=== PATIENT | female | born 1985 | race African-American/Black ===

== ENCOUNTER 2016-12-07 23:38 | Inpatient (IN) | payer MEDICAID ==
[~2016-12-07] VITALS: Ht 160 cm; Wt 78.1 kg
[2016-12-07] MEDS ORDERED: FURO40TA6 PO (23:58)
[2016-12-08] VITALS (7 sets, daily range): BP systolic 143–183; BP diastolic 93–117
[2016-12-08] MEDS ORDERED: PROMETHAZINE 25 MG/ML, 1ML IM ONE (00:30)
[2016-12-08] MEDS ORDERED: SODIUM CHLORIDE FLUSH 10ML SYR IVF ONE (00:30)
[2016-12-08] MEDS ORDERED: PROMETHAZINE 25 MG/ML, 1ML ONE (00:45)
[2016-12-08 00:52] LABS: HEMATOCRIT 26.9 % (34.6-47.8); HEMOGLOBIN 8.9 g/dL (11.7-16.4); WHITE BLOOD COUNT 4.7 x10^3/uL (3.4-10)
[2016-12-08 01:02] LABS: ASPARTATE AMINO TRANSFERASE 16 U/L (15-37); BLOOD UREA NITROGEN 96 mg/dL (7-18)
[2016-12-08 01:19] LABS: IS PT STATUS REG ER OR PRE ER? YES
[2016-12-08] MEDS ORDERED: NITROGLYCERIN OINT 2%, 1GM TP ONE ×2 (01:29→01:30)
[2016-12-08] MEDS ORDERED: FUROSEMIDE 40 MG/4 ML ONE (01:39)
[2016-12-08] MEDS ORDERED: FUROSEMIDE 40 MG/4 ML IV ONE (02:00)
[2016-12-08 02:06] LABS: ACETAMINOPHEN < 2 mcg/mL (10-30)
[2016-12-08] MEDS ORDERED: TEMAZEPAM 15 MG CAPSULE PO PRN (02:30)
[2016-12-08] MEDS ORDERED: SODIUM CHLORIDE 0.9% 1,000 ML IV SCH (02:30)
[2016-12-08 03:16] LABS: TOTAL IRON BINDING CAPACITY 158 mcg/dL (250-450)
[2016-12-08 03:20] LABS: IS PT STATUS REG ER OR PRE ER? NO
[2016-12-08 03:22] LABS: HIV 1&2 ANTIBODY SCREEN Nonreactive (Nonreactive); HIV-1 p24 ANTIGEN Nonreactive (Nonreactive)
[2016-12-08] MEDS: LABETALOL 5MG/ML, 20ML IVPush PRN (03:30)
[2016-12-08 03:32] LABS: DAU SCREEN DISCLAIMER
[2016-12-08 04:41] LABS: OCCBLD OBC PASS
[2016-12-08 08:54] LABS: IS PT STATUS REG ER OR PRE ER? NO
[2016-12-08] MEDS: PANTOPRAZOLE 40 MG IV IVPush SCH (09:32)
[2016-12-08] MEDS ORDERED: CEFTRIAXONE 1,000 MG IM SCH (11:00)
[2016-12-08] MEDS: ARANESP 100 MCG/ML **ESRD SQ SCH (11:30)
[2016-12-08] MEDS: ALBUMIN HUMAN 25% 100 ML IV SCH ×2 (11:53→20:00)
[2016-12-08] MEDS: CARVEDILOL 3.125 MG TABLET PO SCH ×2 (11:53→17:19)
[2016-12-08] MEDS: CALCIUM ACETATE 667 MG CAPSULE PO SCH ×2 (12:40→17:19)
[2016-12-08] MEDS: PARICALCITOL 1 MCG CAPSULE PO SCH (12:40)
[2016-12-08] MEDS: SODIUM BICARBONATE 650 MG TABLET PO SCH ×3 (12:40→20:54)
[2016-12-08] MEDS: CEFTRIAXONE PMX 1GM/50ML 50 ML IV SCH (13:37)
[2016-12-08] MEDS: FUROSEMIDE 100 MG/10 ML IV SCH ×2 (13:38→20:53)
[2016-12-08 14:48] LABS: IS PT STATUS REG ER OR PRE ER? NO
[2016-12-08] MEDS ORDERED: MIDAZOLAM 1 MG/ML, 5ML ONE (17:07)
[2016-12-08] MEDS ORDERED: PROPOFOL 10 MG/ML, 20ML ONE (17:07)
[2016-12-08] MEDS ORDERED: VECURONIUM 10 MG ONE (17:07)
[2016-12-08] MEDS: ONDANSETRON 2MG/ML, 2ML IVPush PRN (17:28)
[2016-12-08] MEDS: hydrALAzine 20 MG/ML, 1ML IV PRN (18:30)
[2016-12-09 00:18] VITALS: BP 157/99
[2016-12-09] MEDS: CARVEDILOL 3.125 MG TABLET PO SCH ×2 (05:45→17:48)
[2016-12-09 05:54] LABS: HEMATOCRIT 24.3 % (34.6-47.8); HEMOGLOBIN 8.1 g/dL (11.7-16.4)
[2016-12-09 06:26] LABS: ASPARTATE AMINO TRANSFERASE 15 U/L (15-37); BLOOD UREA NITROGEN 97 mg/dL (7-18)
[2016-12-09 07:00] VITALS: BP 132/92
[2016-12-09] MEDS: PARICALCITOL 1 MCG CAPSULE PO SCH (08:19)
[2016-12-09] MEDS: PANTOPRAZOLE 40 MG IV IVPush SCH (08:19)
[2016-12-09] MEDS: FUROSEMIDE 100 MG/10 ML IV SCH ×4 (08:20→22:52)
[2016-12-09] MEDS: CALCIUM ACETATE 667 MG CAPSULE PO SCH ×3 (08:20→17:00)
[2016-12-09] MEDS: SODIUM BICARBONATE 650 MG TABLET PO SCH ×3 (08:20→21:12)
[2016-12-09] MEDS: ONDANSETRON 2MG/ML, 2ML IVPush PRN ×2 (08:35→23:42)
[2016-12-09] MEDS: ALBUMIN HUMAN 25% 100 ML IV SCH ×2 (09:56→21:12)
[2016-12-09] MEDS: CEFTRIAXONE PMX 1GM/50ML 50 ML IV SCH (11:20)
[2016-12-09 13:41] LABS: ANA SCREEN POSITIVE (Negative)
[2016-12-09] MEDS ORDERED: MIDAZOLAM 1 MG/ML, 5ML ONE (15:43)
[2016-12-09] MEDS ORDERED: FLUMAZENIL 0.1 MG/1 ML, 5ML ONE (15:43)
[2016-12-09] MEDS ORDERED: FENTANYL PF 100 MCG/2ML ONE (15:43)
[2016-12-09] MEDS ORDERED: NALOXONE 1 MG/ML, 2ML ONE (15:43)
[2016-12-09] MEDS ORDERED: LIDOCAINE 2%, 20ML ONE (16:52)
[2016-12-09 21:05] VITALS: BP 147/96
[2016-12-09] MEDS: ATORVASTATIN 20 MG TABLET PO SCH (21:12)
[2016-12-09 22:51] VITALS: BP 139/96
[2016-12-10 02:46] VITALS: BP 156/88
[2016-12-10 05:48] VITALS: BP 134/86
[2016-12-10] MEDS: CARVEDILOL 3.125 MG TABLET PO SCH ×2 (05:49→18:22)
[2016-12-10 06:12] LABS: BLOOD UREA NITROGEN 73 mg/dL (7-18)
[2016-12-10 07:25] VITALS: BP 136/92
[2016-12-10] MEDS: GUAIFENESIN/DM 200-20MG, 10ML UDC PO PRN (07:45)
[2016-12-10] MEDS: PARICALCITOL 1 MCG CAPSULE PO SCH (07:45)
[2016-12-10] MEDS: SODIUM BICARBONATE 650 MG TABLET PO SCH ×3 (07:45→22:29)
[2016-12-10] MEDS: ONDANSETRON 2MG/ML, 2ML IVPush PRN ×3 (07:45→18:28)
[2016-12-10] MEDS: CALCIUM ACETATE 667 MG CAPSULE PO SCH ×3 (07:47→18:21)
[2016-12-10] MEDS: morphine SULFATE 10 MG/ML, 1ML IVPush PRN ×2 (07:47→22:29)
[2016-12-10] MEDS: ALBUMIN HUMAN 25% 100 ML IV SCH ×2 (10:03→20:53)
[2016-12-10 12:07] LABS: A/G RATIO 0.5 (0.7-1.7); ALBUMIN 1.6 g/dL (2.9-4.4); ALPHA-1-GLOBULIN 0.3 g/dL (0.0-0.4); BETA GLOBULIN 0.7 g/dL (0.7-1.3); GAMMA GLOBULIN 1.7 g/dL (0.4-1.8)
[2016-12-10 12:51] VITALS: BP 135/89
[2016-12-10] MEDS: ERGOCALCIFEROL 50,000 UNIT CAPSULE PO SCH (12:59)
[2016-12-10] MEDS: CEFTRIAXONE PMX 1GM/50ML 50 ML IV SCH (12:59)
[2016-12-10] MEDS: FUROSEMIDE 100 MG/10 ML IV SCH ×2 (12:59→22:29)
[2016-12-10] MEDS: ALBUMIN HUMAN 25% 50 ML IV PRN (15:08)
[2016-12-10 21:00] VITALS: BP 144/97
[2016-12-10] MEDS: ATORVASTATIN 20 MG TABLET PO SCH (22:29)
[2016-12-11 01:50] VITALS: BP 125/79
[2016-12-11 03:06] LABS: COMPLEMENT C3 45 mg/dL (82-167); COMPLEMENT C4 9 mg/dL (14-44); COMPLEMENT TOTAL (CH50) 24 U/mL (42-60)
[2016-12-11 05:41] VITALS: BP 144/97
[2016-12-11] MEDS: CARVEDILOL 3.125 MG TABLET PO SCH (05:42)
[2016-12-11 06:16] LABS: BLOOD UREA NITROGEN 45 mg/dL (7-18)
[2016-12-11 07:23] LABS: WHITE BLOOD COUNT 3.8 x10^3/uL (3.4-10)
[2016-12-11 07:24] LABS: HEMATOCRIT 13.7 % (34.6-47.8); HEMOGLOBIN 4.7 g/dL (11.7-16.4)
[2016-12-11 07:43] LABS: HYPOCHROMIA 1+; OVALOCYTES 1+
[2016-12-11 07:59] VITALS: BP 132/90
[2016-12-11] MEDS: CALCIUM ACETATE 667 MG CAPSULE PO SCH ×2 (08:00→14:54)
[2016-12-11] MEDS ORDERED: LIDOCAINE 1%, 20ML ONE ×2 (08:39→10:21)
[2016-12-11] MEDS ORDERED: FENTANYL PF 100 MCG/2ML ONE (08:47)
[2016-12-11] MEDS ORDERED: MIDAZOLAM 1 MG/ML, 5ML ONE ×2 (08:47→08:48)
[2016-12-11] MEDS ORDERED: NALOXONE 1 MG/ML, 2ML ONE (08:48)
[2016-12-11] MEDS ORDERED: FLUMAZENIL 0.1 MG/1 ML, 5ML ONE (08:48)
[2016-12-11] MEDS: PARICALCITOL 1 MCG CAPSULE PO SCH (09:00)
[2016-12-11] MEDS ORDERED: FUROSEMIDE 20 MG/2 ML ONE (10:10)
[2016-12-11] MEDS ORDERED: BENZOCAINE 20% SPRAY 0.5ML ONE (10:21)
[2016-12-11] MEDS ORDERED: PROPOFOL 100 ML IV ONE (11:08)
[2016-12-11] MEDS ORDERED: VECURONIUM 10 MG ONE ×2 (11:09→14:46)
[2016-12-11] MEDS: hydrALAzine 20 MG/ML, 1ML IV PRN (12:04)
[2016-12-11 12:05] LABS: ABG COLLECTION SITE RIGHT RADIAL; COLLATERAL CIRCULATION TESTING NORMAL
[2016-12-11 12:06] LABS: FIO2 100 %
[2016-12-11 12:07] LABS: UR ALBUMIN 48.4 % (.); UR ALPHA-1-GLOBULIN 4.6 % (.); UR ALPHA-2-GLOBULIN 6.4 % (.); UR BETA GLOBULIN 8.6 % (.); UR GAMMA GLOBULIN 31.9 % (.); UR M-SPIKE % Not Observed % (Not Observed)
[2016-12-11] MEDS: LABETALOL 5MG/ML, 20ML IVPush PRN (12:12)
[2016-12-11] MEDS: ACETAMINOPHEN 325 MG TABLET PO PRN ×2 (12:19→19:53)
[2016-12-11 12:43] LABS: HEMOGLOBIN 8.9 g/dL (11.7-16.4)
[2016-12-11] MEDS: PROPOFOL 100 ML IV PRN ×3 (12:51→23:23)
[2016-12-11] MEDS: CEFTRIAXONE PMX 1GM/50ML 50 ML IV SCH (12:57)
[2016-12-11] MEDS ORDERED: ETOMIDATE 20 MG/10 ML ONE (13:00)
[2016-12-11] MEDS ORDERED: SUCCINYLCHOLINE 20 MG/ML, 10ML ONE (13:00)
[2016-12-11] MEDS ORDERED: LIDOCAINE-MPF 1%, 2ML ONE (13:50)
[2016-12-11] MEDS: ALBUTEROL/IPRATROPIUM 2.5MG/0.5MG, 3 ML INLINE SCH ×3 (14:19→22:54)
[2016-12-11] MEDS ORDERED: VECURONIUM 10 MG IVPush ONE (15:00)
[2016-12-11] MEDS ORDERED: PROPOFOL 100 ML IV PRN (15:26)
[2016-12-11] MEDS ORDERED: LACTULOSE 20 GM/30 ML UDC NG PRN (15:30)
[2016-12-11] MEDS ORDERED: PHARMACY MAY ADJ FOR RENAL FX MC SCH (15:30)
[2016-12-11] MEDS ORDERED: SENNOSIDES 8.8 MG/5 ML ORAL SOL NG PRN (15:30)
[2016-12-11] MEDS ORDERED: LIDOCAINE-MPF 1%, 2ML ENDO PRN (15:30)
[2016-12-11] MEDS ORDERED: SENNA/DOCUSATE TABLET NG PRN (15:30)
[2016-12-11] MEDS ORDERED: BISACODYL 10 MG SUPP PR PRN (15:30)
[2016-12-11] MEDS: FENTANYL PF 100 MCG/2ML IVPush PRN ×3 (17:03→18:14)
[2016-12-11] MEDS ORDERED: VECURONIUM 10 MG IVPush PRN (19:30)
[2016-12-11] MEDS: MIDAZOLAM 1 MG/ML, 2ML IVPush PRN (19:53)
[2016-12-11] MEDS: ATORVASTATIN 20 MG TABLET PO SCH (19:53)
[2016-12-12] MEDS: MIDAZOLAM 1 MG/ML, 2ML IVPush PRN ×2 (01:19→03:03)
[2016-12-12] MEDS: ALBUTEROL/IPRATROPIUM 2.5MG/0.5MG, 3 ML INLINE SCH ×4 (03:00→15:00)
[2016-12-12 04:29] LABS: ABG COLLECTION SITE RIGHT RADIAL; COLLATERAL CIRCULATION TESTING NORMAL
[2016-12-12 05:10] LABS: BLOOD UREA NITROGEN 33 mg/dL (7-18)
[2016-12-12 05:11] LABS: HEMATOCRIT 23.9 % (34.6-47.8); HEMOGLOBIN 8.3 g/dL (11.7-16.4); WHITE BLOOD COUNT 7.8 x10^3/uL (3.4-10)
[2016-12-12 05:14] LABS: ASPARTATE AMINO TRANSFERASE 42 U/L (15-37)
[2016-12-12] MEDS: PROPOFOL 100 ML IV PRN ×2 (05:23→10:30)
[2016-12-12] MEDS ORDERED: PANTOPRAZOLE 40 MG IV IV SCH (09:00)
[2016-12-12] MEDS: CALCIUM ACETATE 667 MG CAPSULE PO SCH ×3 (09:28→18:55)
[2016-12-12] MEDS: PARICALCITOL 1 MCG CAPSULE PO SCH ×2 (09:29→14:47)
[2016-12-12] MEDS: CEFTRIAXONE PMX 1GM/50ML 50 ML IV SCH (12:48)
[2016-12-12] MEDS: ATORVASTATIN 20 MG TABLET PO SCH (19:14)
[2016-12-13] VITALS (9 sets, daily range): BP systolic 122–154; BP diastolic 80–106
[2016-12-13] MEDS: ONDANSETRON 2MG/ML, 2ML IVPush PRN ×3 (01:30→18:01)
[2016-12-13 04:26] LABS: ABG COLLECTION SITE LEFT RADIAL; COLLATERAL CIRCULATION TESTING NORMAL
[2016-12-13 04:37] LABS: WHITE BLOOD COUNT 9.8 x10^3/uL (3.4-10)
[2016-12-13 04:43] LABS: BLOOD UREA NITROGEN 31 mg/dL (7-18)
[2016-12-13 04:48] LABS: HEMATOCRIT 20.6 % (34.6-47.8)
[2016-12-13 05:19] LABS: DIFF TOTAL CELLS COUNTED 100 CELL DIFF
[2016-12-13 05:21] LABS: VERIFY COUNTS? YES
[2016-12-13 05:22] LABS: ANISOCYTOSIS 1+; HYPOCHROMIA 1+; OVALOCYTES 1+; POLYCHROMASIA 1+
[2016-12-13] MEDS: CALCIUM ACETATE 667 MG CAPSULE PO SCH ×3 (09:10→17:53)
[2016-12-13] MEDS: CEFTRIAXONE PMX 1GM/50ML 50 ML IV SCH (14:31)
[2016-12-13] MEDS ORDERED: ALBUTEROL SULFATE 2.5 MG/3 ML ONE (16:41)
[2016-12-13] MEDS ORDERED: ALBUTEROL SULFATE 2.5 MG/3 ML NPPB PRN (17:00)
[2016-12-13] MEDS: ATORVASTATIN 20 MG TABLET PO SCH (21:17)
[2016-12-13] MEDS: GUAIFENESIN/DM 200-20MG, 10ML UDC PO PRN (21:18)
[2016-12-13] MEDS: LABETALOL 5MG/ML, 20ML IVPush PRN (21:30)
[2016-12-13 22:35] LABS: ABG COLLECTION SITE RIGHT BRACHIAL
[2016-12-13] MEDS ORDERED: FUROSEMIDE 100 MG/10 ML IV ONE (23:30)
[2016-12-14] MEDS ORDERED: FENTANYL PF 100 MCG/2ML ONE
[2016-12-14] MEDS ORDERED: FENTANYL PF 2,500 MCG in SODIUM CHLORIDE 0.9% 200 ML IV PRN (00:19)
[2016-12-14] MEDS ORDERED: FENTANYL PF 100 MCG/2ML IVPush PRN (00:30)
[2016-12-14] MEDS ORDERED: BISACODYL 10 MG SUPP PR PRN (00:30)
[2016-12-14] MEDS ORDERED: VECURONIUM 10 MG IVPush ONE (00:30)
[2016-12-14] MEDS ORDERED: SENNOSIDES 8.8 MG/5 ML ORAL SOL NG PRN (00:30)
[2016-12-14] MEDS ORDERED: LACTULOSE 20 GM/30 ML UDC NG PRN (00:30)
[2016-12-14] MEDS ORDERED: MIDAZOLAM 1 MG/ML, 5ML IVPush ONE ×2 (00:30)
[2016-12-14] MEDS ORDERED: FENTANYL PF 100 MCG/2ML IV ONE (00:30)
[2016-12-14] MEDS ORDERED: LIDOCAINE-MPF 1%, 2ML ENDO PRN (00:30)
[2016-12-14] MEDS ORDERED: PHARMACY MAY ADJ FOR RENAL FX MC SCH (00:30)
[2016-12-14] MEDS ORDERED: MIDAZOLAM 1 MG/ML, 2ML IVPush PRN (00:30)
[2016-12-14 01:06] LABS: ABG COLLECTION SITE LEFT BRACHIAL
[2016-12-14] MEDS: ALBUTEROL/IPRATROPIUM 2.5MG/0.5MG, 3 ML INLINE SCH ×6 (02:25→21:21)
[2016-12-14] MEDS: PROPOFOL 100 ML IV PRN ×4 (03:48→19:52)
[2016-12-14 04:23] LABS: ABG COLLECTION SITE RIGHT RADIAL; COLLATERAL CIRCULATION TESTING NORMAL
[2016-12-14 04:29] LABS: HEMATOCRIT 29.2 % (34.6-47.8); HEMOGLOBIN 9.9 g/dL (11.7-16.4); WHITE BLOOD COUNT 8.8 x10^3/uL (3.4-10)
[2016-12-14 04:38] LABS: BLOOD UREA NITROGEN 53 mg/dL (7-18)
[2016-12-14 05:00] VITALS: BP 122/85
[2016-12-14] MEDS: PARICALCITOL 1 MCG CAPSULE PO SCH (09:00)
[2016-12-14] MEDS: CALCIUM ACETATE 667 MG CAPSULE PO SCH ×3 (09:44→19:23)
[2016-12-14] MEDS: CARVEDILOL 3.125 MG TABLET PO SCH ×2 (09:44→19:22)
[2016-12-14] MEDS: PANTOPRAZOLE 40 MG IV IVPush SCH (09:45)
[2016-12-14] MEDS ORDERED: ALBUMIN HUMAN 25% 50 ML IV PRN (10:30)
[2016-12-14] MEDS: ALBUMIN HUMAN 25% 50 ML IV PRN ×2 (12:18→13:15)
[2016-12-14] MEDS: LINEZOLID PMX 600MG/300ML 300 ML IV SCH ×2 (15:00→19:44)
[2016-12-14] MEDS: ATORVASTATIN 20 MG TABLET PO SCH (21:11)
[2016-12-15] MEDS: ALBUTEROL/IPRATROPIUM 2.5MG/0.5MG, 3 ML INLINE SCH ×4 (01:40→14:15)
[2016-12-15] MEDS: PROPOFOL 100 ML IV PRN ×2 (01:42→12:03)
[2016-12-15] MEDS ORDERED: DOPAMINE/D5W PMX 250 ML ONE (03:30)
[2016-12-15] MEDS ORDERED: NOREPINEPHRINE 1 MG/ML, 4ML ONE (03:30)
[2016-12-15 04:00] VITALS: BP 120/70
[2016-12-15 04:16] LABS: ABG COLLECTION SITE RIGHT RADIAL; COLLATERAL CIRCULATION TESTING NORMAL
[2016-12-15 05:02] LABS: HEMATOCRIT 24.4 % (34.6-47.8); HEMOGLOBIN 8.2 g/dL (11.7-16.4); WHITE BLOOD COUNT 6.9 x10^3/uL (3.4-10)
[2016-12-15 05:07] LABS: ASPARTATE AMINO TRANSFERASE 24 U/L (15-37); BLOOD UREA NITROGEN 43 mg/dL (7-18)
[2016-12-15] MEDS: CARVEDILOL 3.125 MG TABLET PO SCH ×2 (05:42→17:43)
[2016-12-15] MEDS: LINEZOLID PMX 600MG/300ML 300 ML IV SCH (07:48)
[2016-12-15] MEDS: PANTOPRAZOLE 40 MG IV IVPush SCH (07:48)
[2016-12-15] MEDS: CALCIUM ACETATE 667 MG CAPSULE PO SCH ×3 (08:00→13:29)
[2016-12-15] MEDS ORDERED: predniSONE 50MG TABLET PO SCH (11:00)
[2016-12-15] MEDS: HEPARIN 5,000 UNITS/ML, 1ML SQ SCH ×2 (11:57→19:59)
[2016-12-15] MEDS: PARICALCITOL 1 MCG CAPSULE PO SCH (13:28)
[2016-12-15] MEDS: CEFAZOLIN PMX 1GM/50ML 50 ML IV SCH (13:29)
[2016-12-15] MEDS: ARANESP 100 MCG/ML **ESRD SQ SCH (15:16)
[2016-12-15] MEDS ORDERED: ALBUTEROL/IPRATROPIUM 2.5MG/0.5MG, 3 ML NPPB SCH (19:00)
[2016-12-15] MEDS: ATORVASTATIN 20 MG TABLET PO SCH (20:00)
[2016-12-16 04:25] LABS: ABG COLLECTION SITE RIGHT RADIAL
[2016-12-16 04:26] LABS: COLLATERAL CIRCULATION TESTING NORMAL
[2016-12-16 04:29] LABS: HEMATOCRIT 25.3 % (34.6-47.8); HEMOGLOBIN 8.5 g/dL (11.7-16.4); WHITE BLOOD COUNT 9.7 x10^3/uL (3.4-10)
[2016-12-16 04:41] LABS: BLOOD UREA NITROGEN 41 mg/dL (7-18)
[2016-12-16] MEDS: CARVEDILOL 3.125 MG TABLET PO SCH ×2 (05:15→18:25)
[2016-12-16] MEDS: SENNA/DOCUSATE TABLET NG PRN ×2 (05:15→10:06)
[2016-12-16 05:30] VITALS: BP 130/90
[2016-12-16] MEDS: ONDANSETRON 2MG/ML, 2ML IVPush PRN (08:23)
[2016-12-16] MEDS: GUAIFENESIN/DM 200-20MG, 10ML UDC PO PRN (08:24)
[2016-12-16] MEDS: PANTOPRAZOLE 40 MG IV IVPush SCH (08:24)
[2016-12-16] MEDS: CALCIUM ACETATE 667 MG CAPSULE PO SCH ×3 (10:00→18:26)
[2016-12-16] MEDS: HEPARIN 5,000 UNITS/ML, 1ML SQ SCH ×2 (10:06→21:42)
[2016-12-16] MEDS: PARICALCITOL 1 MCG CAPSULE PO SCH (10:07)
[2016-12-16] MEDS: CEFAZOLIN PMX 1GM/50ML 50 ML IV SCH (15:30)
[2016-12-16 20:00] VITALS: BP 135/81
[2016-12-16] MEDS: ATORVASTATIN 20 MG TABLET PO SCH (21:42)
[2016-12-17 02:00] VITALS: BP 137/86
[2016-12-17] MEDS: CARVEDILOL 3.125 MG TABLET PO SCH ×2 (05:36→17:22)
[2016-12-17 06:31] LABS: ABG COLLECTION SITE RIGHT RADIAL; COLLATERAL CIRCULATION TESTING NORMAL
[2016-12-17 06:38] LABS: HEMATOCRIT 28.2 % (34.6-47.8); HEMOGLOBIN 9.4 g/dL (11.7-16.4); WHITE BLOOD COUNT 7.9 x10^3/uL (3.4-10)
[2016-12-17 06:45] LABS: BLOOD UREA NITROGEN 32 mg/dL (7-18)
[2016-12-17 07:45] VITALS: BP 138/88
[2016-12-17] MEDS: CALCIUM ACETATE 667 MG CAPSULE PO SCH ×3 (09:11→17:22)
[2016-12-17] MEDS: HEPARIN 5,000 UNITS/ML, 1ML SQ SCH ×2 (09:30→21:23)
[2016-12-17] MEDS: PANTOPRAZOLE 40 MG IV IVPush SCH (13:49)
[2016-12-17] MEDS: CEFAZOLIN PMX 1GM/50ML 50 ML IV SCH (13:49)
[2016-12-17] MEDS: ERGOCALCIFEROL 50,000 UNIT CAPSULE PO SCH (13:49)
[2016-12-17] MEDS: PARICALCITOL 1 MCG CAPSULE PO SCH (13:49)
[2016-12-17 14:39] VITALS: BP 141/91
[2016-12-17 20:00] VITALS: BP 130/87
[2016-12-17] MEDS: ATORVASTATIN 20 MG TABLET PO SCH (21:23)
[2016-12-18 02:00] VITALS: BP 146/92
[2016-12-18] MEDS: CARVEDILOL 3.125 MG TABLET PO SCH ×2 (05:29→17:44)
[2016-12-18 05:37] LABS: HEMATOCRIT 28.8 % (34.6-47.8); HEMOGLOBIN 9.6 g/dL (11.7-16.4); WHITE BLOOD COUNT 8.3 x10^3/uL (3.4-10)
[2016-12-18 05:44] LABS: BLOOD UREA NITROGEN 33 mg/dL (7-18)
[2016-12-18 08:46] VITALS: BP 149/92
[2016-12-18] MEDS: PANTOPRAZOLE 40 MG IV IVPush SCH (08:50)
[2016-12-18] MEDS: HEPARIN 5,000 UNITS/ML, 1ML SQ SCH ×2 (08:51→21:13)
[2016-12-18] MEDS: CALCIUM ACETATE 667 MG CAPSULE PO SCH ×3 (08:51→17:43)
[2016-12-18] MEDS: PARICALCITOL 1 MCG CAPSULE PO SCH (13:51)
[2016-12-18] MEDS: CEFAZOLIN PMX 1GM/50ML 50 ML IV SCH (13:51)
[2016-12-18 15:33] VITALS: BP 147/105
[2016-12-18 18:49] VITALS: BP 153/102
[2016-12-18] MEDS: ATORVASTATIN 20 MG TABLET PO SCH (21:13)
[2016-12-19 02:52] VITALS: BP 126/87
[2016-12-19 05:00] LABS: HEMATOCRIT 28.5 % (34.6-47.8); HEMOGLOBIN 9.4 g/dL (11.7-16.4); WHITE BLOOD COUNT 9.6 x10^3/uL (3.4-10)
[2016-12-19 05:16] LABS: BLOOD UREA NITROGEN 60 mg/dL (7-18)
[2016-12-19] MEDS: CARVEDILOL 3.125 MG TABLET PO SCH ×2 (05:45→18:19)
[2016-12-19 06:58] VITALS: BP 150/107
[2016-12-19] MEDS: HEPARIN 5,000 UNITS/ML, 1ML SQ SCH ×2 (09:05→21:19)
[2016-12-19] MEDS: PARICALCITOL 1 MCG CAPSULE PO SCH (09:05)
[2016-12-19] MEDS: CALCIUM ACETATE 667 MG CAPSULE PO SCH ×3 (09:05→18:19)
[2016-12-19] MEDS: PANTOPROZOLE 40MG TABLET PO SCH (12:24)
[2016-12-19] MEDS: CEFAZOLIN PMX 1GM/50ML 50 ML IV SCH (13:19)
[2016-12-19 15:22] VITALS: BP 132/91
[2016-12-19 19:37] VITALS: BP 127/92
[2016-12-19] MEDS: ATORVASTATIN 20 MG TABLET PO SCH (21:19)
[2016-12-20 01:40] VITALS: BP 138/89
[2016-12-20 05:42] LABS: BLOOD UREA NITROGEN 48 mg/dL (7-18)
[2016-12-20] MEDS: CARVEDILOL 3.125 MG TABLET PO SCH ×2 (05:42→17:07)
[2016-12-20 06:01] LABS: HEMATOCRIT 29.5 % (34.6-47.8); HEMOGLOBIN 9.7 g/dL (11.7-16.4); WHITE BLOOD COUNT 11.7 x10^3/uL (3.4-10)
[2016-12-20 06:45] LABS: ANISOCYTOSIS 2+
[2016-12-20 06:46] LABS: LARGE PLATELETS 1+; POLYCHROMASIA 2+
[2016-12-20 06:47] LABS: POIKILOCYTOSIS 1+; SPHEROCYTES 1+
[2016-12-20 08:18] VITALS: BP 148/106
[2016-12-20] MEDS: CALCIUM ACETATE 667 MG CAPSULE PO SCH ×3 (08:47→17:07)
[2016-12-20] MEDS: PANTOPROZOLE 40MG TABLET PO SCH (08:47)
[2016-12-20] MEDS: PARICALCITOL 1 MCG CAPSULE PO SCH (08:48)
[2016-12-20] MEDS: HEPARIN 5,000 UNITS/ML, 1ML SQ SCH ×2 (08:49→21:06)
[2016-12-20 13:16] VITALS: BP 137/88
[2016-12-20 13:58] LABS: BLOOD UREA NITROGEN 57 mg/dL (7-18)
[2016-12-20] MEDS: CEFAZOLIN PMX 1GM/50ML 50 ML IV SCH (14:26)
[2016-12-20 20:00] VITALS: BP 159/101
[2016-12-20] MEDS: ATORVASTATIN 20 MG TABLET PO SCH (21:05)
[2016-12-20 21:10] VITALS: BP 149/106
[2016-12-21 03:59] VITALS: BP 147/96
[2016-12-21] MEDS: CARVEDILOL 3.125 MG TABLET PO SCH ×2 (05:38→17:07)
[2016-12-21 06:06] LABS: HEMATOCRIT 29.1 % (34.6-47.8); HEMOGLOBIN 9.7 g/dL (11.7-16.4); WHITE BLOOD COUNT 12.2 x10^3/uL (3.4-10)
[2016-12-21 06:37] LABS: ASPARTATE AMINO TRANSFERASE 27 U/L (15-37); BLOOD UREA NITROGEN 66 mg/dL (7-18)
[2016-12-21 08:35] VITALS: BP 131/85
[2016-12-21] MEDS: HEPARIN 5,000 UNITS/ML, 1ML SQ SCH ×2 (08:49→21:17)
[2016-12-21] MEDS: PANTOPROZOLE 40MG TABLET PO SCH (08:49)
[2016-12-21] MEDS: PARICALCITOL 1 MCG CAPSULE PO SCH (08:49)
[2016-12-21] MEDS: CALCIUM ACETATE 667 MG CAPSULE PO SCH ×3 (08:50→17:06)
[2016-12-21 12:53] VITALS: BP 147/110
[2016-12-21] MEDS: CEFAZOLIN PMX 1GM/50ML 50 ML IV SCH (14:58)
[2016-12-21 17:07] VITALS: BP 131/97
[2016-12-21] MEDS: ONDANSETRON 2MG/ML, 2ML IVPush PRN (18:49)
[2016-12-21] MEDS ORDERED: TEMAZEPAM 15 MG CAPSULE PO PRN (20:30)
[2016-12-21] MEDS ORDERED: PHARMACY MAY ADJ FOR RENAL FX MC SCH (20:30)
[2016-12-21] MEDS ORDERED: BISACODYL 10 MG SUPP PR PRN ×2 (20:30)
[2016-12-21] MEDS ORDERED: ACETAMINOPHEN 325 MG TABLET PO PRN (20:30)
[2016-12-21] MEDS ORDERED: FENTANYL PF 100 MCG/2ML IVPush PRN (20:30)
[2016-12-21 20:56] VITALS: BP 165/109
[2016-12-21] MEDS: ATORVASTATIN 20 MG TABLET PO SCH (21:00)
[2016-12-22 02:18] VITALS: BP 152/90
[2016-12-22] MEDS: CARVEDILOL 3.125 MG TABLET PO SCH ×2 (05:20→18:45)
[2016-12-22 06:00] LABS: HEMATOCRIT 27.9 % (34.6-47.8); HEMOGLOBIN 9.4 g/dL (11.7-16.4); WHITE BLOOD COUNT 12.9 x10^3/uL (3.4-10)
[2016-12-22 06:06] LABS: BLOOD UREA NITROGEN 86 mg/dL (7-18)
[2016-12-22 07:13] VITALS: BP 148/90
[2016-12-22] MEDS: CALCIUM ACETATE 667 MG CAPSULE PO SCH ×3 (08:30→18:45)
[2016-12-22] MEDS: PANTOPROZOLE 40MG TABLET PO SCH (08:30)
[2016-12-22] MEDS: HEPARIN 5,000 UNITS/ML, 1ML SQ SCH (12:07)
[2016-12-22] MEDS: ARANESP 100 MCG/ML **ESRD SQ SCH (12:07)
[2016-12-22] MEDS: LISINOPRIL 10 MG TABLET PO SCH ×2 (12:08→21:21)
[2016-12-22] MEDS: CALCITRIOL 0.25 MCG CAPSULE PO SCH (12:08)
[2016-12-22 15:00] VITALS: BP 144/92
[2016-12-22] MEDS: CEFAZOLIN PMX 1GM/50ML 50 ML IV SCH (16:24)
[2016-12-22 20:26] VITALS: BP 152/100
[2016-12-22] MEDS: ATORVASTATIN 20 MG TABLET PO SCH (21:21)
[2016-12-23] MEDS: HEPARIN 5,000 UNITS/ML, 1ML SQ SCH ×2 (00:33→12:27)
[2016-12-23 01:34] VITALS: BP 149/93
[2016-12-23] MEDS: CARVEDILOL 3.125 MG TABLET PO SCH ×2 (05:31→17:28)
[2016-12-23 07:33] VITALS: BP 143/91
[2016-12-23 07:45] LABS: ASPARTATE AMINO TRANSFERASE 23 U/L (15-37); BLOOD UREA NITROGEN 49 mg/dL (7-18)
[2016-12-23 08:23] LABS: HEMATOCRIT 28.9 % (34.6-47.8); HEMOGLOBIN 9.6 g/dL (11.7-16.4); WHITE BLOOD COUNT 11.8 x10^3/uL (3.4-10)
[2016-12-23] MEDS: LISINOPRIL 10 MG TABLET PO SCH ×2 (09:14→20:33)
[2016-12-23] MEDS: CALCITRIOL 0.25 MCG CAPSULE PO SCH (09:14)
[2016-12-23] MEDS: PANTOPROZOLE 40MG TABLET PO SCH (09:14)
[2016-12-23] MEDS: CALCIUM ACETATE 667 MG CAPSULE PO SCH ×3 (09:14→17:28)
[2016-12-23] MEDS: CEFAZOLIN PMX 1GM/50ML 50 ML IV SCH (14:50)
[2016-12-23 14:57] VITALS: BP 125/89
[2016-12-23 20:00] VITALS: BP 134/98
[2016-12-23] MEDS: ATORVASTATIN 20 MG TABLET PO SCH (20:33)
[2016-12-24] MEDS: HEPARIN 5,000 UNITS/ML, 1ML SQ SCH ×2 (00:06→12:00)
[2016-12-24 01:24] VITALS: BP 155/103
[2016-12-24 05:15] LABS: HEMATOCRIT 28.8 % (34.6-47.8); HEMOGLOBIN 9.5 g/dL (11.7-16.4)
[2016-12-24 05:25] LABS: BLOOD UREA NITROGEN 47 mg/dL (7-18)
[2016-12-24] MEDS: CARVEDILOL 3.125 MG TABLET PO SCH (05:28)
[2016-12-24 08:01] VITALS: BP 153/92
[2016-12-24] MEDS ORDERED: PANT40TA5 PO (08:27)
[2016-12-24] MEDS ORDERED: ATOR20TA9 PO (08:27)
[2016-12-24] MEDS ORDERED: PRED20TA PO ×2 (08:27→08:37)
[2016-12-24] MEDS ORDERED: MYCO250C PO (08:27)
[2016-12-24] MEDS ORDERED: CALC0.25 PO (08:27)
[2016-12-24] MEDS ORDERED: CARV3.1212 PO (08:27)
[2016-12-24] MEDS ORDERED: LISI-167 PO (08:27)
[2016-12-24] MEDS ORDERED: ERGO500017 PO (08:27)
[2016-12-24] MEDS ORDERED: CEFD300C37 PO (08:32)
[2016-12-24] MEDS: CALCITRIOL 0.25 MCG CAPSULE PO SCH (08:32)
[2016-12-24] MEDS: ERGOCALCIFEROL 50,000 UNIT CAPSULE PO SCH (08:32)
[2016-12-24] MEDS: LISINOPRIL 10 MG TABLET PO SCH (08:32)
[2016-12-24] MEDS: CALCIUM ACETATE 667 MG CAPSULE PO SCH (08:33)
[2016-12-24] MEDS: PANTOPROZOLE 40MG TABLET PO SCH (08:33)
[2016-12-24] MEDS ORDERED: FUROSEMIDE 80 MG TABLET PO SCH (10:00)
== END 2016-12-24 13:30 | disposition home health service (06) | DRG 270 ==
LOC: ED 23:59 → EDIP 12-08 01:34 → 5SO 12-08 03:02 → 4EST 12-08 12:30 → CCU 12-11 10:46 → 4WST 12-13 16:51 → CCU 12-13 22:54 → 4WST 12-16 16:59 → DCLOUNGE 12-24 13:05
PROVIDERS: ADMIT Internal Medicine; ATTEND Internal Medicine
PROC: 5A1D60Z (ICD-10-PCS; 2016-12-08)
PROC: 02HV33Z Insertion of Infusion Device into Superior Vena Cava, Percutaneous Approach (ICD-10-PCS; principal; 2016-12-09)
PROC: B5181ZA Fluoroscopy of Superior Vena Cava using Low Osmolar Contrast, Guidance (ICD-10-PCS; 2016-12-09)
PROC: 0TB13ZX Excision of Left Kidney, Percutaneous Approach, Diagnostic (ICD-10-PCS; 2016-12-09)
PROC: 04VA3DZ Restriction of Left Renal Artery with Intraluminal Device, Percutaneous Approach (ICD-10-PCS; 2016-12-11)
PROC: 30233N1 Transfusion of Nonautologous Red Blood Cells into Peripheral Vein, Percutaneous Approach (ICD-10-PCS; 2016-12-11)
PROC: 02HV33Z Insertion of Infusion Device into Superior Vena Cava, Percutaneous Approach (ICD-10-PCS; 2016-12-11)
PROC: B548ZZA Ultrasonography of Superior Vena Cava, Guidance (ICD-10-PCS; 2016-12-11)
PROC: B5181ZA Fluoroscopy of Superior Vena Cava using Low Osmolar Contrast, Guidance (ICD-10-PCS; 2016-12-11)
PROC: 5A1955Z Respiratory Ventilation, Greater than 96 Consecutive Hours (ICD-10-PCS; 2016-12-11)
PROC: 0BH17EZ Insertion of Endotracheal Airway into Trachea, Via Natural or Artificial Opening (ICD-10-PCS; 2016-12-11)
DX: I13.2 Hypertensive heart and chronic kidney disease with heart failure and with stage 5 chronic kidney disease, or end stage renal disease (principal); J96.01 Acute respiratory failure with hypoxia; E43 Unspecified severe protein-calorie malnutrition; J15.211 Pneumonia due to Methicillin susceptible Staphylococcus aureus; K66.1 Hemoperitoneum; N17.9 Acute kidney failure, unspecified; Z99.11 Dependence on respirator [ventilator] status; I31.3 Pericardial effusion (noninflammatory); N18.6 End stage renal disease; I50.41 Acute combined systolic (congestive) and diastolic (congestive) heart failure; E87.2 Acidosis; R18.8 Other ascites; D62 Acute posthemorrhagic anemia; E87.1 Hypo-osmolality and hyponatremia; I16.9 Hypertensive crisis, unspecified; J98.11 Atelectasis; N39.0 Urinary tract infection, site not specified; S37.012A Minor contusion of left kidney, initial encounter; N02.2 Recurrent and persistent hematuria with diffuse membranous glomerulonephritis; N04.9 Nephrotic syndrome with unspecified morphologic changes; B96.20 Unspecified Escherichia coli [E. coli] as the cause of diseases classified elsewhere; E77.8 Other disorders of glycoprotein metabolism; E83.42 Hypomagnesemia; E83.39 Other disorders of phosphorus metabolism; D63.1 Anemia in chronic kidney disease; E78.5 Hyperlipidemia, unspecified; E83.51 Hypocalcemia; I34.0 Nonrheumatic mitral (valve) insufficiency; J98.01 Acute bronchospasm; M32.14 Glomerular disease in systemic lupus erythematosus; T38.0X5A Adverse effect of glucocorticoids and synthetic analogues, initial encounter; Z84.1 Family history of disorders of kidney and ureter; Z99.2 Dependence on renal dialysis; Y83.8 Other surgical procedures as the cause of abnormal reaction of the patient, or of later complication, without mention of misadventure at the time of the procedure; Y92.238 Other place in hospital as the place of occurrence of the external cause; Y93.89 Activity, other specified; Y99.8 Other external cause status
CPT/HCPCS: 36415; 36558; 36569; 36600; 37243; 50200; 71010; 71020; 74000; 74176; 76770; 76937; 77001; 77012; 80048; 80053; 80061; 80069; 80074; 80307; 80329; 81001; 82040; 82272; 82306; 82550; 82570; 82607; 82728; 82746; 82803; 83516; 83540; 83550; 83690; 83735; 83880; 83970; 84100; 84134; 84155; 84156; 84165; 84166; 84478; 84484; 84550; 84703; 85014; 85018; 85025; 85045; 85610; 85651; 85730; 86038; 86039; 86160; 86162; 86225; 86256; 86480; 86703; 86706; 86850; 86900; 86923; 87070; 87077; 87081; 87086; 87186; 87205; 87324; 87899; 88300; 88329; 93005; 93306; 94002; 94003; 94150; 94640; 96372; 96374; 99156; 99157; J0690; J0696; J0882; J1644; J1940; J2020; J2250; J2405; J2550; J2704; J2930; J3010; J3490; J7517; J7613; J7620; P9047; C1750; C1751; C1760; C1769; C1894; C9113; G0435; G0479; G0480; J0330; J0360; J1642; J2270; J2310; J7050; J7512; P9016

== ENCOUNTER 2017-01-15 19:55 | Emergency (ER) | payer MEDICAID ==
[~2017-01-15] VITALS: Ht 160 cm; Wt 54.7 kg
[~2017-01-15 19:55] MED LIST: ATOR20TA9 PO; CALC0.25 PO; CARV3.1212 PO; CEFD300C37 PO; ERGO500017 PO; FURO40TA6 PO; LISI-167 PO; MYCO250C PO; PANT40TA5 PO; PRED20TA PO
[2017-01-15 19:57] VITALS: BP 152/115
[2017-01-15 20:49] LABS: HEMATOCRIT 29.3 % (34.6-47.8); HEMOGLOBIN 9.7 g/dL (11.7-16.4); WHITE BLOOD COUNT 4.4 x10^3/uL (3.4-10)
[2017-01-15 21:02] LABS: ASPARTATE AMINO TRANSFERASE 31 U/L (15-37); BLOOD UREA NITROGEN 13 mg/dL (7-18)
== END 2017-01-15 21:44 | disposition home or self-care (01) ==
LOC: ED 21:00
DX: K64.8 Other hemorrhoids (principal); I11.0 Hypertensive heart disease with heart failure; I50.9 Heart failure, unspecified; L93.0 Discoid lupus erythematosus
CPT/HCPCS: 36415; 80053; 85025; 99284

== ENCOUNTER 2017-02-01 23:01 | Inpatient (IN) | payer MEDICAID ==
[~2017-02-01] VITALS: Ht 160 cm; Wt 53.6 kg
[2017-02-01] MEDS ORDERED: SODIUM CHLORIDE FLUSH 10ML SYR IVF ONE (23:30)
[2017-02-01 23:33] LABS: HEMATOCRIT 24.6 % (34.6-47.8); HEMOGLOBIN 8.1 g/dL (11.7-16.4)
[2017-02-01 23:48] LABS: ASPARTATE AMINO TRANSFERASE 17 U/L (15-37); BLOOD UREA NITROGEN 39 mg/dL (7-18)
[2017-02-01 23:53] LABS: IS PT STATUS REG ER OR PRE ER? YES
[2017-02-02] MEDS ORDERED: ONDANSETRON 2MG/ML, 2ML IVPush PRN (02:30)
[2017-02-02 03:22] VITALS: BP 160/104
[2017-02-02] MEDS ORDERED: hydrALAzine 20 MG/ML, 1ML IV ONE (04:00)
[2017-02-02 04:39] VITALS: BP 153/104
[2017-02-02] MEDS: CARVEDILOL 3.125 MG TABLET PO SCH ×2 (05:10→18:32)
[2017-02-02 07:45] VITALS: BP 160/104
[2017-02-02] MEDS: PANTOPROZOLE 40MG TABLET PO SCH (08:34)
[2017-02-02] MEDS ORDERED: CALCITRIOL 0.25 MCG CAPSULE PO SCH (09:00)
[2017-02-02] MEDS ORDERED: ERGOCALCIFEROL 50,000 UNIT CAPSULE PO SCH (09:00)
[2017-02-02] MEDS ORDERED: LISINOPRIL 10 MG TABLET PO SCH (09:00)
[2017-02-02] MEDS ORDERED: POTASSIUM PHOSPHATE 44 MEQ in SODIUM CHLORIDE 0.9% 500 ML IV ONE (09:30)
[2017-02-02] MEDS: NEUTRA PHOS K 250 MG TABLET PO SCH ×3 (09:59→20:54)
[2017-02-02 10:55] LABS: FERRITIN 1775.1 ng/mL (8-252)
[2017-02-02 13:00] VITALS: BP 153/103
[2017-02-02 20:53] VITALS: BP 153/112
[2017-02-02] MEDS: ATORVASTATIN 20 MG TABLET PO SCH (20:54)
[2017-02-02] MEDS: LOSARTAN 25MG TABLET PO SCH (21:27)
[2017-02-02 22:39] VITALS: BP 160/120
[2017-02-03] VITALS (8 sets, daily range): BP systolic 134–152; BP diastolic 93–110
[2017-02-03] MEDS: CARVEDILOL 3.125 MG TABLET PO SCH ×2 (04:55→18:00)
[2017-02-03 05:38] LABS: HEMATOCRIT 24.7 % (34.6-47.8); HEMOGLOBIN 8.2 g/dL (11.7-16.4)
[2017-02-03 06:00] LABS: ASPARTATE AMINO TRANSFERASE 18 U/L (15-37); BLOOD UREA NITROGEN 20 mg/dL (7-18)
[2017-02-03] MEDS: PANTOPROZOLE 40MG TABLET PO SCH (08:36)
[2017-02-03] MEDS ORDERED: MAGNESIUM SULFATE PMX 2GM/50ML 50 ML IV ONE (10:30)
[2017-02-03 11:19] LABS: HEP B SURF. AB > 1000.0 mIU/mL (0.0-10.0)
[2017-02-03] MEDS: LOSARTAN 25MG TABLET PO SCH (20:21)
[2017-02-03] MEDS: CARVEDILOL 6.25 MG TABLET PO SCH (20:21)
[2017-02-03] MEDS: ATORVASTATIN 20 MG TABLET PO SCH (20:21)
[2017-02-04 02:00] VITALS: BP 142/96
[2017-02-04 05:18] LABS: HEMATOCRIT 24.5 % (34.6-47.8); HEMOGLOBIN 8.1 g/dL (11.7-16.4); WHITE BLOOD COUNT 5.9 x10^3/uL (3.4-10)
[2017-02-04 05:42] LABS: ASPARTATE AMINO TRANSFERASE 18 U/L (15-37); BLOOD UREA NITROGEN 15 mg/dL (7-18)
[2017-02-04 07:25] VITALS: BP 140/102
[2017-02-04] MEDS: CALCITRIOL 0.25 MCG CAPSULE PO SCH (08:08)
[2017-02-04] MEDS: PANTOPROZOLE 40MG TABLET PO SCH (08:09)
[2017-02-04] MEDS: CARVEDILOL 6.25 MG TABLET PO SCH ×2 (08:09→20:19)
[2017-02-04 12:35] VITALS: BP 145/108
[2017-02-04 19:42] VITALS: BP 144/110
[2017-02-04] MEDS: VANCOMYCIN 50 MG/ML ORAL SUSP PO SCH (20:18)
[2017-02-04] MEDS: LOSARTAN 25MG TABLET PO SCH (20:19)
[2017-02-04] MEDS: ATORVASTATIN 20 MG TABLET PO SCH (20:19)
[2017-02-04 22:27] VITALS: BP 144/101
[2017-02-04 22:37] VITALS: BP 137/101
[2017-02-05] MEDS: VANCOMYCIN 50 MG/ML ORAL SUSP PO SCH (01:34)
[2017-02-05 01:35] VITALS: BP 122/88
[2017-02-05 05:36] LABS: HEMATOCRIT 26.4 % (34.6-47.8); HEMOGLOBIN 8.7 g/dL (11.7-16.4); WHITE BLOOD COUNT 5.9 x10^3/uL (3.4-10)
[2017-02-05 05:56] LABS: ASPARTATE AMINO TRANSFERASE 17 U/L (15-37); BLOOD UREA NITROGEN 34 mg/dL (7-18)
[2017-02-05 08:04] VITALS: BP 134/98
[2017-02-05 08:30] VITALS: BP 134/98
[2017-02-05] MEDS: CARVEDILOL 6.25 MG TABLET PO SCH (09:26)
[2017-02-05] MEDS: metroNIDAZOLE 500 MG TABLET PO SCH ×2 (09:27→21:55)
[2017-02-05] MEDS: PANTOPROZOLE 40MG TABLET PO SCH (09:27)
[2017-02-05 13:41] VITALS: BP 122/87
[2017-02-05 20:37] VITALS: BP 141/101
[2017-02-05] MEDS: CARVEDILOL 12.5 MG TABLET PO SCH (21:55)
[2017-02-05] MEDS: LOSARTAN 25MG TABLET PO SCH (21:55)
[2017-02-05] MEDS: ATORVASTATIN 20 MG TABLET PO SCH (21:55)
[2017-02-05 23:17] VITALS: BP 119/81
[2017-02-06 01:00] VITALS: BP 124/87
[2017-02-06 06:19] LABS: ASPARTATE AMINO TRANSFERASE 15 U/L (15-37); BLOOD UREA NITROGEN 21 mg/dL (7-18)
[2017-02-06] MEDS: metroNIDAZOLE 500 MG TABLET PO SCH ×3 (06:20→21:36)
[2017-02-06 07:01] VITALS: BP 156/111
[2017-02-06] MEDS: PANTOPROZOLE 40MG TABLET PO SCH (07:19)
[2017-02-06] MEDS: CARVEDILOL 12.5 MG TABLET PO SCH ×2 (08:58→21:36)
[2017-02-06] MEDS: CALCITRIOL 0.25 MCG CAPSULE PO SCH (09:38)
[2017-02-06 10:26] VITALS: BP 140/89
[2017-02-06 14:16] VITALS: BP 141/101
[2017-02-06 19:01] VITALS: BP 140/100
[2017-02-06] MEDS: ATORVASTATIN 20 MG TABLET PO SCH (21:36)
[2017-02-06] MEDS: LOSARTAN 25MG TABLET PO SCH (21:36)
[2017-02-07 01:08] VITALS: BP 140/101
[2017-02-07] MEDS: metroNIDAZOLE 500 MG TABLET PO SCH ×2 (05:51→16:35)
[2017-02-07 06:14] LABS: BLOOD UREA NITROGEN 54 mg/dL (7-18)
[2017-02-07] MEDS: PANTOPROZOLE 40MG TABLET PO SCH (07:45)
[2017-02-07 07:46] VITALS: BP 136/108
[2017-02-07] MEDS: CARVEDILOL 12.5 MG TABLET PO SCH (08:20)
[2017-02-07] MEDS ORDERED: LOSA50TA2 PO (10:46)
[2017-02-07] MEDS ORDERED: CARV6.2512 PO (10:46)
[2017-02-07] MEDS ORDERED: METR500T PO (10:46)
[2017-02-07] MEDS ORDERED: CARVEDILOL 6.25 MG TABLET PO ONE (11:00)
[2017-02-07 12:42] VITALS: BP 121/84
[2017-02-07] MEDS ORDERED: PNEUMOCOCCAL 23 VACCINE IM-VACC ONE (14:00)
[2017-02-07] MEDS ORDERED: CARVEDILOL 6.25 MG TABLET PO SCH (21:00)
== END 2017-02-07 17:47 | disposition home or self-care (01) | DRG 545 ==
LOC: ED 23:36 → SUATTDRO 02-02 01:47 → EDIP 02-02 02:01 → 4WST 02-02 03:08
PROVIDERS: ADMIT Hospitalist; ATTEND Hospitalist
PROC: 5A1D70Z Performance of Urinary Filtration, Intermittent, Less than 6 Hours Per Day (ICD-10-PCS; 2017-02-02)
PROC: 5A1D70Z Performance of Urinary Filtration, Intermittent, Less than 6 Hours Per Day (ICD-10-PCS; 2017-02-03)
PROC: 5A1D70Z Performance of Urinary Filtration, Intermittent, Less than 6 Hours Per Day (ICD-10-PCS; principal; 2017-02-04)
PROC: 5A1D70Z Performance of Urinary Filtration, Intermittent, Less than 6 Hours Per Day (ICD-10-PCS; 2017-02-05)
PROC: 5A1D70Z Performance of Urinary Filtration, Intermittent, Less than 6 Hours Per Day (ICD-10-PCS; 2017-02-06)
PROC: 5A1D70Z Performance of Urinary Filtration, Intermittent, Less than 6 Hours Per Day (ICD-10-PCS; 2017-02-07)
DX: M32.14 Glomerular disease in systemic lupus erythematosus (principal); N18.6 End stage renal disease; I13.2 Hypertensive heart and chronic kidney disease with heart failure and with stage 5 chronic kidney disease, or end stage renal disease; Z99.11 Dependence on respirator [ventilator] status; N17.9 Acute kidney failure, unspecified; A04.72 Enterocolitis due to Clostridium difficile, not specified as recurrent; E83.39 Other disorders of phosphorus metabolism; E83.42 Hypomagnesemia; I08.1 Rheumatic disorders of both mitral and tricuspid valves; E87.1 Hypo-osmolality and hyponatremia; I31.3 Pericardial effusion (noninflammatory); I42.9 Cardiomyopathy, unspecified; I50.20 Unspecified systolic (congestive) heart failure; Q21.1 Atrial septal defect; I27.20 Pulmonary hypertension, unspecified; D63.8 Anemia in other chronic diseases classified elsewhere; E78.5 Hyperlipidemia, unspecified; Z84.1 Family history of disorders of kidney and ureter; Z87.440 Personal history of urinary (tract) infections; Z87.891 Personal history of nicotine dependence; Z99.2 Dependence on renal dialysis
CPT/HCPCS: 36415; 71010; 78582; 80048; 80053; 80074; 82306; 82728; 83540; 83550; 83735; 83880; 83970; 84100; 84443; 84484; 84550; 85025; 85379; 86706; 87324; 90732; 93005; 93306; 99285; J3370; J7517; A9540; A9558; C9898; J0360; J3475; J7040; J7512

== ENCOUNTER 2017-04-27 06:29 | Day surgery (SDC) | payer MEDICAID ==
[~2017-04-27] VITALS: Ht 160 cm; Wt 49.4 kg
[~2017-04-27 06:29] MED LIST changes: +CARV6.2512 PO; +LOSA50TA2 PO; +METR500T PO
[2017-04-27] MEDS ORDERED: BUPIVACAINE/PF 0.5% ONE (06:55)
[2017-04-27] MEDS ORDERED: LIDOCAINE 1%, 2ML ONE (07:02)
[2017-04-27] MEDS ORDERED: LIDOCAINE GEL 2%, 5ML ONE (07:09)
[2017-04-27] MEDS ORDERED: PROPOFOL 10 MG/ML, 20ML ONE (07:14)
[2017-04-27] MEDS ORDERED: DEXAMETHASONE 4 MG/ML, 1ML ONE (07:14)
[2017-04-27] MEDS ORDERED: CEFAZOLIN 1,000 MG ONE (07:14)
[2017-04-27] MEDS ORDERED: ONDANSETRON 2MG/ML, 2ML ONE (07:14)
[2017-04-27] MEDS ORDERED: FENTANYL PF 100 MCG/2ML ONE ×2 (07:15→08:39)
[2017-04-27] MEDS ORDERED: MIDAZOLAM 1 MG/ML, 2ML ONE (07:15)
[2017-04-27 07:18] VITALS: BP 141/107
[2017-04-27] MEDS ORDERED: SODIUM CHLORIDE 0.9% 1,000 ML IV SCH (07:23)
[2017-04-27] MEDS ORDERED: MIDAZOLAM 1 MG/ML, 2ML IV PRN (07:30)
[2017-04-27] MEDS ORDERED: ACETAMINOPHEN 325 MG TABLET PO PRN (07:30)
[2017-04-27] MEDS ORDERED: MEPERIDINE/PF 25MG/0.5ML IVPush PRN (07:30)
[2017-04-27] MEDS ORDERED: CARV-39 PO (07:30)
[2017-04-27] MEDS ORDERED: DIAZEPAM 5 MG/ML, 2ML IVPush PRN (07:30)
[2017-04-27] MEDS ORDERED: ALBUTEROL/IPRATROPIUM 2.5MG/0.5MG, 3 ML NPPB PRN (07:30)
[2017-04-27] MEDS ORDERED: HYDROmorphone 1 MG/ML, 1ML IV PRN (07:30)
[2017-04-27] MEDS ORDERED: MYCO500T3 PO (07:30)
[2017-04-27] MEDS ORDERED: PRED10TA PO (07:30)
[2017-04-27] MEDS ORDERED: hydrALAzine 20 MG/ML, 1ML IV PRN (07:30)
[2017-04-27] MEDS ORDERED: ATOR20TA9 PO (07:30)
[2017-04-27] MEDS ORDERED: ERGO500017 PO (07:30)
[2017-04-27] MEDS ORDERED: LIDOCAINE 1%, 2ML SQ PRN (07:30)
[2017-04-27] MEDS ORDERED: LORazepam 2 MG/ML, 1ML IVPush PRN (07:30)
[2017-04-27] MEDS ORDERED: ONDANSETRON 2MG/ML, 2ML IVPush PRN (07:30)
[2017-04-27] MEDS ORDERED: PROMETHAZINE 25 MG/ML, 1ML IV PRN (07:30)
[2017-04-27] MEDS ORDERED: CALC0.5C9 PO (07:30)
[2017-04-27] MEDS ORDERED: LOSA50TA6 PO (07:30)
[2017-04-27] MEDS ORDERED: OXYcodone 5 MG/5 ML ORAL.SOL UDC PO PRN (07:30)
[2017-04-27] MEDS ORDERED: LABETALOL 5MG/ML, 20ML IV PRN (07:30)
[2017-04-27] MEDS ORDERED: SUCCINYLCHOLINE 20 MG/ML, 10ML ONE (07:36)
[2017-04-27] MEDS ORDERED: ACETAMINOPHEN 650 MG/20.3 ML UDC ONE (08:39)
[2017-04-27] MEDS ORDERED: OXYcodone 5 MG/5 ML ORAL.SOL UDC ONE (08:40)
[2017-04-27] MEDS: FENTANYL PF 100 MCG/2ML IV PRN ×2 (08:43→08:58)
[2017-04-27] MEDS ORDERED: HEPARIN 5,000 UNITS/ML, 1ML ONE (09:13)
[2017-04-27] MEDS ORDERED: HEPARIN 1,000 UNITS/ML, 10ML PERMACATH ONE (09:30)
== END 2017-04-27 10:50 | disposition home or self-care (01) ==
LOC: OUT 06:29
PROVIDERS: ATTEND Surgery Vascular Surgery
DX: I12.0 Hypertensive chronic kidney disease with stage 5 chronic kidney disease or end stage renal disease (principal); N18.6 End stage renal disease; E78.5 Hyperlipidemia, unspecified; D63.8 Anemia in other chronic diseases classified elsewhere
CPT/HCPCS: 36415; 49324; 80047; 84703; 93005; C1750; J0330; J0690; J1100; J1644; J2250; J2405; J2704; J3010; J3490

== ENCOUNTER 2017-04-30 10:29 | Emergency (ER) | payer MEDICAID ==
[~2017-04-30] VITALS: Ht 160 cm; Wt 46.2 kg
[~2017-04-30 10:29] MED LIST changes: +CALC0.5C9 PO; +CARV-39 PO; +LOSA50TA6 PO; +MYCO500T3 PO; +PRED10TA PO
[2017-04-30] MEDS ORDERED: PLEASE ENTER HEIGHT AND WEIGHT MC SCH (11:00)
[2017-04-30] MEDS ORDERED: SODIUM CHLORIDE 0.9% 1,000ML IVBOLUS ONE (11:00)
[2017-04-30] MEDS ORDERED: SODIUM CHLORIDE FLUSH 10ML SYR IVF ONE (11:00)
[2017-04-30] MEDS ORDERED: PANT40TA3 PO (11:16)
[2017-04-30] MEDS ORDERED: SEVE800T8 PO (11:16)
[2017-04-30] MEDS ORDERED: ONDA4TAB7 PO (11:16)
[2017-04-30 11:32] LABS: BASOPHILS # (AUTO) 0.04 x10^3/uL (0-0.1); BASOPHILS % (AUTO) 0 % (0-1); EOSINOPHILS # (AUTO) 0.02 x10^3/uL (0-0.4); EOSINOPHILS % (AUTO) 0 % (1-7); LYMPHOCYTES # (AUTO) 0.76 x10^3/uL (1-3.4); LYMPHOCYTES % (AUTO) 7 % (22-44); MD NO; MEAN CORPUSCULAR HGB CONC 31.6 g/dL (32.4-35.8); MEAN CORPUSCULAR VOLUME 104.5 fL (80-100); MEAN PLATELET VOLUME 8.3 fL (7.4-10.4); MONOCYTES % (AUTO) 5 % (2-9); NEUTROPHILS # (AUTO) 9.03 x10^3/uL (1.8-6.8); NEUTROPHILS % (AUTO) 87 % (42-75); PLATELET COUNT 402 x10^3/uL (130-400); RED CELL DISTRIBUTION WIDTH 15.9 % (9.6-15.2)
[2017-04-30 11:42] LABS: ANION GAP 9 mmol/L (5-15); CALCIUM 8.8 mg/dL (8.5-10.1); CHLORIDE 96 mmol/L (98-107); CREATININE 4.82 mg/dL (0.55-1.02)
[2017-04-30 13:42] VITALS: BP 125/81
[2017-05-01] MEDS ORDERED: CARV25TA12 PO (20:32)
[2017-05-01] MEDS ORDERED: CARV-39 PO (21:54)
== END 2017-04-30 13:44 | disposition home or self-care (01) ==
LOC: ED 11:02
DX: R10.30 Lower abdominal pain, unspecified (principal); R42 Dizziness and giddiness; I10 Essential (primary) hypertension; M32.9 Systemic lupus erythematosus, unspecified; Z99.2 Dependence on renal dialysis
CPT/HCPCS: 36415; 74176; 80048; 82040; 84703; 85025; 96360; 99285; J7030

== ENCOUNTER 2017-05-01 17:37 | Inpatient (IN) | payer MEDICAID ==
[~2017-05-01] VITALS: Ht 160 cm; Wt 50.9 kg
[~2017-05-01 17:37] MED LIST changes: +ONDA4TAB7 PO; +PANT40TA3 PO; +SEVE800T8 PO
[2017-05-01] MEDS ORDERED: MORPHINE SULFATE 4 MG/ML, 1ML ONE (18:49)
[2017-05-01] MEDS ORDERED: ONDANSETRON 2MG/ML, 2ML ONE (18:49)
[2017-05-01] MEDS ORDERED: ASPIRIN 81 MG TABLET CHEW ONE (18:49)
[2017-05-01] MEDS ORDERED: ASPIRIN 81 MG TABLET CHEW PO ONE (19:00)
[2017-05-01] MEDS ORDERED: ONDANSETRON 2MG/ML, 2ML IVPush ONE (19:00)
[2017-05-01] MEDS ORDERED: MORPHINE SULFATE 4 MG/ML, 1ML IVPush PRN (19:00)
[2017-05-01 19:56] LABS: BASOPHILS % (AUTO) 0 % (0-1); EOSINOPHILS # (AUTO) 0.01 x10^3/uL (0-0.4); EOSINOPHILS % (AUTO) 0 % (1-7); HCT (SEDRATE) 33.2 % (34.6-47.8); LYMPHOCYTES # (AUTO) 0.51 x10^3/uL (1-3.4); LYMPHOCYTES % (AUTO) 6 % (22-44); MD NO; MEAN CORPUSCULAR HEMOGLOBIN 32.9 pg (27.0-34.8); MEAN CORPUSCULAR HGB CONC 31.5 g/dL (32.4-35.8); MEAN CORPUSCULAR VOLUME 104.6 fL (80-100); MEAN PLATELET VOLUME 8.5 fL (7.4-10.4); MONOCYTES # (AUTO) 0.56 x10^3/uL (0.2-0.8); MONOCYTES % (AUTO) 6 % (2-9); NEUTROPHILS # (AUTO) 7.89 x10^3/uL (1.8-6.8); NEUTROPHILS % (AUTO) 88 % (42-75); PLATELET COUNT 391 x10^3/uL (130-400); RED BLOOD COUNT 3.17 x10^6/uL (3.82-5.3); RED CELL DISTRIBUTION WIDTH 15.6 % (9.6-15.2)
[2017-05-01 20:06] LABS: ALBUMIN 3.4 g/dL (3.4-5.0); ANION GAP 12 mmol/L (5-15); CALCIUM 9.1 mg/dL (8.5-10.1); CHLORIDE 96 mmol/L (98-107); CREATININE 9.62 mg/dL (0.55-1.02)
[2017-05-01 20:07] LABS: ALANINE AMINOTRANSFERASE < 6 U/L (12-78)
[2017-05-01 20:10] LABS: ALKALINE PHOSPHATASE 56 U/L (45-117); BILIRUBIN,TOTAL 0.4 mg/dL (0.2-1.0); TOTAL PROTEIN 8.2 g/dL (6.4-8.2); TROPONIN I < 0.015 ng/mL (0.000-0.045)
[2017-05-01] MEDS ORDERED: CARV25TA12 PO (20:32)
[2017-05-01] MEDS ORDERED: ATORVASTATIN 20 MG TABLET PO STA (20:38)
[2017-05-01] MEDS ORDERED: MYCOPHENOLATE MOFETIL 200 MG/ML SUSP PO SCH (21:00)
[2017-05-01] MEDS ORDERED: CALCIUM CHLORIDE 13.6 MEQ in SODIUM CHLORIDE 0.9% 100 ML IV ONE (21:00)
[2017-05-01] MEDS ORDERED: CARVEDILOL 25 MG TABLET PO SCH ×2 (21:00→21:30)
[2017-05-01 21:05] LABS: SEDIMENTATION RATE 111 mm/hr (0-20)
[2017-05-01] MEDS ORDERED: SODIUM CHLORIDE 0.9% 1,000 ML IV SCH (21:14)
[2017-05-01] MEDS: LOSARTAN 50MG TABLET PO SCH (21:30)
[2017-05-01] MEDS ORDERED: ONDANSETRON 2MG/ML, 2ML IVPush PRN (21:30)
[2017-05-01] MEDS ORDERED: CARV-39 PO (21:54)
[2017-05-02 00:49] VITALS: BP 127/87
[2017-05-02] MEDS: morphine SULFATE 10 MG/ML, 1ML IVPush PRN ×4 (00:52→19:21)
[2017-05-02] MEDS: ATORVASTATIN 20 MG TABLET PO SCH ×2 (01:00→20:21)
[2017-05-02] MEDS: SEVELAMER 800MG TABLET PO SCH ×4 (01:00→20:21)
[2017-05-02] MEDS: HEPARIN 5,000 UNITS/ML, 1ML SQ SCH ×3 (01:21→16:34)
[2017-05-02 01:53] VITALS: BP 127/87
[2017-05-02 04:49] LABS: ANION GAP 11 mmol/L (5-15); CALCIUM 9.2 mg/dL (8.5-10.1); CHLORIDE 97 mmol/L (98-107); CREATININE 6.47 mg/dL (0.55-1.02)
[2017-05-02 04:53] LABS: TROPONIN I < 0.015 ng/mL (0.000-0.045)
[2017-05-02 08:00] VITALS: BP 113/80
[2017-05-02] MEDS ORDERED: FAMOTIDINE 20 MG TABLET PO SCH (09:00)
[2017-05-02] MEDS: CARVEDILOL 25 MG TABLET PO SCH ×2 (09:00→20:20)
[2017-05-02] MEDS: LOSARTAN 50MG TABLET PO SCH ×3 (09:04→20:24)
[2017-05-02] MEDS ORDERED: PHARMACOKINETIC MONITORING MC PRN (11:00)
[2017-05-02] MEDS ORDERED: VANCOMYCIN PER PHARMACY MC PRN (11:00)
[2017-05-02] MEDS ORDERED: VANCOMYCIN PMX 1GM/200ML 200 ML IV ONE (11:00)
[2017-05-02 11:45] LABS: HCT (SEDRATE) 29.2 % (34.6-47.8)
[2017-05-02 12:03] VITALS: BP 96/62
[2017-05-02] MEDS: ACETAMINOPHEN 325 MG TABLET PO PRN ×2 (13:01→20:27)
[2017-05-02] MEDS: CEFTRIAXONE PMX 1GM/50ML 50 ML IV SCH (13:22)
[2017-05-02] MEDS: LACTOBACILLUS CHEW TABLET PO PRN (13:24)
[2017-05-02] MEDS: VANCOMYCIN PMX 1GM/200ML 200 ML IV ONE ×2 (14:12→16:36)
[2017-05-02 17:14] LABS: CLOSTRIDIUM DIFFICILE ANTIGEN NEGATIVE; CLOSTRIDIUM DIFFICILE TOXIN NEGATIVE (Negative)
[2017-05-02 19:08] VITALS: BP 123/87
[2017-05-02] MEDS: FAMOTIDINE 20 MG TABLET PO SCH (20:21)
[2017-05-02] MEDS: HYDROcodone/APAP 5/325 TABLET PO PRN (22:41)
[2017-05-03] MEDS: HEPARIN 5,000 UNITS/ML, 1ML SQ SCH ×3 (01:01→21:54)
[2017-05-03 04:41] VITALS: BP 135/92
[2017-05-03] MEDS: morphine SULFATE 10 MG/ML, 1ML IVPush PRN ×3 (04:49→20:26)
[2017-05-03] MEDS: LACTOBACILLUS CHEW TABLET PO PRN (04:53)
[2017-05-03 05:16] LABS: ALBUMIN 2.6 g/dL (3.4-5.0); ANION GAP 12 mmol/L (5-15); CALCIUM 9.2 mg/dL (8.5-10.1); CHLORIDE 96 mmol/L (98-107)
[2017-05-03 05:20] LABS: ALKALINE PHOSPHATASE 43 U/L (45-117); BILIRUBIN,TOTAL 0.3 mg/dL (0.2-1.0); CREATININE 9.59 mg/dL (0.55-1.02); TOTAL PROTEIN 7.2 g/dL (6.4-8.2)
[2017-05-03 05:21] LABS: BASOPHILS # (AUTO) 0.03 x10^3/uL (0-0.1); BASOPHILS % (AUTO) 1 % (0-1); EOSINOPHILS # (AUTO) 0.02 x10^3/uL (0-0.4); EOSINOPHILS % (AUTO) 0 % (1-7); LYMPHOCYTES # (AUTO) 0.82 x10^3/uL (1-3.4); LYMPHOCYTES % (AUTO) 16 % (22-44); MD NO; MEAN CORPUSCULAR HEMOGLOBIN 33.1 pg (27.0-34.8); MEAN CORPUSCULAR HGB CONC 31.6 g/dL (32.4-35.8); MEAN CORPUSCULAR VOLUME 104.8 fL (80-100); MEAN PLATELET VOLUME 8.7 fL (7.4-10.4); MONOCYTES # (AUTO) 0.59 x10^3/uL (0.2-0.8); MONOCYTES % (AUTO) 12 % (2-9); NEUTROPHILS # (AUTO) 3.65 x10^3/uL (1.8-6.8); NEUTROPHILS % (AUTO) 71 % (42-75); PLATELET COUNT 330 x10^3/uL (130-400); RED CELL DISTRIBUTION WIDTH 15.9 % (9.6-15.2)
[2017-05-03 05:27] LABS: ALANINE AMINOTRANSFERASE < 6 U/L (12-78)
[2017-05-03 06:53] VITALS: BP 136/94
[2017-05-03] MEDS: HYDROcodone/APAP 5/325 TABLET PO PRN (07:35)
[2017-05-03] MEDS: LOSARTAN 50MG TABLET PO SCH ×2 (09:00→21:53)
[2017-05-03] MEDS ORDERED: SEVELAMER 800MG TABLET PO SCH (09:00)
[2017-05-03] MEDS: CARVEDILOL 25 MG TABLET PO SCH ×2 (09:11→21:53)
[2017-05-03] MEDS: ACETAMINOPHEN 325 MG TABLET PO PRN (12:37)
[2017-05-03 13:02] VITALS: BP 135/93
[2017-05-03] MEDS ORDERED: OMNIPAQUE 350 MG/ML, 100ML BOTTLE ONE (14:00)
[2017-05-03] MEDS ORDERED: VANCOMYCIN PMX 1GM/200ML 200 ML IV ONE (15:00)
[2017-05-03] MEDS ORDERED: SEVELAMER 2.4 GM POWD.PACK PO SCH (16:00)
[2017-05-03] MEDS: CEFTRIAXONE PMX 1GM/50ML 50 ML IV SCH (21:24)
[2017-05-03 21:42] VITALS: BP 146/99
[2017-05-03] MEDS: ATORVASTATIN 20 MG TABLET PO SCH (21:53)
[2017-05-03] MEDS: FAMOTIDINE 20 MG TABLET PO SCH (21:54)
[2017-05-03] MEDS: SEVELAMER 2.4 GM POWD.PACK PO SCH (22:42)
[2017-05-04 01:43] LABS: CULTURE INDICATED? YES; MICROSCOPIC INDICATED
[2017-05-04 02:59] VITALS: BP 124/72
[2017-05-04 05:00] LABS: BASOPHILS # (AUTO) 0.02 x10^3/uL (0-0.1); BASOPHILS % (AUTO) 0 % (0-1); EOSINOPHILS # (AUTO) 0.01 x10^3/uL (0-0.4); EOSINOPHILS % (AUTO) 0 % (1-7); LYMPHOCYTES # (AUTO) 0.51 x10^3/uL (1-3.4); LYMPHOCYTES % (AUTO) 11 % (22-44); MD NO; MEAN CORPUSCULAR HEMOGLOBIN 32.9 pg (27.0-34.8); MEAN CORPUSCULAR HGB CONC 31.9 g/dL (32.4-35.8); MEAN CORPUSCULAR VOLUME 103.2 fL (80-100); MEAN PLATELET VOLUME 8.4 fL (7.4-10.4); MONOCYTES # (AUTO) 0.45 x10^3/uL (0.2-0.8); MONOCYTES % (AUTO) 10 % (2-9); NEUTROPHILS # (AUTO) 3.62 x10^3/uL (1.8-6.8); NEUTROPHILS % (AUTO) 79 % (42-75); PLATELET COUNT 388 x10^3/uL (130-400); RED BLOOD COUNT 2.68 x10^6/uL (3.82-5.3); RED CELL DISTRIBUTION WIDTH 15.6 % (9.6-15.2)
[2017-05-04 05:16] LABS: ANION GAP 8 mmol/L (5-15); CALCIUM 9.2 mg/dL (8.5-10.1); CHLORIDE 93 mmol/L (98-107)
[2017-05-04 05:18] LABS: CREATININE 5.16 mg/dL (0.55-1.02)
[2017-05-04] MEDS: HEPARIN 5,000 UNITS/ML, 1ML SQ SCH ×3 (05:32→22:24)
[2017-05-04 07:13] VITALS: BP 121/83
[2017-05-04] MEDS: HYDROcodone/APAP 5/325 TABLET PO PRN ×3 (07:20→19:57)
[2017-05-04] MEDS: SEVELAMER 2.4 GM POWD.PACK PO SCH ×3 (09:39→16:46)
[2017-05-04] MEDS: CARVEDILOL 25 MG TABLET PO SCH ×2 (09:39→22:07)
[2017-05-04] MEDS: LOSARTAN 50MG TABLET PO SCH ×2 (09:40→21:00)
[2017-05-04 13:54] VITALS: BP 114/77
[2017-05-04 20:00] VITALS: BP 127/88
[2017-05-04] MEDS: CEFTRIAXONE PMX 1GM/50ML 50 ML IV SCH (22:06)
[2017-05-04] MEDS: ATORVASTATIN 20 MG TABLET PO SCH (22:10)
[2017-05-04] MEDS: DOCUSATE 100 MG CAPSULE PO PRN (22:11)
[2017-05-04] MEDS: FAMOTIDINE 20 MG TABLET PO SCH (22:11)
[2017-05-05 02:00] VITALS: BP 133/94
[2017-05-05] MEDS: HYDROcodone/APAP 5/325 TABLET PO PRN ×4 (02:45→16:46)
[2017-05-05 04:44] LABS: ALBUMIN 2.4 g/dL (3.4-5.0); ANION GAP 9 mmol/L (5-15); CALCIUM 9.5 mg/dL (8.5-10.1); CHLORIDE 92 mmol/L (98-107); CREATININE 8.32 mg/dL (0.55-1.02)
[2017-05-05 05:16] LABS: BASOPHILS # (AUTO) 0.01 x10^3/uL (0-0.1); BASOPHILS % (AUTO) 0 % (0-1); EOSINOPHILS # (AUTO) 0.02 x10^3/uL (0-0.4); EOSINOPHILS % (AUTO) 0 % (1-7); LYMPHOCYTES # (AUTO) 0.74 x10^3/uL (1-3.4); LYMPHOCYTES % (AUTO) 12 % (22-44); MD SCAN; MEAN CORPUSCULAR HEMOGLOBIN 33.7 pg (27.0-34.8); MEAN CORPUSCULAR HGB CONC 32.4 g/dL (32.4-35.8); MEAN CORPUSCULAR VOLUME 103.8 fL (80-100); MEAN PLATELET VOLUME 9.1 fL (7.4-10.4); MONOCYTES # (AUTO) 0.57 x10^3/uL (0.2-0.8); MONOCYTES % (AUTO) 10 % (2-9); NEUTROPHILS # (AUTO) 4.65 x10^3/uL (1.8-6.8); NEUTROPHILS % (AUTO) 78 % (42-75); PLATELET COUNT 395 x10^3/uL (130-400); RED BLOOD COUNT 2.74 x10^6/uL (3.82-5.3); RED CELL DISTRIBUTION WIDTH 15.8 % (9.6-15.2)
[2017-05-05] MEDS: HEPARIN 5,000 UNITS/ML, 1ML SQ SCH ×3 (06:17→21:45)
[2017-05-05 06:52] VITALS: BP 127/78
[2017-05-05] MEDS: CARVEDILOL 25 MG TABLET PO SCH ×2 (08:44→21:00)
[2017-05-05] MEDS: SEVELAMER 2.4 GM POWD.PACK PO SCH ×3 (08:45→16:51)
[2017-05-05] MEDS: morphine SULFATE 10 MG/ML, 1ML IVPush PRN (08:54)
[2017-05-05] MEDS ORDERED: CALC0.5C9 PO (08:57)
[2017-05-05] MEDS: LOSARTAN 50MG TABLET PO SCH ×2 (09:00→21:00)
[2017-05-05] MEDS ORDERED: ERGOCALCIFEROL 50,000 UNIT CAPSULE PO SCH (09:30)
[2017-05-05] MEDS: CALCITRIOL 0.5 MCG CAPSULE PO SCH (16:51)
[2017-05-05] MEDS: DOCUSATE 100 MG CAPSULE PO PRN (16:51)
[2017-05-05 19:25] VITALS: BP 102/69
[2017-05-05] MEDS: POLYETHYLENE GLYCOL 17 GM PACKET PO PRN (20:07)
[2017-05-05] MEDS: FAMOTIDINE 20 MG TABLET PO SCH (21:16)
[2017-05-05] MEDS: ATORVASTATIN 20 MG TABLET PO SCH (21:16)
[2017-05-05] MEDS: CEFTRIAXONE PMX 1GM/50ML 50 ML IV SCH (21:25)
[2017-05-06 01:21] VITALS: BP 108/69
[2017-05-06] MEDS: HEPARIN 5,000 UNITS/ML, 1ML SQ SCH ×3 (06:10→21:52)
[2017-05-06 06:50] VITALS: BP 98/65
[2017-05-06] MEDS: SEVELAMER 2.4 GM POWD.PACK PO SCH ×3 (08:45→16:39)
[2017-05-06] MEDS: CARVEDILOL 25 MG TABLET PO SCH ×2 (08:46→20:44)
[2017-05-06] MEDS: DOCUSATE 100 MG CAPSULE PO PRN (08:46)
[2017-05-06] MEDS: LOSARTAN 50MG TABLET PO SCH ×2 (08:47→20:43)
[2017-05-06] MEDS ORDERED: GENTAMICIN CRM 0.1%, 30GM TP PRN (10:00)
[2017-05-06 19:08] VITALS: BP 130/90
[2017-05-06 20:42] VITALS: BP 130/89
[2017-05-06] MEDS: CEFTRIAXONE PMX 1GM/50ML 50 ML IV SCH (20:43)
[2017-05-06] MEDS: ATORVASTATIN 20 MG TABLET PO SCH (20:44)
[2017-05-06] MEDS: FAMOTIDINE 20 MG TABLET PO SCH (20:44)
[2017-05-06] MEDS: POLYETHYLENE GLYCOL 17 GM PACKET PO PRN (21:51)
[2017-05-06] MEDS: HYDROcodone/APAP 5/325 TABLET PO PRN (22:47)
[2017-05-07 01:31] VITALS: BP 123/82
[2017-05-07] MEDS: HEPARIN 5,000 UNITS/ML, 1ML SQ SCH ×2 (06:34→14:36)
[2017-05-07 07:50] VITALS: BP 127/82
[2017-05-07] MEDS: SEVELAMER 2.4 GM POWD.PACK PO SCH ×3 (08:49→20:08)
[2017-05-07] MEDS: CALCITRIOL 0.5 MCG CAPSULE PO SCH (08:51)
[2017-05-07] MEDS ORDERED: GENT15CR6 TP (11:58)
[2017-05-07] MEDS ORDERED: PRED10TA PO (11:58)
[2017-05-07] MEDS ORDERED: CEFD300C37 PO (11:58)
[2017-05-07] MEDS ORDERED: DOXY100T10 PO (11:58)
[2017-05-07 12:38] VITALS: BP 120/83
[2017-05-07 19:50] VITALS: BP 139/108
[2017-05-07] MEDS: ATORVASTATIN 20 MG TABLET PO SCH (20:07)
[2017-05-07] MEDS: FAMOTIDINE 20 MG TABLET PO SCH (20:09)
== END 2017-05-07 21:01 | disposition home or self-care (01) | DRG 545 ==
LOC: ED 18:32 → EDIP 20:53 → SUATTDRO 21:07 → 5SO 23:39
PROVIDERS: ADMIT Family Medicine; ATTEND Family Medicine
PROC: 5A1D70Z Performance of Urinary Filtration, Intermittent, Less than 6 Hours Per Day (ICD-10-PCS; 2017-05-01)
PROC: 5A1D70Z Performance of Urinary Filtration, Intermittent, Less than 6 Hours Per Day (ICD-10-PCS; principal; 2017-05-03)
PROC: 5A1D70Z Performance of Urinary Filtration, Intermittent, Less than 6 Hours Per Day (ICD-10-PCS; 2017-05-05)
PROC: 5A1D70Z Performance of Urinary Filtration, Intermittent, Less than 6 Hours Per Day (ICD-10-PCS; 2017-05-07)
DX: M32.14 Glomerular disease in systemic lupus erythematosus (principal); E43 Unspecified severe protein-calorie malnutrition; I13.2 Hypertensive heart and chronic kidney disease with heart failure and with stage 5 chronic kidney disease, or end stage renal disease; J18.9 Pneumonia, unspecified organism; N18.6 End stage renal disease; I50.22 Chronic systolic (congestive) heart failure; E87.1 Hypo-osmolality and hyponatremia; Z68.1 Body mass index [BMI] 19.9 or less, adult; N39.0 Urinary tract infection, site not specified; E87.5 Hyperkalemia; D63.1 Anemia in chronic kidney disease; E78.5 Hyperlipidemia, unspecified; M94.0 Chondrocostal junction syndrome [Tietze]; N25.0 Renal osteodystrophy; Z79.82 Long term (current) use of aspirin; Z84.1 Family history of disorders of kidney and ureter; Z99.2 Dependence on renal dialysis
CPT/HCPCS: 36415; 71045; 71275; 80048; 80053; 80069; 80202; 81001; 83605; 83735; 84100; 84484; 85025; 85651; 86140; 86705; 86706; 87040; 87070; 87086; 87205; 87324; 87340; 89051; 93005; 93306; 96374; 96375; J0696; J1644; J2405; J3370; Q9967; J2270; J7030; J7512; J7517

== ENCOUNTER 2017-08-12 08:21 | Emergency (ER) | payer MEDICARE ==
[~2017-08-12] VITALS: Ht 160 cm; Wt 50.8 kg
[~2017-08-12 08:21] MED LIST changes: +CARV25TA12 PO; +DOXY100T10 PO; +GENT15CR6 TP
[2017-08-12] MEDS ORDERED: KETOROLAC 30 MG/1 ML IVPush ONE (09:00)
[2017-08-12 09:37] LABS: BASOPHILS # (AUTO) 0.01 x10^3/uL (0-0.1); BASOPHILS % (AUTO) 0 % (0-1); EOSINOPHILS # (AUTO) 0.01 x10^3/uL (0-0.4); EOSINOPHILS % (AUTO) 0 % (1-7); LYMPHOCYTES # (AUTO) 0.29 x10^3/uL (1-3.4); LYMPHOCYTES % (AUTO) 4 % (22-44); MD NO; MEAN CORPUSCULAR HEMOGLOBIN 31.8 pg (27.0-34.8); MEAN CORPUSCULAR HGB CONC 31.9 g/dL (32.4-35.8); MEAN CORPUSCULAR VOLUME 99.5 fL (80-100); MEAN PLATELET VOLUME 6.8 fL (7.4-10.4); MONOCYTES # (AUTO) 0.42 x10^3/uL (0.2-0.8); MONOCYTES % (AUTO) 5 % (2-9); NEUTROPHILS # (AUTO) 7.35 x10^3/uL (1.8-6.8); NEUTROPHILS % (AUTO) 91 % (42-75); PLATELET COUNT 453 x10^3/uL (130-400); RED BLOOD COUNT 3.06 x10^6/uL (3.82-5.3); RED CELL DISTRIBUTION WIDTH 14.3 % (9.6-15.2)
[2017-08-12 09:50] LABS: ALBUMIN 2.6 g/dL (3.4-5.0); ANION GAP 14 mmol/L (5-15); CHLORIDE 83 mmol/L (98-107)
[2017-08-12 09:54] LABS: TROPONIN I < 0.015 ng/mL (0.000-0.045)
[2017-08-12] MEDS ORDERED: KETOROLAC 30 MG/1 ML ONE (10:01)
[2017-08-12] MEDS ORDERED: VALS160T3 PO (10:11)
[2017-08-12] MEDS ORDERED: BLOOD PRESSURE MED (10:11)
[2017-08-12] MEDS ORDERED: KETOROLAC 30 MG/1 ML IM/IV ONE (11:00)
[2017-08-12] MEDS ORDERED: OMNIPAQUE 350 MG/ML, 100ML BOTTLE ONE (12:00)
[2017-08-12 12:22] VITALS: BP 110/71
== END 2017-08-12 12:51 | disposition home or self-care (01) ==
LOC: ED 08:57
DX: J15.9 Unspecified bacterial pneumonia (principal); N18.6 End stage renal disease; I50.9 Heart failure, unspecified; I13.2 Hypertensive heart and chronic kidney disease with heart failure and with stage 5 chronic kidney disease, or end stage renal disease; M32.9 Systemic lupus erythematosus, unspecified; Z99.2 Dependence on renal dialysis
CPT/HCPCS: 36415; 71045; 71275; 80048; 82040; 83880; 84484; 85025; 85379; 93005; 96372; 99285; J1885; Q9967

== ENCOUNTER 2017-08-16 09:28 | Inpatient (IN) | payer MEDICARE ==
[~2017-08-16] VITALS: Ht 160 cm; Wt 57.8 kg
[~2017-08-16 09:28] MED LIST changes: +BLOOD PRESSURE MED; +VALS160T3 PO
[2017-08-16] MEDS ORDERED: AMLO10TA2 PO (10:13)
[2017-08-16 10:29] LABS: BASOPHILS % (AUTO) 0 % (0-1); EOSINOPHILS # (AUTO) 0.01 x10^3/uL (0-0.4); EOSINOPHILS % (AUTO) 0 % (1-7); LYMPHOCYTES # (AUTO) 0.24 x10^3/uL (1-3.4); LYMPHOCYTES % (AUTO) 2 % (22-44); MD NO; MEAN CORPUSCULAR HEMOGLOBIN 32.6 pg (27.0-34.8); MEAN CORPUSCULAR HGB CONC 32.4 g/dL (32.4-35.8); MEAN CORPUSCULAR VOLUME 100.7 fL (80-100); MEAN PLATELET VOLUME 6.9 fL (7.4-10.4); MONOCYTES # (AUTO) 0.39 x10^3/uL (0.2-0.8); MONOCYTES % (AUTO) 4 % (2-9); NEUTROPHILS # (AUTO) 9.71 x10^3/uL (1.8-6.8); NEUTROPHILS % (AUTO) 94 % (42-75); PLATELET COUNT 480 x10^3/uL (130-400); RED BLOOD COUNT 3.32 x10^6/uL (3.82-5.3); RED CELL DISTRIBUTION WIDTH 14.3 % (9.6-15.2)
[2017-08-16 10:41] LABS: ALANINE AMINOTRANSFERASE 11 U/L (12-78); ALBUMIN 2.5 g/dL (3.4-5.0); ANION GAP 14 mmol/L (5-15); CALCIUM 8.5 mg/dL (8.5-10.1); CHLORIDE 87 mmol/L (98-107)
[2017-08-16 10:45] LABS: ALKALINE PHOSPHATASE 58 U/L (45-117); BILIRUBIN,TOTAL 0.3 mg/dL (0.2-1.0); TOTAL PROTEIN 7.1 g/dL (6.4-8.2); TROPONIN I < 0.015 ng/mL (0.000-0.045)
[2017-08-16] MEDS ORDERED: ACETAMINOPHEN 500 MG TABLET PO ONE (11:00)
[2017-08-16] MEDS ORDERED: PIPERACILLIN/TAZO/PMX 3.375GM 50 ML IVPB ONE (11:00)
[2017-08-16] MEDS ORDERED: VANCOMYCIN PER PHARMACY IV ONE (11:00)
[2017-08-16] MEDS ORDERED: ACETAMINOPHEN 500 MG TABLET ONE (11:10)
[2017-08-16] MEDS ORDERED: PIPERACILLIN/TAZO/PMX 3.375GM 50 ML ONE (11:10)
[2017-08-16] MEDS ORDERED: VANCOMYCIN PMX 1GM/200ML 200 ML IV ONE ×2 (11:30→14:30)
[2017-08-16] MEDS: HEPARIN 5,000 UNITS/ML, 1ML SQ SCH ×2 (14:30→20:39)
[2017-08-16] MEDS ORDERED: GENTAMICIN CRM 0.1%, 30GM TP PRN (14:30)
[2017-08-16] MEDS ORDERED: ONDANSETRON 2MG/ML, 2ML IVPush PRN (14:30)
[2017-08-16] MEDS ORDERED: PROMETHAZINE 25 MG/ML, 1ML IM PRN (14:30)
[2017-08-16] MEDS ORDERED: morphine SULFATE 10 MG/ML, 1ML IVPush PRN (14:30)
[2017-08-16] MEDS ORDERED: BISACODYL 10 MG SUPP PR PRN (14:30)
[2017-08-16] MEDS ORDERED: ONDANSETRON 4 MG TABLET PO PRN (14:30)
[2017-08-16] MEDS ORDERED: ACETAMINOPHEN 325 MG TABLET PO PRN (14:30)
[2017-08-16] MEDS ORDERED: hydrALAzine 20 MG/ML, 1ML IVPush PRN (14:30)
[2017-08-16] MEDS ORDERED: DOCUSATE 100 MG CAPSULE PO PRN (14:30)
[2017-08-16] MEDS ORDERED: POLYETHYLENE GLYCOL 17 GM PACKET PO PRN (14:30)
[2017-08-16] MEDS ORDERED: VANCOMYCIN PER PHARMACY MC PRN (14:30)
[2017-08-16] MEDS ORDERED: PHARMACOKINETIC MONITORING MC PRN (15:00)
[2017-08-16] MEDS ORDERED: PHARMACOKINETIC CONSULTATION MC ONE (15:00)
[2017-08-16 15:02] LABS: FREE T4 (FREE THYROXINE) 1.1 ng/dL (0.76-1.46); THYROID STIMULATING HORMONE 1.74 mIU/L (0.358-3.740)
[2017-08-16 15:20] VITALS: BP 115/80
[2017-08-16] MEDS ORDERED: SEVELAMER CARBONATE 800MG TAB PO SCH (16:00)
[2017-08-16 19:52] VITALS: BP 131/93
[2017-08-16] MEDS ORDERED: GENTAMICIN CRM 0.1%, 30GM TP SCH (20:00)
[2017-08-16] MEDS ORDERED: PIPERACILLIN/TAZO 2.25 GM in SODIUM CHLORIDE 0.9% 50 ML IV SCH (20:00)
[2017-08-16] MEDS: GENTAMICIN OINT 0.1% 15GM TP SCH (20:10)
[2017-08-16] MEDS: SEVELAMER 2.4 GM POWD.PACK PO SCH (20:17)
[2017-08-16] MEDS: GUAIFENESIN 200 MG TABLET PO SCH (20:38)
[2017-08-16] MEDS: CARVEDILOL 25 MG TABLET PO SCH (20:38)
[2017-08-16] MEDS: ATORVASTATIN 20 MG TABLET PO SCH (20:39)
[2017-08-16] MEDS: PIPERACILLIN/TAZO/PMX 2.25GM 50 ML IV SCH (20:58)
[2017-08-17 01:46] VITALS: BP 107/72
[2017-08-17] MEDS: OXYcodone IR 5MG TABLET PO PRN (03:40)
[2017-08-17] MEDS: PIPERACILLIN/TAZO/PMX 2.25GM 50 ML IV SCH ×3 (04:53→20:16)
[2017-08-17] MEDS: HEPARIN 5,000 UNITS/ML, 1ML SQ SCH ×3 (04:59→20:16)
[2017-08-17 05:35] LABS: CHLORIDE 90 mmol/L (98-107)
[2017-08-17 05:43] LABS: ALANINE AMINOTRANSFERASE 10 U/L (12-78); ALBUMIN 2.2 g/dL (3.4-5.0); ALKALINE PHOSPHATASE 51 U/L (45-117); ANION GAP 14 mmol/L (5-15); BASOPHILS # (AUTO) 0.02 x10^3/uL (0-0.1); BASOPHILS % (AUTO) 0 % (0-1); BILIRUBIN,TOTAL 0.5 mg/dL (0.2-1.0); CHOL/HDL RATIO 2.2; CHOLESTEROL, TOTAL 114 mg/dL (140-239); EOSINOPHILS # (AUTO) 0.01 x10^3/uL (0-0.4); EOSINOPHILS % (AUTO) 0 % (1-7); HDL CHOL % 46 % (28-40); HDL CHOLESTEROL (DIRECT) 52 mg/dL (40-60); LDL CHOLESTEROL,CALCULATED 50 mg/dL (54-169); LYMPHOCYTES # (AUTO) 0.72 x10^3/uL (1-3.4); LYMPHOCYTES % (AUTO) 12 % (22-44); MD NO; MEAN CORPUSCULAR HEMOGLOBIN 32.4 pg (27.0-34.8); MEAN CORPUSCULAR HGB CONC 32.3 g/dL (32.4-35.8); MEAN CORPUSCULAR VOLUME 100.4 fL (80-100); MEAN PLATELET VOLUME 6.8 fL (7.4-10.4); MONOCYTES % (AUTO) 7 % (2-9); NEUTROPHILS # (AUTO) 4.87 x10^3/uL (1.8-6.8); NEUTROPHILS % (AUTO) 81 % (42-75); PLATELET COUNT 447 x10^3/uL (130-400); RED BLOOD COUNT 3.23 x10^6/uL (3.82-5.3); RED CELL DISTRIBUTION WIDTH 14.2 % (9.6-15.2); TOTAL PROTEIN 6.5 g/dL (6.4-8.2); TRIGLYCERIDES 59 mg/dL (50-200); VLDL CHOLESTEROL 12 mg/dL (0-25)
[2017-08-17 07:00] VITALS: BP 118/78
[2017-08-17] MEDS: GUAIFENESIN 200 MG TABLET PO SCH ×2 (08:15→20:16)
[2017-08-17] MEDS: SEVELAMER 2.4 GM POWD.PACK PO SCH ×3 (08:16→17:13)
[2017-08-17] MEDS: CARVEDILOL 25 MG TABLET PO SCH ×2 (08:16→20:16)
[2017-08-17] MEDS: VALSARTAN 160 MG TABLET PO SCH (08:16)
[2017-08-17] MEDS ORDERED: AMLODIPINE 5 MG TABLET PO SCH (09:00)
[2017-08-17] MEDS: CALCITRIOL 0.5 MCG CAPSULE PO SCH ×2 (09:05→20:18)
[2017-08-17] MEDS ORDERED: POTASSIUM CHLORIDE 20 MEQ TAB.ER.PRT PO ONE (10:00)
[2017-08-17] MEDS ORDERED: MAGNESIUM SULFATE PMX 2GM/50ML 50 ML IV ONE (10:00)
[2017-08-17] MEDS ORDERED: DARBEPOETIN 100 MCG/ML SQ SCH (10:00)
[2017-08-17] MEDS: GENTAMICIN OINT 0.1% 15GM TP SCH (10:30)
[2017-08-17 13:15] VITALS: BP 119/82
[2017-08-17 18:45] VITALS: BP 131/87
[2017-08-17] MEDS: AMLODIPINE 5 MG TABLET PO SCH (20:17)
[2017-08-17] MEDS: ATORVASTATIN 20 MG TABLET PO SCH (20:17)
[2017-08-18 01:23] VITALS: BP 107/72
[2017-08-18] MEDS: PIPERACILLIN/TAZO/PMX 2.25GM 50 ML IV SCH ×3 (04:52→22:01)
[2017-08-18] MEDS: HEPARIN 5,000 UNITS/ML, 1ML SQ SCH ×3 (05:00→22:01)
[2017-08-18 05:20] LABS: % IRON SATURATION 55 % (20-55); ALBUMIN 2.2 g/dL (3.4-5.0); ANION GAP 14 mmol/L (5-15); CALCIUM 9.1 mg/dL (8.5-10.1); CHLORIDE 90 mmol/L (98-107); IRON LEVEL 122 mcg/dL (50-170); TOTAL IRON BINDING CAPACITY 221 mcg/dL (250-450)
[2017-08-18 06:50] VITALS: BP 128/85
[2017-08-18] MEDS: POTASSIUM CHLORIDE 20 MEQ TAB.ER.PRT PO SCH ×3 (08:00→16:53)
[2017-08-18] MEDS: SEVELAMER 2.4 GM POWD.PACK PO SCH ×3 (08:23→16:53)
[2017-08-18] MEDS: VALSARTAN 160 MG TABLET PO SCH ×2 (08:24→22:22)
[2017-08-18] MEDS: GUAIFENESIN 200 MG TABLET PO SCH ×2 (08:24→20:22)
[2017-08-18] MEDS: CARVEDILOL 25 MG TABLET PO SCH ×2 (08:24→20:23)
[2017-08-18] MEDS: CALCITRIOL 0.5 MCG CAPSULE PO SCH (08:25)
[2017-08-18] MEDS ORDERED: CALCITRIOL 0.5 MCG CAPSULE PO SCH (09:00)
[2017-08-18] MEDS ORDERED: ERGO500017 PO (14:21)
[2017-08-18] MEDS ORDERED: CALC0.25 PO (14:21)
[2017-08-18 14:33] VITALS: BP 138/92
[2017-08-18] MEDS: ONDANSETRON ODT 4 MG PO PRN (18:05)
[2017-08-18 20:03] VITALS: BP 152/109
[2017-08-18] MEDS: AMLODIPINE 5 MG TABLET PO SCH (20:22)
[2017-08-18] MEDS: CALCITRIOL 0.25 MCG CAPSULE PO SCH (20:22)
[2017-08-18] MEDS: ATORVASTATIN 20 MG TABLET PO SCH (20:22)
[2017-08-18 23:19] VITALS: BP 126/86
[2017-08-19] VITALS (7 sets, daily range): BP systolic 129–156; BP diastolic 86–110
[2017-08-19] MEDS: OXYcodone IR 5MG TABLET PO PRN (01:56)
[2017-08-19] MEDS: HEPARIN 5,000 UNITS/ML, 1ML SQ SCH ×3 (06:05→22:06)
[2017-08-19] MEDS: PIPERACILLIN/TAZO/PMX 2.25GM 50 ML IV SCH ×3 (06:05→22:06)
[2017-08-19 06:07] LABS: ANION GAP 11 mmol/L (5-15); CALCIUM 8.8 mg/dL (8.5-10.1); CHLORIDE 90 mmol/L (98-107)
[2017-08-19 06:17] LABS: VANCOMYCIN,RANDOM < 0.8 mcg/mL
[2017-08-19] MEDS: GUAIFENESIN 200 MG TABLET PO SCH ×2 (08:19→20:42)
[2017-08-19] MEDS: SEVELAMER 2.4 GM POWD.PACK PO SCH ×4 (08:19→19:23)
[2017-08-19] MEDS: POTASSIUM CHLORIDE 20 MEQ TAB.ER.PRT PO SCH ×3 (08:20→16:23)
[2017-08-19] MEDS: CALCITRIOL 0.25 MCG CAPSULE PO SCH ×2 (08:20→20:42)
[2017-08-19] MEDS: VALSARTAN 160 MG TABLET PO SCH ×2 (08:20→20:51)
[2017-08-19] MEDS: CARVEDILOL 25 MG TABLET PO SCH ×2 (08:20→20:43)
[2017-08-19] MEDS: GENTAMICIN OINT 0.1% 15GM TP SCH (08:21)
[2017-08-19] MEDS ORDERED: ERGOCALCIFEROL 50,000 UNIT CAPSULE PO SCH (13:00)
[2017-08-19] MEDS ORDERED: VANCOMYCIN PMX 1GM/200ML 200 ML IVPB ONE (16:00)
[2017-08-19] MEDS: ONDANSETRON ODT 4 MG PO PRN (16:26)
[2017-08-19] MEDS: ATORVASTATIN 20 MG TABLET PO SCH (20:42)
[2017-08-19] MEDS: AMLODIPINE 5 MG TABLET PO SCH (20:42)
[2017-08-20 00:58] VITALS: BP 112/77
[2017-08-20 02:15] VITALS: BP 122/77
[2017-08-20] MEDS: OXYcodone IR 5MG TABLET PO PRN (02:18)
[2017-08-20] MEDS: HEPARIN 5,000 UNITS/ML, 1ML SQ SCH (05:49)
[2017-08-20] MEDS: PIPERACILLIN/TAZO/PMX 2.25GM 50 ML IV SCH (05:49)
[2017-08-20 07:50] VITALS: BP 137/95
[2017-08-20] MEDS: SEVELAMER 2.4 GM POWD.PACK PO SCH ×2 (08:12→12:21)
[2017-08-20] MEDS: VALSARTAN 160 MG TABLET PO SCH (08:13)
[2017-08-20] MEDS: CARVEDILOL 25 MG TABLET PO SCH (08:13)
[2017-08-20] MEDS: POTASSIUM CHLORIDE 20 MEQ TAB.ER.PRT PO SCH ×2 (08:13→12:21)
[2017-08-20] MEDS: GUAIFENESIN 200 MG TABLET PO SCH (08:13)
[2017-08-20] MEDS: CALCITRIOL 0.25 MCG CAPSULE PO SCH (08:13)
[2017-08-20] MEDS: GENTAMICIN OINT 0.1% 15GM TP SCH (08:17)
[2017-08-20] MEDS ORDERED: DOXY100T10 PO (12:07)
[2017-08-20] MEDS ORDERED: CEFD300C37 PO (12:07)
[2017-08-20] MEDS ORDERED: GUAI200T3 PO (12:11)
[2017-08-20 13:04] VITALS: BP 143/93
== END 2017-08-20 14:30 | disposition home or self-care (01) | DRG 871 ==
LOC: ED 11:35 → EDIP 11:41 → 3NE 12:07 → 4WST 08-18 10:27 → DCLOUNGE 08-20 14:14
PROVIDERS: ADMIT Hospitalist; ATTEND Hospitalist
PROC: 3E1M39Z Irrigation of Peritoneal Cavity using Dialysate, Percutaneous Approach (ICD-10-PCS; principal; 2017-08-16)
PROC: 3E1M39Z Irrigation of Peritoneal Cavity using Dialysate, Percutaneous Approach (ICD-10-PCS; 2017-08-17)
PROC: 3E1M39Z Irrigation of Peritoneal Cavity using Dialysate, Percutaneous Approach (ICD-10-PCS; 2017-08-18)
PROC: 3E1M39Z Irrigation of Peritoneal Cavity using Dialysate, Percutaneous Approach (ICD-10-PCS; 2017-08-19)
DX: A41.9 Sepsis, unspecified organism (principal); N18.6 End stage renal disease; E43 Unspecified severe protein-calorie malnutrition; I13.2 Hypertensive heart and chronic kidney disease with heart failure and with stage 5 chronic kidney disease, or end stage renal disease; J15.9 Unspecified bacterial pneumonia; E88.89 Other specified metabolic disorders; M32.14 Glomerular disease in systemic lupus erythematosus; I50.42 Chronic combined systolic (congestive) and diastolic (congestive) heart failure; E87.1 Hypo-osmolality and hyponatremia; M32.9 Systemic lupus erythematosus, unspecified; Z68.22 Body mass index [BMI] 22.0-22.9, adult; E87.6 Hypokalemia; Z99.2 Dependence on renal dialysis; Z87.01 Personal history of pneumonia (recurrent); Z79.899 Other long term (current) drug therapy; E78.5 Hyperlipidemia, unspecified; E55.9 Vitamin D deficiency, unspecified; E21.3 Hyperparathyroidism, unspecified; D63.1 Anemia in chronic kidney disease
CPT/HCPCS: 36415; 71046; 80048; 80053; 80061; 80069; 80202; 82728; 83036; 83540; 83550; 83605; 83735; 84145; 84439; 84443; 84484; 85025; 87040; 87070; 87205; 93005; J0881; J1644; J2543; J3370; Q0162; J0360; J3475; J7512; J7517

== ENCOUNTER 2017-09-09 13:48 | Day surgery (SDC) | payer MEDICARE ==
[~2017-09-09] VITALS: Ht 160 cm; Wt 48.2 kg
[~2017-09-09 13:48] MED LIST changes: +AMLO10TA2 PO; +GUAI200T3 PO
[2017-09-09] MEDS ORDERED: ACETAMINOPHEN 500 MG TABLET PO ONE (14:30)
[2017-09-09] MEDS ORDERED: ONDANSETRON ODT 8 MG PO ONE (14:30)
[2017-09-09 14:33] VITALS: BP 132/88
[2017-09-09] MEDS ORDERED: EPINEPHRINE 1 MG/ML, 1ML ONE (14:42)
[2017-09-09] MEDS ORDERED: BUPIVACAINE 0.25% ONE (14:42)
[2017-09-09 14:43] LABS: ALANINE AMINOTRANSFERASE 12 U/L (12-78); ALBUMIN 2.9 g/dL (3.4-5.0); ANION GAP 12 mmol/L (5-15); CALCIUM 9.3 mg/dL (8.5-10.1); CHLORIDE 95 mmol/L (98-107)
[2017-09-09] MEDS ORDERED: ACETAMINOPHEN 500 MG TABLET ONE (14:46)
[2017-09-09] MEDS ORDERED: ONDANSETRON ODT 8 MG ONE (14:46)
[2017-09-09 14:53] LABS: ALKALINE PHOSPHATASE 61 U/L (45-117); BILIRUBIN,TOTAL 0.5 mg/dL (0.2-1.0); TOTAL PROTEIN 7.4 g/dL (6.4-8.2)
[2017-09-09] MEDS ORDERED: MIDAZOLAM 1 MG/ML, 2ML ONE (14:53)
[2017-09-09] MEDS ORDERED: FENTANYL PF 100 MCG/2ML ONE (14:53)
[2017-09-09] MEDS ORDERED: PLEASE ENTER HEIGHT AND WEIGHT MC SCH (15:00)
[2017-09-09] MEDS ORDERED: KETOROLAC 30 MG/1 ML ONE (15:04)
[2017-09-09] MEDS ORDERED: MIDAZOLAM 1 MG/ML, 2ML IV PRN (15:30)
[2017-09-09] MEDS ORDERED: DIAZEPAM 5 MG/ML, 2ML IVPush PRN (15:30)
[2017-09-09] MEDS ORDERED: ALBUTEROL/IPRATROPIUM 2.5MG/0.5MG, 3 ML NPPB PRN (15:30)
[2017-09-09] MEDS ORDERED: EPHEDRINE 50 MG/ML, 1ML IM PRN (15:30)
[2017-09-09] MEDS ORDERED: ONDANSETRON ODT 8 MG PO PRN (15:30)
[2017-09-09] MEDS ORDERED: hydrALAzine 20 MG/ML, 1ML IV PRN (15:30)
[2017-09-09] MEDS ORDERED: OXYcodone 5 MG/5 ML ORAL.SOL UDC PO PRN (15:30)
[2017-09-09] MEDS ORDERED: MORPHINE SULFATE 4 MG/ML, 1ML IVPush PRN (15:30)
[2017-09-09] MEDS ORDERED: FENTANYL PF 100 MCG/2ML IV PRN (15:30)
[2017-09-09] MEDS ORDERED: LABETALOL 5MG/ML, 20ML IV PRN (15:30)
[2017-09-09] MEDS ORDERED: CEFAZOLIN 1,000 MG ONE (15:49)
[2017-09-09] MEDS ORDERED: PROPOFOL 10 MG/ML, 20ML ONE (15:49)
[2017-09-09] MEDS ORDERED: DEXAMETHASONE 4 MG/ML, 1ML ONE (15:49)
[2017-09-09] MEDS ORDERED: ONDANSETRON 2MG/ML, 2ML ONE (15:49)
== END 2017-09-09 17:55 | disposition home or self-care (01) ==
LOC: OR 13:48
PROVIDERS: ATTEND Specialist
DX: D06.0 Carcinoma in situ of endocervix (principal); I12.0 Hypertensive chronic kidney disease with stage 5 chronic kidney disease or end stage renal disease; N18.6 End stage renal disease
CPT/HCPCS: 36415; 57522; 80053; 84703; 88305; J0171; J0690; J1100; J1885; J2250; J2405; J2704; J3010; J3490

== ENCOUNTER 2017-09-12 13:07 | Inpatient (IN) | payer MEDICARE ==
[~2017-09-12] VITALS: Ht 160 cm; Wt 51.9 kg
[2017-09-12] VITALS (7 sets, daily range): BP systolic 130–175; BP diastolic 90–101
[2017-09-12 13:46] LABS: MEAN CORPUSCULAR HEMOGLOBIN 32.8 pg (27.0-34.8); MEAN CORPUSCULAR HGB CONC 32.4 g/dL (32.4-35.8); MEAN CORPUSCULAR VOLUME 101.4 fL (80-100); MEAN PLATELET VOLUME 6.7 fL (7.4-10.4); PLATELET COUNT 438 x10^3/uL (130-400); RED BLOOD COUNT 2.63 x10^6/uL (3.82-5.3); RED CELL DISTRIBUTION WIDTH 15.1 % (9.6-15.2)
[2017-09-12 13:55] LABS: ALANINE AMINOTRANSFERASE 14 U/L (12-78); ALBUMIN 2.7 g/dL (3.4-5.0); ANION GAP 11 mmol/L (5-15); CALCIUM 9.2 mg/dL (8.5-10.1); CHLORIDE 97 mmol/L (98-107)
[2017-09-12 13:59] LABS: ALKALINE PHOSPHATASE 61 U/L (45-117); BILIRUBIN,TOTAL 0.3 mg/dL (0.2-1.0); TOTAL PROTEIN 6.9 g/dL (6.4-8.2)
[2017-09-12 14:23] LABS: MD MORPH REVIEW ONLY
[2017-09-12 14:24] LABS: BASOPHILS # (AUTO) 0.02 x10^3/uL (0-0.1); BASOPHILS % (AUTO) 0 % (0-1); EOSINOPHILS # (AUTO) 0.01 x10^3/uL (0-0.4); EOSINOPHILS % (AUTO) 0 % (1-7); LYMPHOCYTES # (AUTO) 0.34 x10^3/uL (1-3.4); LYMPHOCYTES % (AUTO) 3 % (22-44); MONOCYTES # (AUTO) 0.22 x10^3/uL (0.2-0.8); MONOCYTES % (AUTO) 2 % (2-9); NEUTROPHILS # (AUTO) 11.02 x10^3/uL (1.8-6.8); NEUTROPHILS % (AUTO) 95 % (42-75)
[2017-09-12 14:27] LABS: <PLATELET ESTIMATE> INCREASED; ANISOCYTOSIS 1+; POLYCHROMASIA 1+
[2017-09-12 14:29] LABS: <PLT MORPHOLOGY> NORMAL PLT MORPH; OVALOCYTES 1+
[2017-09-12] MEDS ORDERED: ERGO2000 PO (14:47)
[2017-09-12] MEDS ORDERED: SEVE2.4P PO (14:49)
[2017-09-12 14:53] LABS: INTERNATIONAL NORMALIZED RATIO 1.04 (0.93-1.1); PROTHROMBIN TIME 10.7 Seconds (9.6-11.5)
[2017-09-12] MEDS ORDERED: SILVER NITRATE STICK TP ONE ×4 (15:58→17:56)
[2017-09-12] MEDS ORDERED: FERRIC SUBSULFATE TP ONE ×2 (16:00→17:54)
[2017-09-12] MEDS ORDERED: MAALOX/HYOSCYAMINE/LIDOCAINE 45 ML BTL ONE (16:05)
[2017-09-12] MEDS ORDERED: MIDAZOLAM 1 MG/ML, 2ML ONE (16:42)
[2017-09-12] MEDS ORDERED: FENTANYL PF 100 MCG/2ML ONE ×2 (16:42→18:18)
[2017-09-12] MEDS ORDERED: PHENYLEPHRINE 10 MG/ML ONE (17:05)
[2017-09-12] MEDS ORDERED: CEFAZOLIN 1,000 MG ONE (17:05)
[2017-09-12] MEDS ORDERED: PROPOFOL 10 MG/ML, 20ML ONE (17:05)
[2017-09-12] MEDS ORDERED: OXYcodone 5 MG/5 ML ORAL.SOL UDC ONE (18:18)
[2017-09-12] MEDS ORDERED: ACETAMINOPHEN 325 MG TABLET PO PRN ×2 (18:30→22:00)
[2017-09-12] MEDS ORDERED: HYDROmorphone 1 MG/ML, 1ML IV PRN (18:30)
[2017-09-12] MEDS ORDERED: OXYcodone 5 MG/5 ML ORAL.SOL UDC PO PRN (18:30)
[2017-09-12] MEDS ORDERED: FENTANYL PF 100 MCG/2ML IV PRN (18:30)
[2017-09-12] MEDS ORDERED: POLYETHYLENE GLYCOL 17 GM PACKET PO PRN ×2 (21:00→22:00)
[2017-09-12] MEDS ORDERED: ONDANSETRON ODT 4 MG PO PRN ×2 (21:00→22:00)
[2017-09-12] MEDS ORDERED: ONDANSETRON 2MG/ML, 2ML IVPush PRN ×3 (21:00→23:30)
[2017-09-12] MEDS ORDERED: LABETALOL 5MG/ML, 20ML IVPush PRN ×2 (21:00→22:00)
[2017-09-12 21:23] LABS: FREE T4 (FREE THYROXINE) 1.15 ng/dL (0.76-1.46)
[2017-09-12] MEDS ORDERED: hydrALAzine 20 MG/ML, 1ML IVPush PRN (22:00)
[2017-09-12] MEDS ORDERED: morphine SULFATE 10 MG/ML, 1ML IVPush PRN (22:00)
[2017-09-12] MEDS ORDERED: BISACODYL 10 MG SUPP PR PRN (22:00)
[2017-09-12] MEDS ORDERED: MAGNESIUM SULFATE 2 GM in SODIUM CHLORIDE 0.9% 50 ML IV ONE (22:00)
[2017-09-12] MEDS ORDERED: OXYcodone IR 5MG TABLET PO PRN (22:00)
[2017-09-12] MEDS ORDERED: DOCUSATE 100 MG CAPSULE PO PRN (22:00)
[2017-09-12] MEDS ORDERED: ATORVASTATIN 20 MG TABLET PO SCH (22:30)
[2017-09-12] MEDS ORDERED: ONDANSETRON 4 MG TABLET PO PRN (22:30)
[2017-09-12] MEDS: CALCITRIOL 0.25 MCG CAPSULE PO SCH (22:46)
[2017-09-12] MEDS: CARVEDILOL 25 MG TABLET PO SCH (22:46)
[2017-09-12] MEDS ORDERED: LACTATED RINGERS 1,000 ML IV SCH (23:30)
[2017-09-12] MEDS ORDERED: OXYcodone/APAP 5/325MG TABLET PO PRN (23:30)
[2017-09-12] MEDS: VALSARTAN 160 MG TABLET PO SCH (23:42)
[2017-09-13 01:14] VITALS: BP 116/79
[2017-09-13 05:44] LABS: ALANINE AMINOTRANSFERASE 10 U/L (12-78); ALBUMIN 2.1 g/dL (3.4-5.0); ANION GAP 12 mmol/L (5-15); CALCIUM 7.7 mg/dL (8.5-10.1); CHLORIDE 98 mmol/L (98-107)
[2017-09-13 05:48] LABS: BASOPHILS # (AUTO) 0.02 x10^3/uL (0-0.1); BASOPHILS % (AUTO) 0 % (0-1); EOSINOPHILS # (AUTO) 0.06 x10^3/uL (0-0.4); EOSINOPHILS % (AUTO) 1 % (1-7); LYMPHOCYTES # (AUTO) 1.16 x10^3/uL (1-3.4); LYMPHOCYTES % (AUTO) 15 % (22-44); MD NO; MEAN CORPUSCULAR HEMOGLOBIN 31.8 pg (27.0-34.8); MEAN CORPUSCULAR HGB CONC 33.3 g/dL (32.4-35.8); MEAN CORPUSCULAR VOLUME 95.8 fL (80-100); MEAN PLATELET VOLUME 6.7 fL (7.4-10.4); MONOCYTES # (AUTO) 0.42 x10^3/uL (0.2-0.8); MONOCYTES % (AUTO) 5 % (2-9); NEUTROPHILS # (AUTO) 6.07 x10^3/uL (1.8-6.8); NEUTROPHILS % (AUTO) 79 % (42-75); PLATELET COUNT 260 x10^3/uL (130-400); RED BLOOD COUNT 2.76 x10^6/uL (3.82-5.3); RED CELL DISTRIBUTION WIDTH 17.7 % (9.6-15.2)
[2017-09-13 05:55] LABS: ALKALINE PHOSPHATASE 46 U/L (45-117); BILIRUBIN,TOTAL 0.3 mg/dL (0.2-1.0); TOTAL PROTEIN 5.1 g/dL (6.4-8.2)
[2017-09-13 07:05] VITALS: BP 138/94
[2017-09-13] MEDS ORDERED: SEVELAMER 2.4 GM POWD.PACK PO SCH (08:00)
[2017-09-13] MEDS: CARVEDILOL 25 MG TABLET PO SCH (08:09)
[2017-09-13] MEDS: CALCITRIOL 0.25 MCG CAPSULE PO SCH (08:09)
[2017-09-13] MEDS: VALSARTAN 160 MG TABLET PO SCH (08:09)
[2017-09-13] MEDS ORDERED: SENNA/DOCUSATE TABLET PO SCH (09:00)
[2017-09-13] MEDS ORDERED: VALSARTAN 160 MG TABLET PO SCH (09:00)
[2017-09-13] MEDS ORDERED: AMLODIPINE 5 MG TABLET PO SCH (21:00)
== END 2017-09-13 11:17 | disposition home or self-care (01) | DRG 907 ==
LOC: ED 15:00 → 4WST 20:54
PROVIDERS: ADMIT Hospitalist; ATTEND Hospitalist
PROC: 30233N1 Transfusion of Nonautologous Red Blood Cells into Peripheral Vein, Percutaneous Approach (ICD-10-PCS; 2017-09-12)
PROC: 0UQC7ZZ Repair Cervix, Via Natural or Artificial Opening (ICD-10-PCS; principal; 2017-09-12 17:00)
DX: N99.821 Postprocedural hemorrhage of a genitourinary system organ or structure following other procedure (principal); E43 Unspecified severe protein-calorie malnutrition; N18.6 End stage renal disease; D62 Acute posthemorrhagic anemia; I13.2 Hypertensive heart and chronic kidney disease with heart failure and with stage 5 chronic kidney disease, or end stage renal disease; I50.22 Chronic systolic (congestive) heart failure; D06.9 Carcinoma in situ of cervix, unspecified; Y83.8 Other surgical procedures as the cause of abnormal reaction of the patient, or of later complication, without mention of misadventure at the time of the procedure; Y92.89 Other specified places as the place of occurrence of the external cause; D63.8 Anemia in other chronic diseases classified elsewhere; Z68.20 Body mass index [BMI] 20.0-20.9, adult; E55.9 Vitamin D deficiency, unspecified; E78.5 Hyperlipidemia, unspecified; M32.14 Glomerular disease in systemic lupus erythematosus; N93.9 Abnormal uterine and vaginal bleeding, unspecified; Z86.001 Personal history of in-situ neoplasm of cervix uteri; Z99.2 Dependence on renal dialysis
CPT/HCPCS: 36415; 80053; 82330; 82803; 82947; 83735; 84100; 84132; 84295; 84439; 84443; 84703; 85014; 85018; 85025; 85610; 86850; 86900; 86923; 93005; J0690; J2250; J2704; J3010; J2370; J7120; J7512; J7517; P9016

== ENCOUNTER 2017-09-14 07:33 | Day surgery (SDC) | payer MEDICARE ==
[~2017-09-14] VITALS: Ht 160 cm; Wt 50.1 kg
[~2017-09-14 07:33] MED LIST changes: +ERGO2000 PO; +HEPARIN 1,000 UNITS/ML, 10ML ONE; +PROTAMINE SULFATE 10 MG/ML, 5ML ONE; +SEVE2.4P PO
[2017-09-14 08:33] VITALS: BP 115/77
[2017-09-14] MEDS ORDERED: SODIUM CHLORIDE 0.9% 1,000 ML IV SCH (08:37)
[2017-09-14] MEDS ORDERED: MIDAZOLAM 1 MG/ML, 2ML ONE (10:51)
[2017-09-14] MEDS ORDERED: FENTANYL PF 100 MCG/2ML ONE ×3 (10:56→13:09)
[2017-09-14] MEDS ORDERED: THROMBIN 5,000 UNIT VIAL TP ONE (11:34)
[2017-09-14] MEDS ORDERED: PHENYLEPHRINE 10 MG/ML ONE (11:47)
[2017-09-14] MEDS ORDERED: PROPOFOL 10 MG/ML, 20ML ONE (11:47)
[2017-09-14] MEDS ORDERED: ONDANSETRON 2MG/ML, 2ML ONE (11:47)
[2017-09-14] MEDS ORDERED: CEFAZOLIN 1,000 MG ONE (11:47)
[2017-09-14] MEDS ORDERED: DEXAMETHASONE 4 MG/ML, 1ML ONE (11:47)
[2017-09-14] MEDS ORDERED: LABETALOL 5MG/ML, 20ML IV PRN (12:30)
[2017-09-14] MEDS ORDERED: ONDANSETRON ODT 8 MG PO PRN (12:30)
[2017-09-14] MEDS ORDERED: OXYcodone 5 MG/5 ML ORAL.SOL UDC PO PRN (12:30)
[2017-09-14] MEDS ORDERED: ACETAMINOPHEN 325 MG TABLET PO PRN (12:30)
[2017-09-14] MEDS ORDERED: HYDROcodone/APAP 7.5-325MG/15ML UDC PO PRN (12:30)
[2017-09-14] MEDS ORDERED: hydrALAzine 20 MG/ML, 1ML IV PRN (12:30)
[2017-09-14] MEDS: FENTANYL PF 100 MCG/2ML IV PRN ×3 (12:52→13:12)
[2017-09-14] MEDS ORDERED: ACETAMINOPHEN 650 MG/20.3 ML UDC ONE (12:53)
[2017-09-14] MEDS ORDERED: OXYcodone 5 MG/5 ML ORAL.SOL UDC ONE (12:53)
== END 2017-09-14 15:40 ==
LOC: OUT 07:33
PROVIDERS: ATTEND Surgery Vascular Surgery
DX: N18.6 End stage renal disease (principal)
CPT/HCPCS: 36415; 36821; 80047; J0690; J1100; J1644; J2370; J2405; J2704; J2720; J3010; J7030; J2250

== ENCOUNTER 2018-01-21 17:34 | Emergency (ER) | payer MEDICARE ==
[~2018-01-21] VITALS: Ht 162.6 cm; Wt 51.1 kg
[~2018-01-21 17:34] MED LIST changes: -AMLO10TA2 PO; +AMLO10TA6 PO; -HEPARIN 1,000 UNITS/ML, 10ML ONE; -LOSA50TA6 PO; +LOSA50TA7 PO; -PROTAMINE SULFATE 10 MG/ML, 5ML ONE
[2018-01-21 18:31] LABS: BASOPHILS # (AUTO) 0.03 x10^3/uL (0-0.1); BASOPHILS % (AUTO) 1 % (0-1); EOSINOPHILS # (AUTO) 0.03 x10^3/uL (0-0.4); EOSINOPHILS % (AUTO) 1 % (1-7); LYMPHOCYTES # (AUTO) 0.27 x10^3/uL (1-3.4); LYMPHOCYTES % (AUTO) 4 % (22-44); MD NO; MEAN CORPUSCULAR HEMOGLOBIN 33.8 pg (27.0-34.8); MEAN CORPUSCULAR HGB CONC 33.7 g/dL (32.4-35.8); MEAN CORPUSCULAR VOLUME 100.4 fL (80-100); MEAN PLATELET VOLUME 7.4 fL (7.4-10.4); MONOCYTES # (AUTO) 0.24 x10^3/uL (0.2-0.8); MONOCYTES % (AUTO) 4 % (2-9); NEUTROPHILS # (AUTO) 5.49 x10^3/uL (1.8-6.8); NEUTROPHILS % (AUTO) 91 % (42-75); PLATELET COUNT 451 x10^3/uL (130-400); RED BLOOD COUNT 2.62 x10^6/uL (3.82-5.3); RED CELL DISTRIBUTION WIDTH 14.2 % (9.6-15.2)
[2018-01-21 18:44] LABS: ALBUMIN 3.2 g/dL (3.4-5.0); ANION GAP 16 mmol/L (5-15); CALCIUM 9.1 mg/dL (8.5-10.1); CHLORIDE 81 mmol/L (98-107)
[2018-01-21 18:50] LABS: ALANINE AMINOTRANSFERASE 21 U/L (12-78); ALKALINE PHOSPHATASE 75 U/L (45-117); BILIRUBIN,TOTAL 0.6 mg/dL (0.2-1.0); TOTAL PROTEIN 7.5 g/dL (6.4-8.2)
[2018-01-21 19:21] VITALS: BP 105/66
[2018-01-21] MEDS ORDERED: POTASSIUM CHLORIDE 20 MEQ TAB.ER.PRT PO ONE (19:30)
== END 2018-01-21 19:33 | disposition home or self-care (01) ==
LOC: ED 18:15
DX: N28.9 Disorder of kidney and ureter, unspecified (principal); D63.8 Anemia in other chronic diseases classified elsewhere; E87.6 Hypokalemia; R06.00 Dyspnea, unspecified; N17.9 Acute kidney failure, unspecified; I50.9 Heart failure, unspecified; Z99.2 Dependence on renal dialysis
CPT/HCPCS: 36415; 71046; 80053; 83880; 85025; 93005; 99285

== ENCOUNTER 2018-02-20 16:10 | Inpatient (IN) | payer MEDICARE ==
[~2018-02-20] VITALS: Ht 160 cm; Wt 51.9 kg
[2018-02-20] MEDS ORDERED: SODIUM CHLORIDE FLUSH 10ML SYR IVF ONE (16:30)
[2018-02-20 16:41] LABS: MEAN CORPUSCULAR HEMOGLOBIN 33.3 pg (27.0-34.8); MEAN CORPUSCULAR HGB CONC 32.9 g/dL (32.4-35.8); MEAN CORPUSCULAR VOLUME 101.2 fL (80-100); MEAN PLATELET VOLUME 7.1 fL (7.4-10.4); PLATELET COUNT 481 x10^3/uL (130-400); RED BLOOD COUNT 2.41 x10^6/uL (3.82-5.3); RED CELL DISTRIBUTION WIDTH 16.6 % (9.6-15.2)
[2018-02-20 16:51] LABS: ALANINE AMINOTRANSFERASE 15 U/L (12-78); ALBUMIN 2.9 g/dL (3.4-5.0); ANION GAP 3 mmol/L (5-15); CALCIUM 9.2 mg/dL (8.5-10.1); CHLORIDE 96 mmol/L (98-107); INTERNATIONAL NORMALIZED RATIO 1.04 (0.93-1.1)
[2018-02-20 16:56] LABS: ALKALINE PHOSPHATASE 76 U/L (45-117); BILIRUBIN,TOTAL 0.7 mg/dL (0.2-1.0); MD YES; TOTAL PROTEIN 6.7 g/dL (6.4-8.2)
[2018-02-20 17:16] LABS: EOS#(MANUAL) 0.04 x10^3/uL (0.0-0.4); EOS% (MANUAL) 1 % (1-7); LYMPH#(MANUAL) 0.56 x10^3/uL (1-3.4); LYMPHS% (MANUAL) 15 % (22-44); MONOS% (MANUAL) 8 % (2-9); SEG#(MANUAL) 2.81 x10^3/uL (1.8-6.8); SEGS% (MANUAL) 76 % (42-75)
[2018-02-20 17:17] LABS: <PLATELET ESTIMATE> INCREASED; <PLT MORPHOLOGY> NORMAL PLT MORPH; ANISOCYTOSIS 1+
[2018-02-20] MEDS ORDERED: ONDANSETRON 2MG/ML, 2ML IVPush ONE (17:30)
[2018-02-20] MEDS ORDERED: ONDANSETRON 2MG/ML, 2ML ONE (17:35)
[2018-02-20] MEDS ORDERED: MORPHINE SULFATE 4 MG/ML, 1ML ONE ×2 (17:36→18:49)
[2018-02-20] MEDS: MORPHINE SULFATE 4 MG/ML, 1ML IVPush PRN ×2 (17:40→18:52)
[2018-02-20] MEDS ORDERED: CARV12.543 PO (17:54)
[2018-02-20] MEDS ORDERED: B&C/1TAB3 PO (17:55)
[2018-02-20] MEDS ORDERED: CHOL200074 PO (17:56)
[2018-02-20] MEDS ORDERED: AMOX-291 PO (17:59)
[2018-02-20] MEDS ORDERED: POTA20TA14 PO (18:00)
[2018-02-20] MEDS ORDERED: ONDANSETRON 4 MG TABLET PO PRN (18:30)
[2018-02-20] MEDS ORDERED: DOCUSATE 100 MG CAPSULE PO PRN (18:30)
[2018-02-20] MEDS ORDERED: POLYETHYLENE GLYCOL 17 GM PACKET PO PRN (18:30)
[2018-02-20] MEDS ORDERED: TEMPLATE NON-FORMULARY MED. (Prednisone** 10 MG) PO SCH (18:30)
[2018-02-20] MEDS ORDERED: BUTALB/APAP/CAFFEINE 50MG/325MG/40MG PO PRN (18:30)
[2018-02-20] MEDS ORDERED: ASPIRIN 81 MG TABLET CHEW PO ONE (18:30)
[2018-02-20] MEDS ORDERED: BISACODYL 10 MG SUPP PR PRN (18:30)
[2018-02-20] MEDS ORDERED: ASPIRIN 81 MG TABLET CHEW ONE (18:39)
[2018-02-20] MEDS ORDERED: ACETAMINOPHEN 325 MG TABLET ONE (18:40)
[2018-02-20] MEDS: ACETAMINOPHEN 325 MG TABLET PO PRN (18:42)
[2018-02-20] MEDS ORDERED: OMNIPAQUE 350 MG/ML, 100ML BOTTLE ONE (19:00)
[2018-02-20 19:14] LABS: FOLATE LEVEL 14.9 ng/mL (3.1-17.5)
[2018-02-20] MEDS: ATORVASTATIN 40 MG TABLET PO SCH (19:46)
[2018-02-20] MEDS: MULTIVITAMIN 1 TABLET PO SCH ×2 (19:46→20:51)
[2018-02-20] MEDS: CALCITRIOL 0.25 MCG CAPSULE PO SCH (19:46)
[2018-02-20] MEDS: CARVEDILOL 12.5 MG TABLET PO SCH (19:47)
[2018-02-20 19:48] VITALS: BP 116/78
[2018-02-20] MEDS ORDERED: GENTAMICIN CRM 0.1%, 30GM TP SCH (20:30)
[2018-02-20] MEDS: SEVELAMER 2.4 GM POWD.PACK PO SCH (20:51)
[2018-02-20] MEDS: GENTAMICIN OINT 0.1% 15GM TP SCH (21:41)
[2018-02-20] MEDS ORDERED: LOSA25TA6 PO (21:59)
[2018-02-20 23:00] VITALS: BP 84/56
[2018-02-21] VITALS (14 sets, daily range): BP systolic 79–118; BP diastolic 55–80
[2018-02-21 06:20] LABS: MEAN CORPUSCULAR HGB CONC 33.5 g/dL (32.4-35.8); MEAN CORPUSCULAR VOLUME 101.6 fL (80-100); MEAN PLATELET VOLUME 7.2 fL (7.4-10.4); PLATELET COUNT 380 x10^3/uL (130-400); RED BLOOD COUNT 2.31 x10^6/uL (3.82-5.3); RED CELL DISTRIBUTION WIDTH 16.4 % (9.6-15.2)
[2018-02-21 06:27] LABS: CHLORIDE 95 mmol/L (98-107)
[2018-02-21 06:46] LABS: BASOPHILS # (AUTO) 0.01 x10^3/uL (0-0.1); BASOPHILS % (AUTO) 0 % (0-1); EOSINOPHILS # (AUTO) 0.05 x10^3/uL (0-0.4); EOSINOPHILS % (AUTO) 2 % (1-7); LYMPHOCYTES # (AUTO) 0.47 x10^3/uL (1-3.4); LYMPHOCYTES % (AUTO) 13 % (22-44); MD SCAN; MONOCYTES # (AUTO) 0.24 x10^3/uL (0.2-0.8); MONOCYTES % (AUTO) 7 % (2-9); NEUTROPHILS # (AUTO) 2.74 x10^3/uL (1.8-6.8); NEUTROPHILS % (AUTO) 78 % (42-75)
[2018-02-21 06:52] LABS: % IRON SATURATION 98 % (20-55); ALANINE AMINOTRANSFERASE 12 U/L (12-78); ALBUMIN 2.5 g/dL (3.4-5.0); ALKALINE PHOSPHATASE 73 U/L (45-117); ANION GAP 10 mmol/L (5-15); BILIRUBIN,TOTAL 0.3 mg/dL (0.2-1.0); CALCIUM 8.5 mg/dL (8.5-10.1); CHOL/HDL RATIO 2.4; CHOLESTEROL, TOTAL 77 mg/dL (140-239); HDL CHOL % 42 % (28-40); HDL CHOLESTEROL (DIRECT) 32 mg/dL (40-60); IRON LEVEL 179 mcg/dL (50-170); LDL CHOLESTEROL,CALCULATED 25 mg/dL (54-169); LDL/HDL RATIO 0.8 (0.5-3.0); TOTAL IRON BINDING CAPACITY 183 mcg/dL (250-450); TOTAL PROTEIN 6.1 g/dL (6.4-8.2); TRIGLYCERIDES 100 mg/dL (50-200); VLDL CHOLESTEROL 20 mg/dL (0-25)
[2018-02-21] MEDS: CALCITRIOL 0.25 MCG CAPSULE PO SCH ×2 (08:39→21:01)
[2018-02-21] MEDS: POTASSIUM CHLORIDE 20 MEQ TAB.ER.PRT PO SCH (08:39)
[2018-02-21] MEDS: CHOLECALCIFEROL 1,000 UNIT TABLET PO SCH (08:40)
[2018-02-21] MEDS: SEVELAMER 2.4 GM POWD.PACK PO SCH ×3 (08:40→21:03)
[2018-02-21] MEDS: ASPIRIN 81 MG TABLET CHEW PO/NG SCH (08:40)
[2018-02-21] MEDS: CARVEDILOL 12.5 MG TABLET PO SCH ×2 (08:43→21:01)
[2018-02-21] MEDS ORDERED: MAGNESIUM SULFATE PMX 4GM/100M 100 ML IV ONE (13:00)
[2018-02-21] MEDS: HEPARIN 5,000 UNITS/ML, 1ML SQ SCH ×2 (14:30→21:33)
[2018-02-21] MEDS: ACETAMINOPHEN 325 MG TABLET PO PRN (17:54)
[2018-02-21] MEDS: GENTAMICIN OINT 0.1% 15GM TP SCH (20:41)
[2018-02-21] MEDS: ATORVASTATIN 40 MG TABLET PO SCH (21:01)
[2018-02-21] MEDS: MULTIVITAMIN 1 TABLET PO SCH (21:01)
[2018-02-22 00:10] VITALS: BP 100/68
[2018-02-22] MEDS: HEPARIN 5,000 UNITS/ML, 1ML SQ SCH (04:07)
[2018-02-22 05:54] LABS: BASOPHILS # (AUTO) 0.01 x10^3/uL (0-0.1); BASOPHILS % (AUTO) 0 % (0-1); EOSINOPHILS # (AUTO) 0.03 x10^3/uL (0-0.4); EOSINOPHILS % (AUTO) 1 % (1-7); LYMPHOCYTES # (AUTO) 0.48 x10^3/uL (1-3.4); LYMPHOCYTES % (AUTO) 13 % (22-44); MD NO; MEAN CORPUSCULAR HEMOGLOBIN 33.3 pg (27.0-34.8); MEAN CORPUSCULAR HGB CONC 33.7 g/dL (32.4-35.8); MEAN CORPUSCULAR VOLUME 98.7 fL (80-100); MEAN PLATELET VOLUME 7.3 fL (7.4-10.4); MONOCYTES # (AUTO) 0.25 x10^3/uL (0.2-0.8); MONOCYTES % (AUTO) 7 % (2-9); NEUTROPHILS # (AUTO) 2.81 x10^3/uL (1.8-6.8); NEUTROPHILS % (AUTO) 79 % (42-75); PLATELET COUNT 328 x10^3/uL (130-400); RED BLOOD COUNT 2.38 x10^6/uL (3.82-5.3); RED CELL DISTRIBUTION WIDTH 17.9 % (9.6-15.2)
[2018-02-22 06:04] LABS: ALBUMIN 2.3 g/dL (3.4-5.0); ANION GAP 8 mmol/L (5-15); CALCIUM 9.2 mg/dL (8.5-10.1); CHLORIDE 91 mmol/L (98-107)
[2018-02-22 06:09] LABS: ALANINE AMINOTRANSFERASE 10 U/L (12-78); ALKALINE PHOSPHATASE 68 U/L (45-117); BILIRUBIN,TOTAL 0.4 mg/dL (0.2-1.0); TOTAL PROTEIN 5.6 g/dL (6.4-8.2)
[2018-02-22 07:00] VITALS: BP 107/70
[2018-02-22] MEDS ORDERED: ASPI-515 PO/NG (07:55)
[2018-02-22] MEDS: SEVELAMER 2.4 GM POWD.PACK PO SCH (08:19)
[2018-02-22] MEDS: CALCITRIOL 0.25 MCG CAPSULE PO SCH (08:21)
[2018-02-22] MEDS: CHOLECALCIFEROL 1,000 UNIT TABLET PO SCH (08:21)
[2018-02-22] MEDS: POTASSIUM CHLORIDE 20 MEQ TAB.ER.PRT PO SCH (08:22)
[2018-02-22] MEDS: ASPIRIN 81 MG TABLET CHEW PO/NG SCH (08:23)
[2018-02-22] MEDS: CARVEDILOL 12.5 MG TABLET PO SCH (08:24)
== END 2018-02-22 09:41 | disposition home or self-care (01) | DRG 545 ==
LOC: ED 16:48 → EDIP 17:15 → 4WST 19:31 → DCLOUNGE 02-22 09:30
PROVIDERS: ADMIT Hospitalist; ATTEND Hospitalist
PROC: 3E1M39Z Irrigation of Peritoneal Cavity using Dialysate, Percutaneous Approach (ICD-10-PCS; 2018-02-20)
PROC: 30233N1 Transfusion of Nonautologous Red Blood Cells into Peripheral Vein, Percutaneous Approach (ICD-10-PCS; principal; 2018-02-21)
PROC: 3E1M39Z Irrigation of Peritoneal Cavity using Dialysate, Percutaneous Approach (ICD-10-PCS; 2018-02-21)
DX: M32.14 Glomerular disease in systemic lupus erythematosus (principal); E43 Unspecified severe protein-calorie malnutrition; N18.6 End stage renal disease; G45.9 Transient cerebral ischemic attack, unspecified; E87.1 Hypo-osmolality and hyponatremia; I13.2 Hypertensive heart and chronic kidney disease with heart failure and with stage 5 chronic kidney disease, or end stage renal disease; N25.81 Secondary hyperparathyroidism of renal origin; Q21.1 Atrial septal defect; I50.42 Chronic combined systolic (congestive) and diastolic (congestive) heart failure; D53.9 Nutritional anemia, unspecified; D63.1 Anemia in chronic kidney disease; E78.5 Hyperlipidemia, unspecified; E83.42 Hypomagnesemia; G43.109 Migraine with aura, not intractable, without status migrainosus; I95.89 Other hypotension; N25.0 Renal osteodystrophy; Z79.899 Other long term (current) drug therapy; Z87.01 Personal history of pneumonia (recurrent); Z99.2 Dependence on renal dialysis; Z68.20 Body mass index [BMI] 20.0-20.9, adult
CPT/HCPCS: 36415; 70450; 70496; 70498; 71045; 80047; 80053; 80061; 81241; 82306; 82607; 82728; 82746; 83090; 83540; 83550; 83735; 83970; 84100; 84550; 84703; 85025; 85300; 85303; 85306; 85598; 85610; 85613; 85670; 85730; 85732; 86146; 86147; 86850; 86900; 86923; 87040; 93306; 96374; 96375; 96376; 99291; G0378; J2405; Q0162; Q9967; J3475; J7517; P9016

== ENCOUNTER 2018-03-22 09:25 | Emergency (ER) | payer MEDICARE ==
[~2018-03-22] VITALS: Ht 162.6 cm; Wt 45.7 kg
[~2018-03-22 09:25] MED LIST changes: +AMOX-291 PO; +ASPI-515 PO/NG; +ATOR20TA37 PO; -ATOR20TA9 PO; +B&C/1TAB3 PO; +CARV12.543 PO; +CHOL200074 PO; +LOSA25TA6 PO; +POTA20TA14 PO
[2018-03-22] MEDS ORDERED: ACETAMINOPHEN 500 MG TABLET ONE (10:27)
[2018-03-22] MEDS ORDERED: ACETAMINOPHEN 500 MG TABLET PO ONE (10:30)
[2018-03-22 10:58] LABS: MEAN CORPUSCULAR HEMOGLOBIN 34.6 pg (27.0-34.8); MEAN CORPUSCULAR HGB CONC 33.5 g/dL (32.4-35.8); MEAN CORPUSCULAR VOLUME 103.4 fL (80-100); MEAN PLATELET VOLUME 7.5 fL (7.4-10.4); PLATELET COUNT 318 x10^3/uL (130-400); RED BLOOD COUNT 1.98 x10^6/uL (3.82-5.3)
[2018-03-22 11:00] LABS: HEMOGRAM NOTE RECHECKED
[2018-03-22 11:03] LABS: ALBUMIN 2.6 g/dL (3.4-5.0); ANION GAP 12 mmol/L (5-15); CALCIUM 8.5 mg/dL (8.5-10.1); CHLORIDE 88 mmol/L (98-107)
[2018-03-22 11:03] LABS: RAPID INFLUENZA A Negative (Negative); RAPID INFLUENZA B Negative (Negative)
[2018-03-22 11:09] LABS: ALANINE AMINOTRANSFERASE 9 U/L (12-78); ALKALINE PHOSPHATASE 73 U/L (45-117); BILIRUBIN,TOTAL 0.5 mg/dL (0.2-1.0); TOTAL PROTEIN 6.8 g/dL (6.4-8.2)
[2018-03-22 11:13] LABS: MD YES
[2018-03-22 11:15] LABS: BAND#(MANUAL) 0.06 x10^3/uL; BANDS%(MANUAL) 1 % (0-7); LYMPH#(MANUAL) 0.87 x10^3/uL (1-3.4); LYMPHS% (MANUAL) 15 % (22-44); MONOS#(MANUAL) 0.17 x10^3/uL (0.3-2.7); MONOS% (MANUAL) 3 % (2-9); NRBC % (MANUAL) 1 % (0-1); SEGS% (MANUAL) 81 % (42-75)
[2018-03-22 11:16] LABS: <PLATELET ESTIMATE> ADEQUATE; ANISOCYTOSIS 1+; HYPOCHROMIA 1+; OVALOCYTES 1+; POLYCHROMASIA 1+; TEAR DROPS 1+
[2018-03-22 11:17] LABS: LARGE PLATELETS 1+
[2018-03-22 13:37] VITALS: BP 91/51
[2018-03-22 13:53] VITALS: BP 102/54
[2018-03-22 14:23] VITALS: BP 107/58
[2018-03-22 14:39] VITALS: BP 107/56
== END 2018-03-22 15:35 | disposition home or self-care (01) ==
LOC: ED 10:09
DX: D63.1 Anemia in chronic kidney disease (principal); N18.9 Chronic kidney disease, unspecified; I13.0 Hypertensive heart and chronic kidney disease with heart failure and stage 1 through stage 4 chronic kidney disease, or unspecified chronic kidney disease; I50.9 Heart failure, unspecified; Z86.73 Personal history of transient ischemic attack (TIA), and cerebral infarction without residual deficits
CPT/HCPCS: 36415; 36430; 71046; 80053; 83605; 84703; 85025; 86850; 86900; 86923; 87040; 87400; 99285; P9016

== ENCOUNTER → 2018-07-01 | Outpatient (CLI) | payer MEDICARE ==
[~2018-07-01] MED LIST changes: -AMLO10TA6 PO; +AMLO10TA8 PO; +LOSA25TA25 PO; -LOSA25TA6 PO; +LOSA50TA14 PO; -LOSA50TA7 PO
== END | disposition home or self-care (01) ==
LOC: CVU 14:43
PROVIDERS: ATTEND Anesthesiology
DX: I08.8 Other rheumatic multiple valve diseases (principal); M32.9 Systemic lupus erythematosus, unspecified; N18.6 End stage renal disease
CPT/HCPCS: 93306

== ENCOUNTER 2018-07-08 05:02 | Emergency (ER) | payer MEDICARE ==
[~2018-07-08] VITALS: Ht 160 cm; Wt 53.0 kg
[2018-07-08] MEDS ORDERED: HYDROcodone/APAP 5/325 TABLET PO ONE (05:30)
[2018-07-08] MEDS ORDERED: HYDROcodone/APAP 5/325 TABLET ONE (05:44)
--- NOTE | 2018-07-08 05:47 | NUR ---
BIB [facility] FOR [facility] STRAIGHT THRU TO BACK AND UP NECK. STATES ABOUT 2100 WHILE DOING PERITONEAL DIALYSIS AT HOME. STATES SMOKED WEEK HOPING THAT WOULD HELP PAIN. PT STATES HAD A CHILI CHEESE DOG AT 1800 WHEN SHE STARTED DIALYSIS. POSITION OF COMFORT IS SLIGHTLY CURLED UP. KIDS WITH MOTHER IN ROOM, CALL LIGHT IN REACH
[2018-07-08 06:05] LABS: MEAN CORPUSCULAR HEMOGLOBIN 36.1 pg (27.0-34.8); MEAN CORPUSCULAR HGB CONC 31.6 g/dL (32.4-35.8); MEAN PLATELET VOLUME 6.4 fL (7.4-10.4); PLATELET COUNT 408 x10^3/uL (130-400); RED BLOOD COUNT 3.01 x10^6/uL (3.82-5.3); RED CELL DISTRIBUTION WIDTH 21.1 % (9.6-15.2)
[2018-07-08 06:30] LABS: ALBUMIN 2.1 g/dL (3.4-5.0); ANION GAP 11 mmol/L (5-15); CHLORIDE 104 mmol/L (98-107)
[2018-07-08 06:32] LABS: ALANINE AMINOTRANSFERASE 12 U/L (12-78); ALKALINE PHOSPHATASE 54 U/L (45-117); BILIRUBIN,TOTAL 0.3 mg/dL (0.2-1.0); CREATININE 9.23 mg/dL (0.55-1.02); TOTAL PROTEIN 5.5 g/dL (6.4-8.2)
[2018-07-08 06:35] LABS: MD YES
[2018-07-08 06:37] LABS: LYMPH#(MANUAL) 0.23 x10^3/uL (1-3.4); LYMPHS% (MANUAL) 3 % (22-44); MONOS#(MANUAL) 0.08 x10^3/uL (0.3-2.7); MONOS% (MANUAL) 1 % (2-9); NRBC % (MANUAL) 1 % (0-1); SEGS% (MANUAL) 96 % (42-75)
[2018-07-08 06:38] LABS: ANISOCYTOSIS 1+; OVALOCYTES 1+; POLYCHROMASIA 1+; TEAR DROPS 1+
[2018-07-08 06:39] LABS: <PLATELET ESTIMATE> ADEQUATE
[2018-07-08 06:40] LABS: <PLT MORPHOLOGY> NORMAL PLT MORPH
[2018-07-08] MEDS ORDERED: PRED10TA14 PO (07:12)
[2018-07-08] MEDS ORDERED: MAGN400T26 PO (07:12)
--- NOTE | 2018-07-08 07:12 | NUR ---
RECEIVED REPORT FROM CORIN OCHOA RN. PT RESTING ON [facility]. NADN. REAGANS. AWARE OF POC FOR CT.
--- NOTE | 2018-07-08 07:14 | NUR ---
CT WAITING FOR IV ACCESS
--- NOTE | 2018-07-08 07:40 | NUR ---
PT TO CT IN STABLE CONDITION.
--- NOTE | 2018-07-08 07:53 | NUR ---
Note yoanone in EDM - 07/08/18 at 0754 by NORAH PT RETURN FROM RADIOLOGY. PT MEDICATED ORDERED FOR 11/06 ABD PAIN. PT CONT WITH PULSE OX AND AUTO BP IN PLACE. NO NEEDS EXPRESSED AT THIS TIME.
[2018-07-08] MEDS ORDERED: OMNIPAQUE 350 MG/ML, 100ML BOTTLE ONE (08:02)
[2018-07-08 08:29] VITALS: BP 132/85
--- NOTE | 2018-07-08 08:51 | NUR ---
LAB AT BEDSIDE ATTEMPTING TO RETRIEVE ISTAT LAB.
== END 2018-07-08 09:11 | disposition home or self-care (01) ==
LOC: ED 05:55
DX: R07.2 Precordial pain (principal); K85.90 Acute pancreatitis without necrosis or infection, unspecified; I13.2 Hypertensive heart and chronic kidney disease with heart failure and with stage 5 chronic kidney disease, or end stage renal disease; N18.5 Chronic kidney disease, stage 5; I50.9 Heart failure, unspecified; Z99.2 Dependence on renal dialysis; Z86.73 Personal history of transient ischemic attack (TIA), and cerebral infarction without residual deficits
CPT/HCPCS: 36415; 71045; 71275; 80053; 83690; 83880; 84484; 85025; 93005; 99284; Q9967

== ENCOUNTER 2018-07-24 03:12 | Inpatient (IN) | payer MEDICARE ==
[~2018-07-24] VITALS: Ht 160 cm; Wt 52.1 kg
[~2018-07-24 03:12] MED LIST changes: +MAGN400T26 PO; +PRED10TA14 PO
--- NOTE | 2018-07-24 03:34 | NUR ---
BIB [facility] AFTER EXPERIENCING A COUGH FOR THE PAST WEEK, REPORTS CLEAR SPUTUM, DENIES ANY SOB, FEVER/CHILLS OR SORE THROAT. PT IS ON PERITONEAL DIALYSIS FOR LUPUS NEPHRITIS. LUNGS CLEAR AND EQUAL BILATERALLY. NO SOB NOTED.
[2018-07-24 03:49] LABS: ALANINE AMINOTRANSFERASE 19 U/L (12-78); ALBUMIN 2.5 g/dL (3.4-5.0); ANION GAP 8 mmol/L (5-15); CALCIUM 8.9 mg/dL (8.5-10.1); CHLORIDE 104 mmol/L (98-107)
--- NOTE | 2018-07-24 03:54 | NUR ---
PT MEDICATED PER EMAR. 5 RIGHTS ADDRESSED
[2018-07-24 03:57] LABS: MEAN CORPUSCULAR HEMOGLOBIN 35.5 pg (27.0-34.8); MEAN CORPUSCULAR VOLUME 114.4 fL (80-100); MEAN PLATELET VOLUME 7.4 fL (7.4-10.4); PLATELET COUNT 412 x10^3/uL (130-400); RED BLOOD COUNT 3.15 x10^6/uL (3.82-5.3); RED CELL DISTRIBUTION WIDTH 18.9 % (9.6-15.2)
[2018-07-24 04:06] LABS: ALKALINE PHOSPHATASE 65 U/L (45-117); BILIRUBIN,TOTAL 0.2 mg/dL (0.2-1.0)
[2018-07-24] MEDS ORDERED: BENZONATATE 100 MG CAPSULE ONE (04:08)
--- NOTE | 2018-07-24 04:12 | NUR ---
PT FREQUENTLY COUGHING, MEDICATED PER EMAR. 5 RIGHTS ADDRESSED.
[2018-07-24] MEDS ORDERED: ALBUTEROL/IPRATROPIUM 2.5MG/0.5MG, 3 ML ONE (04:17)
[2018-07-24] MEDS ORDERED: ALBUTEROL/IPRATROPIUM 2.5MG/0.5MG, 3 ML NPPB ONE (04:30)
[2018-07-24] MEDS ORDERED: BENZONATATE 100 MG CAPSULE PO ONE (04:30)
--- NOTE | 2018-07-24 05:01 | NUR ---
ALL RESULTS BACK. NEPHROLOGY TO BE CONSULTED. PT RESTING ON GURNEY. STILL REPORTS CONSTANT COUGH. RA SATS 95%. NO RESP DISTRESS NOTED.
[2018-07-24 05:40] LABS: BASOPHILS # (AUTO) 0.01 x10^3/uL (0-0.1); BASOPHILS % (AUTO) 0 % (0-1); EOSINOPHILS # (AUTO) 0.07 x10^3/uL (0-0.4); EOSINOPHILS % (AUTO) 1 % (1-7); LYMPHOCYTES # (AUTO) 0.71 x10^3/uL (1-3.4); LYMPHOCYTES % (AUTO) 11 % (22-44); MD SCAN; MONOCYTES # (AUTO) 0.39 x10^3/uL (0.2-0.8); MONOCYTES % (AUTO) 6 % (2-9); NEUTROPHILS # (AUTO) 5.38 x10^3/uL (1.8-6.8); NEUTROPHILS % (AUTO) 82 % (42-75)
--- NOTE | 2018-07-24 05:44 | NUR ---
PT PROVIDED WITH PILLOW AND WARM BLANKETS
--- NOTE | 2018-07-24 05:46 | NUR ---
RA SAT DROPPED TO 88-90%, PT PLACED ON O2 @ 3LPM.
[2018-07-24] MEDS ORDERED: DOXYCYCLINE 100 MG in DEXTROSE 5% 250 ML IV ONE (06:00)
--- NOTE | 2018-07-24 06:14 | NUR ---
IV ESTABLISHED IN RIGHT HAND
--- NOTE | 2018-07-24 06:25 | NUR ---
ASSISTED IN PT CARE. IV ANTIBIOTICS STARTED--NO CULTURES TO BE DRAWN FIRST, PER DR FERNÁNDEZ.
--- NOTE | 2018-07-24 06:59 | NUR ---
RECEIVED REPORT FROM LIONEL CRUZ, PLAN OF CARE DISCUSSED
--- NOTE | 2018-07-24 07:06 | NUR ---
REPORT GIVEN TO ANTHONY THOMPSON.
[2018-07-24] MEDS ORDERED: hydrALAzine 20 MG/ML, 1ML ONE (07:24)
[2018-07-24] MEDS: hydrALAzine 20 MG/ML, 1ML IVPush PRN ×2 (07:29→22:12)
[2018-07-24] MEDS ORDERED: INSULIN REGULAR 100 UNITS/ML, 3ML VIAL IVPush ONE (07:30)
[2018-07-24] MEDS ORDERED: DEXTROSE 4 GM TAB.CHEW PO PRN (07:30)
[2018-07-24] MEDS ORDERED: SODIUM POLYSTYRENE SULFONATE ORAL SUSP PO ONE (07:30)
[2018-07-24] MEDS ORDERED: LABETALOL 5MG/ML, 20ML IVPush PRN (07:30)
[2018-07-24] MEDS ORDERED: ACETAMINOPHEN 325 MG TABLET PO PRN (07:30)
[2018-07-24] MEDS ORDERED: GLUCAGON 1 MG IM PRN (07:30)
[2018-07-24] MEDS ORDERED: ONDANSETRON 2MG/ML, 2ML IVPush PRN (07:30)
[2018-07-24] MEDS ORDERED: DEXTROSE 50%, 50ML VIAL IVPush ONE ×2 (07:30)
[2018-07-24] MEDS ORDERED: DEXTROSE 50%, 50ML SYRINGE IVPush PRN (07:30)
[2018-07-24] MEDS ORDERED: CALCIUM GLUCONATE 4.6 MEQ in SODIUM CHLORIDE 0.9% 50 ML IV ONE (07:30)
[2018-07-24] MEDS ORDERED: HEPARIN 5,000 UNITS/ML, 1ML ONE (07:34)
[2018-07-24] MEDS ORDERED: AMOXICILLIN/CLAV 875-125MG TABLET ONE (07:35)
[2018-07-24] MEDS ORDERED: DOXYCYCLINE 100MG TABLET ONE (07:35)
--- NOTE | 2018-07-24 07:40 | NUR ---
MEDICATED FOR HIGH B/P
--- NOTE | 2018-07-24 07:41 | NUR ---
Robi worley in [facility] - 07/24/18 at 0820 by TONIA ORDERED AM MEDICATION FROM NAUSEA
[2018-07-24] MEDS: AMOXICILLIN/CLAV 875-125MG TABLET PO SCH ×2 (08:09→21:10)
[2018-07-24] MEDS: HEPARIN 5,000 UNITS/ML, 1ML SQ SCH ×3 (08:09→22:12)
[2018-07-24] MEDS: DOXYCYCLINE 100MG TABLET PO SCH ×2 (08:09→21:10)
--- NOTE | 2018-07-24 08:20 | NUR ---
REPORT FROM SHEA RN, PLAN OF CARE DISCUSSED
[2018-07-24] MEDS: CALCITRIOL 0.5 MCG CAPSULE PO SCH (08:56)
[2018-07-24] MEDS: CARVEDILOL 12.5 MG TABLET PO SCH ×2 (08:56→17:30)
[2018-07-24] MEDS: SEVELAMER 2.4 GM POWD.PACK PO SCH ×3 (08:57→17:30)
[2018-07-24] MEDS: CHOLECALCIFEROL 1,000 UNIT TABLET PO SCH (08:59)
[2018-07-24] MEDS: SODIUM CHLORIDE FLUSH 10ML SYR IVF SCH ×2 (09:00→21:12)
[2018-07-24] MEDS ORDERED: ARANESP 100 MCG/ML **ESRD SQ SCH (09:00)
[2018-07-24 11:23] LABS: ANION GAP 10 mmol/L (5-15); CALCIUM 9.3 mg/dL (8.5-10.1); CHLORIDE 99 mmol/L (98-107)
[2018-07-24 14:03] VITALS: BP 143/99
[2018-07-24] MEDS ORDERED: GENTAMICIN 0.1% TP SCH (17:00)
[2018-07-24] MEDS ORDERED: GENTAMICIN CRM 0.1%, 30GM TP SCH (17:00)
[2018-07-24 20:16] VITALS: BP 153/101
[2018-07-24] MEDS ORDERED: LABETALOL 5 MG/ML SYRINGE IVPush PRN (20:30)
[2018-07-24] MEDS: ZINC OX PO SCH (21:00)
[2018-07-24] MEDS: FERROUS FUM PO SCH (21:00)
[2018-07-24] MEDS: D3 PO SCH (21:00)
[2018-07-24] MEDS: [UNRECOGNIZED DRUG - OTHER] PO SCH (21:00)
[2018-07-24] MEDS: ATORVASTATIN 20 MG TABLET PO SCH (21:10)
[2018-07-24 22:10] VITALS: BP 150/103
[2018-07-24 22:51] VITALS: BP 141/96
[2018-07-25 01:23] VITALS: BP 130/89
[2018-07-25] MEDS: CARVEDILOL 12.5 MG TABLET PO SCH (05:34)
[2018-07-25 05:43] LABS: CHLORIDE 104 mmol/L (98-107)
[2018-07-25 05:51] LABS: ALANINE AMINOTRANSFERASE 13 U/L (12-78); ALBUMIN 2.3 g/dL (3.4-5.0); ALKALINE PHOSPHATASE 61 U/L (45-117); ANION GAP 9 mmol/L (5-15); BILIRUBIN,TOTAL 0.3 mg/dL (0.2-1.0); CALCIUM 9.2 mg/dL (8.5-10.1); TOTAL PROTEIN 5.8 g/dL (6.4-8.2)
[2018-07-25 05:57] LABS: MEAN CORPUSCULAR HEMOGLOBIN 35.4 pg (27.0-34.8); MEAN CORPUSCULAR VOLUME 114.5 fL (80-100); MEAN PLATELET VOLUME 7.6 fL (7.4-10.4); PLATELET COUNT 377 x10^3/uL (130-400); RED BLOOD COUNT 3.24 x10^6/uL (3.82-5.3); RED CELL DISTRIBUTION WIDTH 18.7 % (9.6-15.2)
[2018-07-25 06:27] LABS: BASOPHILS # (AUTO) 0.01 x10^3/uL (0-0.1); BASOPHILS % (AUTO) 0 % (0-1); EOSINOPHILS # (AUTO) 0.02 x10^3/uL (0-0.4); EOSINOPHILS % (AUTO) 0 % (1-7); LYMPHOCYTES # (AUTO) 0.88 x10^3/uL (1-3.4); LYMPHOCYTES % (AUTO) 13 % (22-44); MD SCAN; MONOCYTES # (AUTO) 0.33 x10^3/uL (0.2-0.8); MONOCYTES % (AUTO) 5 % (2-9); NEUTROPHILS # (AUTO) 5.68 x10^3/uL (1.8-6.8); NEUTROPHILS % (AUTO) 82 % (42-75)
[2018-07-25] MEDS: SEVELAMER 2.4 GM POWD.PACK PO SCH ×3 (08:34→17:28)
[2018-07-25] MEDS: CHOLECALCIFEROL 1,000 UNIT TABLET PO SCH (08:34)
[2018-07-25] MEDS: HEPARIN 5,000 UNITS/ML, 1ML SQ SCH ×2 (08:34→17:29)
[2018-07-25] MEDS: CALCITRIOL 0.5 MCG CAPSULE PO SCH (08:34)
[2018-07-25] MEDS: DOXYCYCLINE 100MG TABLET PO SCH ×2 (08:35→21:14)
[2018-07-25] MEDS: AMOXICILLIN/CLAV 875-125MG TABLET PO SCH ×2 (08:35→21:14)
[2018-07-25 08:46] VITALS: BP 135/91
[2018-07-25] MEDS: SODIUM CHLORIDE FLUSH 10ML SYR IVF SCH ×2 (09:00→21:14)
[2018-07-25 13:35] LABS: CLOSTRIDIUM DIFFICILE ANTIGEN NEGATIVE; CLOSTRIDIUM DIFFICILE TOXIN NEGATIVE (Negative)
[2018-07-25 14:20] VITALS: BP 132/89
[2018-07-25] MEDS: CARVEDILOL 25 MG TABLET PO SCH (17:28)
[2018-07-25 20:45] VITALS: BP 146/99
[2018-07-25] MEDS: FERROUS FUM PO SCH (21:00)
[2018-07-25] MEDS: D3 PO SCH (21:00)
[2018-07-25] MEDS: [UNRECOGNIZED DRUG - OTHER] PO SCH (21:00)
[2018-07-25] MEDS: ZINC OX PO SCH (21:00)
[2018-07-25] MEDS: ATORVASTATIN 20 MG TABLET PO SCH (21:14)
[2018-07-26 01:40] VITALS: BP 132/88
[2018-07-26] MEDS: HEPARIN 5,000 UNITS/ML, 1ML SQ SCH ×2 (02:02→10:00)
[2018-07-26] MEDS: CARVEDILOL 25 MG TABLET PO SCH (05:34)
[2018-07-26 05:42] LABS: ALBUMIN 2.2 g/dL (3.4-5.0); ANION GAP 9 mmol/L (5-15); CALCIUM 9.3 mg/dL (8.5-10.1); CHLORIDE 103 mmol/L (98-107)
[2018-07-26 05:45] LABS: ALANINE AMINOTRANSFERASE 8 U/L (12-78); ALKALINE PHOSPHATASE 57 U/L (45-117); BILIRUBIN,TOTAL 0.5 mg/dL (0.2-1.0); TOTAL PROTEIN 5.6 g/dL (6.4-8.2)
[2018-07-26 08:16] VITALS: BP 128/88
[2018-07-26] MEDS ORDERED: DILTIAZEM 30 MG TABLET PO SCH (09:00)
[2018-07-26] MEDS: CHOLECALCIFEROL 1,000 UNIT TABLET PO SCH (09:56)
[2018-07-26] MEDS: AMOXICILLIN/CLAV 875-125MG TABLET PO SCH (09:57)
[2018-07-26] MEDS: CALCITRIOL 0.5 MCG CAPSULE PO SCH (09:57)
[2018-07-26] MEDS: DOXYCYCLINE 100MG TABLET PO SCH (09:57)
[2018-07-26] MEDS: SEVELAMER 2.4 GM POWD.PACK PO SCH ×2 (09:59→12:00)
[2018-07-26] MEDS: SODIUM CHLORIDE FLUSH 10ML SYR IVF SCH (09:59)
[2018-07-26] MEDS ORDERED: AMOX1TAB12 PO (11:19)
[2018-07-26] MEDS ORDERED: CARV25TA12 PO (11:19)
[2018-07-26] MEDS ORDERED: DOXY100T PO (11:19)
== END 2018-07-26 12:24 | disposition home or self-care (01) | DRG 291 ==
LOC: ED 03:20 → EDIP 06:14 → 4WST 08:31 → DCLOUNGE 07-26 12:17
PROVIDERS: ADMIT Internal Medicine; ATTEND Internal Medicine
PROC: 3E1M39Z Irrigation of Peritoneal Cavity using Dialysate, Percutaneous Approach (ICD-10-PCS; principal; 2018-07-24)
DX: I13.2 Hypertensive heart and chronic kidney disease with heart failure and with stage 5 chronic kidney disease, or end stage renal disease (principal); N18.6 End stage renal disease; E43 Unspecified severe protein-calorie malnutrition; J18.9 Pneumonia, unspecified organism; I50.42 Chronic combined systolic (congestive) and diastolic (congestive) heart failure; N25.81 Secondary hyperparathyroidism of renal origin; E87.70 Fluid overload, unspecified; D53.9 Nutritional anemia, unspecified; D63.1 Anemia in chronic kidney disease; G43.809 Other migraine, not intractable, without status migrainosus; E78.5 Hyperlipidemia, unspecified; E87.5 Hyperkalemia; I95.89 Other hypotension; J06.9 Acute upper respiratory infection, unspecified; M32.14 Glomerular disease in systemic lupus erythematosus; N25.0 Renal osteodystrophy; Z79.4 Long term (current) use of insulin; Z86.73 Personal history of transient ischemic attack (TIA), and cerebral infarction without residual deficits; Z87.01 Personal history of pneumonia (recurrent); Z87.410 Personal history of cervical dysplasia; Z79.899 Other long term (current) drug therapy; Z99.2 Dependence on renal dialysis; Z68.20 Body mass index [BMI] 20.0-20.9, adult
CPT/HCPCS: 36415; 71045; 80048; 80053; 82306; 82962; 83735; 83880; 83970; 84100; 85025; 86704; 86706; 87324; 87340; 93005; 94640; G0378; J0610; J0882; J1644; J1815; J7060; J7620; J0360; J7512; J7517

== ENCOUNTER 2018-11-02 13:32 | Outpatient (CLI) | payer MEDICARE | END 2018-11-02 23:59 | disposition home or self-care (01) | LOC: CFH 13:32 | PROVIDERS: ATTEND Internal Medicine Cardiovascular Disease | DX: I34.0 Nonrheumatic mitral (valve) insufficiency (principal); I42.9 Cardiomyopathy, unspecified; I10 Essential (primary) hypertension; E78.5 Hyperlipidemia, unspecified | CPT/HCPCS: 93306 ==

== ENCOUNTER → 2019-08-01 | Outpatient (CLI) | payer MEDICARE ==
[~2019-08-01] MED LIST changes: +AMOX1TAB12 PO; +DOXY100T PO; -DOXY100T10 PO; +DOXY100T23 PO; -GUAI200T3 PO; +GUAI200T37 PO
== END | disposition home or self-care (01) ==
LOC: CFH 09:49
PROVIDERS: ATTEND Internal Medicine Cardiovascular Disease
DX: I08.8 Other rheumatic multiple valve diseases (principal); I10 Essential (primary) hypertension; E78.5 Hyperlipidemia, unspecified; I42.9 Cardiomyopathy, unspecified
CPT/HCPCS: 93306

== ENCOUNTER 2019-09-05 22:13 | Emergency (ER) | payer MEDICARE ==
[~2019-09-05] VITALS: Ht 160 cm; Wt 55.0 kg
--- NOTE | 2019-09-05 22:36 | NUR ---
THIS IS A 34 YO F RESTING ON GURNEY, CONNECTED TO ALL MONITORING WHO REPORTS BEING BROUGHT IN BY EMS W/ C/O PALPITATIONS THAT STARTED TONIGHT AT 1900. PT REPORTS HR HAS BEEN BETWEEN 99-107. PT DENIES CARDIAC HX. HX:KF W/ DIALYSIS,CHF. PT VSS, NADN. LAB IN ROOM.
--- NOTE | 2019-09-05 22:41 | NUR ---
MED REC DONE. LAB IN ROOM.
[2019-09-05 23:01] LABS: BASOPHILS % (AUTO) 0 % (0-1); EOSINOPHILS # (AUTO) 0.13 x10^3/uL (0-0.4); EOSINOPHILS % (AUTO) 2 % (1-7); LYMPHOCYTES # (AUTO) 0.35 x10^3/uL (1-3.4); LYMPHOCYTES % (AUTO) 6 % (22-44); MD NO; MEAN CORPUSCULAR HGB CONC 32.7 g/dL (32.4-35.8); MEAN CORPUSCULAR VOLUME 107.1 fL (80-100); MEAN PLATELET VOLUME 7.5 fL (7.4-10.4); MONOCYTES # (AUTO) 0.38 x10^3/uL (0.2-0.8); MONOCYTES % (AUTO) 6 % (2-9); NEUTROPHILS # (AUTO) 5.09 x10^3/uL (1.8-6.8); NEUTROPHILS % (AUTO) 85 % (42-75); PLATELET COUNT 408 x10^3/uL (130-400); RED BLOOD COUNT 2.56 x10^6/uL (3.82-5.3); RED CELL DISTRIBUTION WIDTH 15.8 % (9.6-15.2)
[2019-09-05 23:05] LABS: ALANINE AMINOTRANSFERASE 16 U/L (12-78); ALBUMIN 2.4 g/dL (3.4-5.0); ANION GAP 11 mmol/L (5-15); CALCIUM 9.1 mg/dL (8.5-10.1); CHLORIDE 89 mmol/L (98-107); CREATININE 9.75 mg/dL (0.55-1.02)
[2019-09-05 23:10] LABS: ALKALINE PHOSPHATASE 72 U/L (45-117); BILIRUBIN,TOTAL 0.3 mg/dL (0.2-1.0); TOTAL PROTEIN 7.3 g/dL (6.4-8.2); TROPONIN I < 0.015 ng/mL (0.000-0.045)
--- NOTE | 2019-09-05 23:16 | NUR ---
THIS RN UNABLE TO START PIV AFTER 2 ATTEMPTS. LITTLE RN IN ROOM FOR ATTEMPT.
--- NOTE | 2019-09-06 00:22 | NUR ---
PT RESTING ON GURNEY W/ CALL LIGHT IN REACH. RESP EVEN AND UNLABORED, GHANSHYAM. REINSURANCE CLAIMS ANALYST IN ROOM.
[2019-09-06] MEDS ORDERED: POTASSIUM CHLORIDE 20 MEQ TAB.ER.PRT PO ONE (01:00)
--- NOTE | 2019-09-06 01:20 | NUR ---
PARTY HOST/HOSTESS REPORTS PULLING OFF 2L OF CLEAR FLUID.
[2019-09-06 01:45] VITALS: BP 93/61
[2019-09-06] MEDS ORDERED: POTASSIUM CHLORIDE 20 MEQ TAB.ER.PRT ONE (02:09)
--- NOTE | 2019-09-06 02:12 | NUR ---
PT RESTING ON GURNEY W/ CALL LIGHT IN REACH, SIDE RAILS UPX2. ASHISH, GHANSHYAM. AWAITING RESULTS.
[2019-09-06 02:32] LABS: CELLS COUNTED 96
--- NOTE | 2019-09-06 02:38 | NUR ---
PT AMBULATED DOWN THE URBINA W/ A STEADY GAIT.
--- NOTE | 2019-09-06 03:20 | NUR ---
Patient given discharge instructions and they have confirmed that they understand the instructions. Patient ambulatory with steady gait. Taxi voucher provided for patient.
== END 2019-09-06 03:22 | disposition home or self-care (01) ==
LOC: ED 23:12
DX: R00.2 Palpitations (principal); I13.2 Hypertensive heart and chronic kidney disease with heart failure and with stage 5 chronic kidney disease, or end stage renal disease; N18.6 End stage renal disease; I50.9 Heart failure, unspecified; R94.31 Abnormal electrocardiogram [ECG] [EKG]; Z86.73 Personal history of transient ischemic attack (TIA), and cerebral infarction without residual deficits
CPT/HCPCS: 36415; 71045; 80053; 83690; 84484; 84703; 85025; 87040; 87070; 87205; 89051; 93005; 99285

== ENCOUNTER → 2019-09-13 | Outpatient (CLI) | payer MEDICARE ==
[2019-09-13 14:44] LABS: HCT (SEDRATE) 27.9 % (34.6-47.8)
== END | disposition home or self-care (01) ==
LOC: LAB 14:22
PROVIDERS: ATTEND Internal Medicine Nephrology
DX: N18.6 End stage renal disease (principal); M32.9 Systemic lupus erythematosus, unspecified; R76.8 Other specified abnormal immunological findings in serum; D84.1 Defects in the complement system; R71.8 Other abnormality of red blood cells; R79.82 Elevated C-reactive protein (CRP)
CPT/HCPCS: 36415; 85651; 86038; 86140; 86160; 86162

== ENCOUNTER → 2019-09-15 | Outpatient (CLI) | payer MEDICARE | END | disposition home or self-care (01) | LOC: CFH 08:07 | PROVIDERS: ATTEND Nurse Practitioner | DX: K44.9 Diaphragmatic hernia without obstruction or gangrene (principal); I51.7 Cardiomegaly; N17.9 Acute kidney failure, unspecified; M32.14 Glomerular disease in systemic lupus erythematosus; Z99.2 Dependence on renal dialysis | CPT/HCPCS: 74150 ==

== ENCOUNTER 2019-10-04 10:31 | Emergency (ER) | payer MEDICARE ==
[~2019-10-04] VITALS: Ht 160 cm; Wt 57.5 kg
[~2019-10-04 10:31] MED LIST changes: +BENZ-17 PO; +CHOL10003 PO; +HYDR200T5 PO
[2019-10-04 11:57] VITALS: BP 112/78
[2019-10-04 12:21] LABS: MEAN CORPUSCULAR HEMOGLOBIN 34.1 pg (27.0-34.8); MEAN CORPUSCULAR HGB CONC 31.5 g/dL (32.4-35.8); MEAN CORPUSCULAR VOLUME 108.5 fL (80-100); MEAN PLATELET VOLUME 6.9 fL (7.4-10.4); PLATELET COUNT 644 x10^3/uL (130-400); RED BLOOD COUNT 2.21 x10^6/uL (3.82-5.3); RED CELL DISTRIBUTION WIDTH 15.3 % (9.6-15.2)
[2019-10-04 12:27] LABS: ANION GAP 6 mmol/L (5-15); CALCIUM 9.3 mg/dL (8.5-10.1); CHLORIDE 96 mmol/L (98-107)
[2019-10-04 12:33] LABS: ANISOCYTOSIS 1+; BASOPHILS % (AUTO) 0 % (0-1); EOSINOPHILS # (AUTO) 0.06 x10^3/uL (0-0.4); EOSINOPHILS % (AUTO) 1 % (1-7); LYMPHOCYTES # (AUTO) 0.42 x10^3/uL (1-3.4); LYMPHOCYTES % (AUTO) 8 % (22-44); MD MORPH REVIEW ONLY; MONOCYTES # (AUTO) 0.37 x10^3/uL (0.2-0.8); MONOCYTES % (AUTO) 7 % (2-9); NEUTROPHILS # (AUTO) 4.19 x10^3/uL (1.8-6.8); NEUTROPHILS % (AUTO) 83 % (42-75); POLYCHROMASIA 1+
[2019-10-04 12:34] LABS: ALANINE AMINOTRANSFERASE 15 U/L (12-78); ALBUMIN 2.2 g/dL (3.4-5.0); ALKALINE PHOSPHATASE 63 U/L (45-117); BILIRUBIN,TOTAL 0.3 mg/dL (0.2-1.0); CREATININE 9.53 mg/dL (0.55-1.02); TEAR DROPS 1+; TOTAL PROTEIN 6.8 g/dL (6.4-8.2)
[2019-10-04 12:36] LABS: <PLATELET ESTIMATE> INCREASED; <PLT MORPHOLOGY> NORMAL PLT MORPH; MICROCYTOSIS 1+; STOMATOCYTES 1+
== END 2019-10-04 13:46 | disposition home or self-care (01) ==
LOC: ED 11:25
DX: K59.00 Constipation, unspecified (principal); R10.2 Pelvic and perineal pain; I10 Essential (primary) hypertension; K21.9 Gastro-esophageal reflux disease without esophagitis; Z79.899 Other long term (current) drug therapy; Z99.2 Dependence on renal dialysis
CPT/HCPCS: 36415; 74022; 80053; 84702; 85025; 99284

== ENCOUNTER 2019-10-08 08:40 | Emergency (ER) | payer MEDICARE ==
[~2019-10-08] VITALS: Ht 160 cm; Wt 57.7 kg
[2019-10-08] MEDS ORDERED: CARV25TA12 PO (09:44)
[2019-10-08 10:37] LABS: BASOPHILS # (AUTO) 0.02 x10^3/uL (0-0.1); BASOPHILS % (AUTO) 0 % (0-1); EOSINOPHILS # (AUTO) 0.04 x10^3/uL (0-0.4); EOSINOPHILS % (AUTO) 1 % (1-7); LYMPHOCYTES # (AUTO) 0.39 x10^3/uL (1-3.4); LYMPHOCYTES % (AUTO) 9 % (22-44); MD NO; MEAN CORPUSCULAR HEMOGLOBIN 33.3 pg (27.0-34.8); MEAN CORPUSCULAR HGB CONC 30.7 g/dL (32.4-35.8); MEAN CORPUSCULAR VOLUME 108.7 fL (80-100); MONOCYTES # (AUTO) 0.41 x10^3/uL (0.2-0.8); MONOCYTES % (AUTO) 9 % (2-9); NEUTROPHILS # (AUTO) 3.67 x10^3/uL (1.8-6.8); NEUTROPHILS % (AUTO) 81 % (42-75); PLATELET COUNT 655 x10^3/uL (130-400); RED BLOOD COUNT 2.19 x10^6/uL (3.82-5.3); RED CELL DISTRIBUTION WIDTH 15.9 % (9.6-15.2)
[2019-10-08 10:45] LABS: ALANINE AMINOTRANSFERASE 11 U/L (12-78); ALBUMIN 2.4 g/dL (3.4-5.0); ANION GAP 8 mmol/L (5-15); CALCIUM 9.5 mg/dL (8.5-10.1); CHLORIDE 95 mmol/L (98-107); CREATININE 9.32 mg/dL (0.55-1.02)
[2019-10-08 10:50] LABS: ALKALINE PHOSPHATASE 70 U/L (45-117); BILIRUBIN,TOTAL 0.3 mg/dL (0.2-1.0); TOTAL PROTEIN 6.6 g/dL (6.4-8.2)
[2019-10-08 11:51] VITALS: BP 123/80
--- NOTE | 2019-10-09 07:04 | NUR ---
late entry for 10/08/19: PT IN HOSPITAL GOWN. PT ON VITALS MONITORS. ERP IN EVALUATING PT. WILL CONTINUE TO MONITOR.
== END 2019-10-08 11:57 | disposition home or self-care (01) ==
LOC: ED 10:03
DX: K59.00 Constipation, unspecified (principal); I13.0 Hypertensive heart and chronic kidney disease with heart failure and stage 1 through stage 4 chronic kidney disease, or unspecified chronic kidney disease; N18.9 Chronic kidney disease, unspecified; I50.9 Heart failure, unspecified; D63.1 Anemia in chronic kidney disease; M32.9 Systemic lupus erythematosus, unspecified; Z49.02 Encounter for fitting and adjustment of peritoneal dialysis catheter
CPT/HCPCS: 36415; 74021; 80053; 84703; 85025; 99284

== ENCOUNTER 2019-11-06 09:26 | Emergency (ER) | payer MEDICARE ==
[~2019-11-06] VITALS: Ht 160 cm; Wt 60.3 kg
--- NOTE | 2019-11-06 10:16 | NUR ---
pt presents to ED with c/o sob onset this am, abdominal swelling that has been present x 2 months but worse yesterday and today. pt does peritoneal dialysis with abd dialysis cath in place. pt has had cough for past several months, tested negative 09/2019. pt is a&o, resps even and unlabored. all monitors in place. pt is nsr on ekg monitor tech with no ectopy noted. call light in reach. pt dressed in gown, blanket provided.
[2019-11-06 10:49] LABS: BASOPHILS # (AUTO) 0.01 x10^3/uL (0-0.1); BASOPHILS % (AUTO) 0 % (0-1); EOSINOPHILS # (AUTO) 0.03 x10^3/uL (0-0.4); EOSINOPHILS % (AUTO) 1 % (1-7); LYMPHOCYTES # (AUTO) 0.27 x10^3/uL (1-3.4); LYMPHOCYTES % (AUTO) 7 % (22-44); MD NO; MEAN CORPUSCULAR HEMOGLOBIN 33.8 pg (27.0-34.8); MEAN CORPUSCULAR HGB CONC 31.9 g/dL (32.4-35.8); MEAN CORPUSCULAR VOLUME 106.2 fL (80-100); MEAN PLATELET VOLUME 7.1 fL (7.4-10.4); MONOCYTES # (AUTO) 0.25 x10^3/uL (0.2-0.8); MONOCYTES % (AUTO) 7 % (2-9); NEUTROPHILS # (AUTO) 3.17 x10^3/uL (1.8-6.8); NEUTROPHILS % (AUTO) 85 % (42-75); PLATELET COUNT 472 x10^3/uL (130-400); RED BLOOD COUNT 2.29 x10^6/uL (3.82-5.3); RED CELL DISTRIBUTION WIDTH 16.8 % (9.6-15.2)
[2019-11-06 11:02] LABS: ALANINE AMINOTRANSFERASE 12 U/L (12-78); ALBUMIN 2.6 g/dL (3.4-5.0); ANION GAP 11 mmol/L (5-15); CHLORIDE 89 mmol/L (98-107)
[2019-11-06 11:03] LABS: ALKALINE PHOSPHATASE 70 U/L (45-117); BILIRUBIN,TOTAL 0.3 mg/dL (0.2-1.0)
--- NOTE | 2019-11-06 11:10 | NUR ---
MALCOLM Brandon at bedside to update pt with POC and results. awaiting further orders at this time.
[2019-11-06 11:43] VITALS: BP 140/89
[2019-11-06] MEDS ORDERED: AZITHROMYCIN 500 MG TABLET PO ONE (12:30)
[2019-11-06] MEDS ORDERED: CEFTRIAXONE 1,000 MG IM ONE (12:30)
[2019-11-06] MEDS ORDERED: CEFTRIAXONE 1,000 MG ONE (12:32)
[2019-11-06] MEDS ORDERED: AZITHROMYCIN 250 MG TABLET ONE (12:32)
[2019-11-06] MEDS ORDERED: LIDOCAINE-MPF 1%, 5ML ONE (12:32)
--- NOTE | 2019-11-06 13:07 | NUR ---
Patient/Caregiver given discharge instructions and they have confirmed that they understand the instructions. Patient ambulatory with steady gait.
--- NOTE | 2019-11-06 13:08 | NUR ---
Pt medicated with abx prior to dc.
== END 2019-11-06 10:37 | disposition home or self-care (01) ==
LOC: ED 10:36
DX: J18.0 Bronchopneumonia, unspecified organism (principal); D64.9 Anemia, unspecified; R94.31 Abnormal electrocardiogram [ECG] [EKG]; I11.0 Hypertensive heart disease with heart failure; I50.9 Heart failure, unspecified; K21.9 Gastro-esophageal reflux disease without esophagitis; Z86.73 Personal history of transient ischemic attack (TIA), and cerebral infarction without residual deficits
CPT/HCPCS: 36415; 74022; 80053; 83690; 85025; 93005; 96372; 99285; J0696

== ENCOUNTER 2019-11-20 09:01 | Emergency (ER) | payer MEDICARE ==
[~2019-11-20] VITALS: Ht 160 cm; Wt 60.6 kg
--- NOTE | 2019-11-20 09:30 | NUR ---
THIS IS A 34 YO F W/ C/O PERSISTENT COUGH/SOB AFTER FINISHING ABX COURSE FOR PNA. PT RESTING ON [employer] W/ CALL LIGHT IN REACH AND SIDE RAILS UPX2. CONNECTED TO ALL MONITORING, TACHYCARDIC, OTHER VS WDL. NADN.
[2019-11-20] MEDS ORDERED: ALBUTEROL SULFATE 2.5 MG/3 ML ONE (09:37)
[2019-11-20] MEDS ORDERED: ALBUTEROL SULFATE 2.5 MG/3 ML NPPB ONE (10:00)
--- NOTE | 2019-11-20 10:03 | NUR ---
LAB IN ROOM.
[2019-11-20 10:28] LABS: MEAN CORPUSCULAR HEMOGLOBIN 33.7 pg (27.0-34.8); MEAN CORPUSCULAR HGB CONC 30.4 g/dL (32.4-35.8); MEAN CORPUSCULAR VOLUME 110.9 fL (80-100); MEAN PLATELET VOLUME 7.3 fL (7.4-10.4); PLATELET COUNT 523 x10^3/uL (130-400); RED BLOOD COUNT 3.07 x10^6/uL (3.82-5.3); RED CELL DISTRIBUTION WIDTH 17.1 % (9.6-15.2)
[2019-11-20 10:29] LABS: ALANINE AMINOTRANSFERASE 21 U/L (12-78); ALBUMIN 3.1 g/dL (3.4-5.0); ANION GAP 8 mmol/L (5-15); CALCIUM 9.9 mg/dL (8.5-10.1); CHLORIDE 94 mmol/L (98-107)
[2019-11-20 10:36] LABS: ALKALINE PHOSPHATASE 87 U/L (45-117); BILIRUBIN,TOTAL 0.4 mg/dL (0.2-1.0); TOTAL PROTEIN 7.6 g/dL (6.4-8.2)
[2019-11-20] MEDS ORDERED: BENZONATATE 100 MG CAPSULE ONE (10:38)
[2019-11-20 10:44] VITALS: BP 129/108
--- NOTE | 2019-11-20 10:44 | NUR ---
PT REPORTS NO RELIEF AFTER BREATHING TX. REQUESTING TESSALON PEARLS FOR COUGH. UPDATED. PT MEDICATED PER EMAR.
[2019-11-20 10:46] LABS: BASOPHILS # (AUTO) 0.01 x10^3/uL (0-0.1); BASOPHILS % (AUTO) 0 % (0-1); EOSINOPHILS # (AUTO) 0.03 x10^3/uL (0-0.4); EOSINOPHILS % (AUTO) 0 % (1-7); LYMPHOCYTES # (AUTO) 0.82 x10^3/uL (1-3.4); LYMPHOCYTES % (AUTO) 10 % (22-44); MD MORPH REVIEW ONLY; MONOCYTES # (AUTO) 0.26 x10^3/uL (0.2-0.8); MONOCYTES % (AUTO) 3 % (2-9); NEUTROPHILS # (AUTO) 6.83 x10^3/uL (1.8-6.8); NEUTROPHILS % (AUTO) 86 % (42-75)
[2019-11-20 10:49] LABS: <PLATELET ESTIMATE> INCREASED; <PLT MORPHOLOGY> NORMAL PLT MORPH; ANISOCYTOSIS 1+; POLYCHROMASIA 1+
[2019-11-20] MEDS ORDERED: BENZONATATE 100 MG CAPSULE PO ONE (11:00)
--- NOTE | 2019-11-20 11:01 | NUR ---
IN ROOM FOR RECHECK.
--- NOTE | 2019-11-20 11:26 | NUR ---
Patient given discharge instructions and they have confirmed that they understand the instructions. Patient ambulatory with steady gait.
== END 2019-11-20 11:27 | disposition home or self-care (01) ==
LOC: ED 10:19
DX: J12.9 Viral pneumonia, unspecified (principal); I13.2 Hypertensive heart and chronic kidney disease with heart failure and with stage 5 chronic kidney disease, or end stage renal disease; N18.6 End stage renal disease; I50.9 Heart failure, unspecified; Z99.2 Dependence on renal dialysis; R06.02 Shortness of breath; R19.7 Diarrhea, unspecified; R11.0 Nausea; K21.9 Gastro-esophageal reflux disease without esophagitis; Z86.73 Personal history of transient ischemic attack (TIA), and cerebral infarction without residual deficits
CPT/HCPCS: 36415; 71045; 80053; 82728; 83735; 84100; 84145; 85025; 86140; 93005; 94640; 99285; J7512; J7613

== ENCOUNTER 2019-11-30 10:17 | Emergency (ER) | payer MEDICARE ==
[~2019-11-30] VITALS: Ht 160 cm; Wt 60.7 kg
[~2019-11-30 10:17] MED LIST changes: -PANT40TA5 PO; +PANT40TA6 PO
[2019-11-30] MEDS ORDERED: SODIUM CHLORIDE 0.9% 1,000 ML IV ONE (10:48)
[2019-11-30 11:13] LABS: BASOPHILS # (AUTO) 0.01 x10^3/uL (0-0.1); BASOPHILS % (AUTO) 0 % (0-1); EOSINOPHILS # (AUTO) 0.04 x10^3/uL (0-0.4); EOSINOPHILS % (AUTO) 1 % (1-7); LYMPHOCYTES # (AUTO) 0.31 x10^3/uL (1-3.4); LYMPHOCYTES % (AUTO) 6 % (22-44); MD NO; MEAN CORPUSCULAR HEMOGLOBIN 33.3 pg (27.0-34.8); MEAN CORPUSCULAR HGB CONC 30.5 g/dL (32.4-35.8); MEAN CORPUSCULAR VOLUME 109.3 fL (80-100); MEAN PLATELET VOLUME 7.3 fL (7.4-10.4); MONOCYTES # (AUTO) 0.22 x10^3/uL (0.2-0.8); MONOCYTES % (AUTO) 4 % (2-9); NEUTROPHILS # (AUTO) 4.96 x10^3/uL (1.8-6.8); NEUTROPHILS % (AUTO) 90 % (42-75); PLATELET COUNT 428 x10^3/uL (130-400); RED BLOOD COUNT 3.05 x10^6/uL (3.82-5.3); RED CELL DISTRIBUTION WIDTH 17.9 % (9.6-15.2)
[2019-11-30 11:23] LABS: ALANINE AMINOTRANSFERASE 17 U/L (12-78); ALBUMIN 2.8 g/dL (3.4-5.0); ANION GAP 12 mmol/L (5-15); CALCIUM 10.4 mg/dL (8.5-10.1); CHLORIDE 95 mmol/L (98-107)
[2019-11-30 11:28] LABS: ALKALINE PHOSPHATASE 63 U/L (45-117); BILIRUBIN,TOTAL 0.2 mg/dL (0.2-1.0); CREATININE 9.53 mg/dL (0.55-1.02); TOTAL PROTEIN 6.4 g/dL (6.4-8.2)
[2019-11-30] MEDS ORDERED: CARV25TA12 PO (11:44)
[2019-11-30] MEDS ORDERED: HYDR200T72 PO (11:46)
[2019-11-30 13:01] VITALS: BP 132/64
== END 2019-11-30 13:03 | disposition home or self-care (01) ==
LOC: ED 11:14
DX: N18.9 Chronic kidney disease, unspecified (principal); R14.0 Abdominal distension (gaseous); R00.0 Tachycardia, unspecified; I50.9 Heart failure, unspecified
CPT/HCPCS: 36415; 80053; 83735; 84702; 85025; 93005; 96360; 99284; J7030; 84703

== ENCOUNTER → 2019-12-07 | Outpatient (CLI) | payer MEDICARE ==
[~2019-12-07] MED LIST changes: +HYDR200T72 PO
== END | disposition home or self-care (01) ==
LOC: RAD 14:34
PROVIDERS: ATTEND Internal Medicine Nephrology
DX: Z49.02 Encounter for fitting and adjustment of peritoneal dialysis catheter (principal)
CPT/HCPCS: 74018

== ENCOUNTER 2019-12-08 14:50 | Emergency (ER) | payer MEDICARE ==
[~2019-12-08] VITALS: Ht 160 cm; Wt 62.7 kg
[2019-12-08 14:53] VITALS: BP 151/95
== END 2019-12-08 15:44 ==
LOC: ED 15:38
DX: J18.9 Pneumonia, unspecified organism (principal); R05 Cough; I11.0 Hypertensive heart disease with heart failure; K21.9 Gastro-esophageal reflux disease without esophagitis; Z86.73 Personal history of transient ischemic attack (TIA), and cerebral infarction without residual deficits
CPT/HCPCS: 99283

== ENCOUNTER 2019-12-14 07:25 | Emergency (ER) | payer MEDICARE ==
[~2019-12-14] VITALS: Ht 162.6 cm; Wt 61.8 kg
--- NOTE | 2019-12-14 08:01 | NUR ---
RECENT PNEUMONIA DIAGNOSIS LAST WEEK; ON DOXYCYCLINE. WAS IMPROVING BUT NOW IS GETTING WORSE. STILL HAVING INTERMITTANT PAIN IN CHEST. PT IN BED IN GOWN WITH CONT SECOND FACING BASTER, SPO2, BPQ 30 MIN, SID3E RAILS UP X2 CALL LIGHT IN REACH. WENT OVER PLAN FROM ORDER LIST, AGREES TO PLAN. XRAY IN ROOM.
[2019-12-14 08:44] VITALS: BP 124/74
== END 2019-12-14 08:45 | disposition home or self-care (01) ==
LOC: ED 08:16
DX: J18.0 Bronchopneumonia, unspecified organism (principal); K21.9 Gastro-esophageal reflux disease without esophagitis; I11.0 Hypertensive heart disease with heart failure; I50.9 Heart failure, unspecified; R94.31 Abnormal electrocardiogram [ECG] [EKG]
CPT/HCPCS: 71045; 93005; 99283

== ENCOUNTER 2019-12-22 14:22 | Emergency (ER) | payer MEDICARE ==
[~2019-12-22] VITALS: Ht 162.6 cm; Wt 63.0 kg
[2019-12-22 15:38] LABS: MEAN CORPUSCULAR HEMOGLOBIN 33.6 pg (27.0-34.8); MEAN CORPUSCULAR HGB CONC 31.2 g/dL (32.4-35.8); MEAN PLATELET VOLUME 7.6 fL (7.4-10.4); PLATELET COUNT 360 x10^3/uL (130-400); RED BLOOD COUNT 2.99 x10^6/uL (3.82-5.3); RED CELL DISTRIBUTION WIDTH 16.3 % (9.6-15.2)
[2019-12-22 15:46] LABS: ALBUMIN 2.4 g/dL (3.4-5.0); ANION GAP 10 mmol/L (5-15); CALCIUM 9.4 mg/dL (8.5-10.1); CHLORIDE 96 mmol/L (98-107)
--- NOTE | 2019-12-22 15:51 | NUR ---
PT BACK FROM CT VIA BO. PT RESTING WITH BED IN LOWEST POSITION, CALL LIGHT WITHIN REACH.
--- NOTE | 2019-12-22 15:54 | NUR ---
PT WAS SEEN EARLY TODAY BY [facility] BECAUSE SHE WANTED TO "CHECK UP ON PNEUMONIA". PER PT SHE WAS DIAGNOSED WITH PNEUMONIA 12/08/2019.
--- NOTE | 2019-12-22 15:55 | NUR ---
PT ALSO COMPLAINING OF WOUND ON RIGHT THIGH. PT REPORTS "IT STARTED ACNE AND STARTED TO GET PUS". SHE STATES SHE WAS ALSO GOING TO [facility] TO GET IT LOOKED [facility].
[2019-12-22 15:58] VITALS: BP 145/95
[2019-12-22 16:17] LABS: MD YES
[2019-12-22 16:19] LABS: EOS#(MANUAL) 0.07 x10^3/uL (0.0-0.4); EOS% (MANUAL) 2 % (1-7); LYMPH#(MANUAL) 0.61 x10^3/uL (1-3.4); LYMPHS% (MANUAL) 17 % (22-44); MONOS#(MANUAL) 0.47 x10^3/uL (0.3-2.7); MONOS% (MANUAL) 13 % (2-9); SEG#(MANUAL) 2.45 x10^3/uL (1.8-6.8); SEGS% (MANUAL) 68 % (42-75)
[2019-12-22 16:20] LABS: ANISOCYTOSIS 1+; OVALOCYTES 1+; TEAR DROPS 1+
[2019-12-22 16:21] LABS: <PLATELET ESTIMATE> ADEQUATE; <PLT MORPHOLOGY> NORMAL PLT MORPH
== END 2019-12-22 16:42 | disposition left against medical advice (07) ==
LOC: ED 14:39
DX: R60.0 Localized edema (principal); R06.02 Shortness of breath; R05 Cough; I21.9 Acute myocardial infarction, unspecified; K21.9 Gastro-esophageal reflux disease without esophagitis; I50.9 Heart failure, unspecified; I11.0 Hypertensive heart disease with heart failure
CPT/HCPCS: 36415; 71250; 80048; 82040; 85025; 93005; 99285